=== PATIENT | male | born 1960 | race Caucasian/White ===

== ENCOUNTER 2018-06-27 18:58 | Outpatient (REF) | payer OTHER, SELFPAY ==
[2018-06-27 22:13] LABS: Anion Gap 7.5 mmol/L (3-11); BUN 19 mg/dL (7-18); CO2 30.5 mmol/L (21.0-32.0); CREATININE 1.39 mg/dL (0.70-1.30); Calcium 9.2 mg/dL (8.5-10.1); Chloride 103 mmol/L (98-107); Glucose 84 mg/dL (70-100); Potassium 4.3 mmol/L (3.5-5.1); Sodium 141 mmol/L (136-145)
== END 2018-06-27 19:18 ==
LOC: NCHCN 18:58
PROVIDERS: PCP Internal Medicine; Visit Provider Internal Medicine
DX: I10 Essential (primary) hypertension (principal)
CPT/HCPCS: 80048

== ENCOUNTER 2019-08-01 10:12 | Outpatient (CLI) | payer OTHER, SELFPAY ==
--- NOTE | 2019-08-01 10:45 | DI.RAD_ITS ---
EXAM: XR CHEST 2V PA LATERAL CLINICAL HISTORY: PERSISTENT COUGH, NONSMOKER, R05; FEVER, R50.9 TECHNIQUE: COMPARISON: No exams were available for comparison FINDINGS: There is a right humeral head prosthesis. The heart is not enlarged. There is some prominence of th e central pulmonary markings which may represent bronchial wall thickening without evidence of focal consolidation. No pleural effusion seen. IMPRESSION: Findings raising the possibility of bronchial inflammation. No focal consolidation seen.
== END 2019-08-01 10:32 ==
PROVIDERS: PCP Internal Medicine; Visit Provider Internal Medicine
DX: R05 Cough (principal); R50.9 Fever, unspecified; Z96.611 Presence of right artificial shoulder joint; J40 Bronchitis, not specified as acute or chronic
CPT/HCPCS: 71046

== ENCOUNTER 2019-08-01 15:27 | Outpatient (REF) | payer OTHER, SELFPAY ==
[2019-08-01 20:32] LABS: Abs Immature Grans 0.09 k/cumm (0.0-0.09); Absolute Basophil Count 0.05 k/cumm (0.0-0.2); Absolute Lymphocyte Count 1.27 k/cumm (1.2-3.4); Absolute Neutrophil Count 8.53 k/cumm (1.2-6.7); Basophils % 0.4; Eosinophils % 2.6; HCT 36.9 % (40.0-50.0); HGB 11.9 g/dL (13.5-17.5); Immature Grans % 0.8; Mean Corp. HGB Concentration 32.2 g/dL (32.0-36.0); Mean Corpuscular Hemoglobin 30.1 pg (27.0-33.0); Mean Corpuscular Volume 93.2 fL (80-95); Mean Platelet Volume 9.2 fL (8.0-11.0); Monocytes % 11.6; Neutrophils % 73.6; RBC 3.96 m/cumm (4.50-6.00); RBC Distribution Width 12.4 % (11.8-14.1); White Blood Cell Count 11.59 k/cumm (4.4-10.8)
[2019-08-01 20:56] LABS: ALT 43 U/L (16-63); AST 24 U/L (15-37); Albumin 2.9 g/dL (3.4-5.0); Alkaline Phosphatase 67 U/L (46-116); Anion Gap 8.5 mmol/L (3-11); BUN 13 mg/dL (7-18); Bilirubin, Total 0.3 mg/dL (0.2-1.0); CO2 29.5 mmol/L (21.0-32.0); CREATININE 0.89 mg/dL (0.70-1.30); Calcium 8.8 mg/dL (8.5-10.1); Chloride 104 mmol/L (98-107); Glucose 112 mg/dL (74-106); Potassium 4.6 mmol/L (3.5-5.1); Sodium 142 mmol/L (136-145); Total Protein 6.7 g/dL (6.4-8.2)
[2019-08-01 20:57] LABS: Absolute Monocyte Count 1.34 k/cumm (0.11-0.7)
[2019-08-01 21:41] LABS: Platelet Count 663 x1000/uL (130-400)
[2019-08-01 21:42] LABS: Diff Comment PLT Morph Reviewed; RBC Morphology Normal
== END 2019-08-01 15:47 ==
LOC: NCHCN 15:27
PROVIDERS: PCP Internal Medicine; Visit Provider Internal Medicine
DX: Z00.00 Encounter for general adult medical examination without abnormal findings (principal); I10 Essential (primary) hypertension
CPT/HCPCS: 80053; 85025

== ENCOUNTER 2019-08-02 17:01 | Outpatient (CLI) | payer OTHER, SELFPAY | END 2019-08-02 17:21 | PROVIDERS: PCP Internal Medicine; Visit Provider Internal Medicine | DX: R50.9 Fever, unspecified (principal) | CPT/HCPCS: 87040 ==

== ENCOUNTER 2021-06-28 13:16 | Outpatient (REF) | payer OTHER, SELFPAY ==
[2021-06-28 14:44] LABS: HCT 42.2 % (40.0-50.0); MCH 30.8 pg (27.0-33.0); MCHC 33.2 % (32.0-36.0); MPV 9.9 fL (8.0-11.0); Platelet Count 335 10^3/uL (130-400); RBC 4.54 10^6/uL (4.36-5.78); RDW 12.2 % (11.8-14.1); WBC 6.39 10^3/uL (4.4-10.8)
[2021-06-28 15:01] LABS: Anion Gap 12.5 mmol/L (3-11); BUN 13 mg/dL (7-18); CO2 25.5 mmol/L (21.0-32.0); CREATININE 0.9 mg/dL (0.70-1.30); Calcium 9.2 mg/dL (8.5-10.1); Calculated LDL 144 mg/dL (<100); Chloride 104 mmol/L (98-107); Cholesterol 238 mg/dL (<200); Glucose 108 mg/dL (74-106); HDL Cholesterol 79 mg/dL (40-60); Potassium 4.4 mmol/L (3.5-5.1); Sodium 142 mmol/L (136-145); Triglyceride 75 mg/dL (<150)
== END 2021-06-28 13:17 | disposition home or self-care (01) ==
LOC: NCHCN 13:16
PROVIDERS: PCP Internal Medicine; Visit Provider Internal Medicine
DX: I10 Essential (primary) hypertension (principal); Z13.220 Encounter for screening for lipoid disorders; Z00.00 Encounter for general adult medical examination without abnormal findings
CPT/HCPCS: 80048; 80061; 85027

== ENCOUNTER 2021-08-30 22:10 | Outpatient (REF) | payer OTHER, SELFPAY ==
[2021-08-30 22:26] LABS: BUN 18 mg/dL (7-18); Calcium 9.4 mg/dL (8.5-10.1); Chloride 102 mmol/L (98-107); Glucose 110 mg/dL (74-106); Potassium 4.7 mmol/L (3.5-5.1); Sodium 139 mmol/L (136-145)
[2021-08-31 11:40] LABS: Calculated LDL 90 mg/dL (<100); Cholesterol 190 mg/dL (<200); HDL Cholesterol 81 mg/dL (40-60); Triglyceride 99 mg/dL (<150)
== END 2021-08-30 22:11 | disposition home or self-care (01) ==
LOC: NCHCN 22:10
PROVIDERS: PCP Internal Medicine; Visit Provider Internal Medicine
DX: I10 Essential (primary) hypertension (principal); E78.5 Hyperlipidemia, unspecified
CPT/HCPCS: 80048; 80061

== ENCOUNTER 2022-10-06 00:50 | Outpatient (CLI) | payer BC, SELFPAY ==
--- NOTE | 2022-10-06 07:45 | DI.RAD_ITS ---
Exam(s) XR KNEE LT 3V AP,LAT,GERALDINE EXAM: XR KNEE LT 3V AP,LAT,GERALDINE CLINICAL HISTORY: BILATERAL KNEE OA, RT MORE THAN LT, M17.0. TECHNIQUE: 2D digital imaging was performed. Three views. COMPARISON: No exams were available for comparison FINDINGS: BONES: No acute fracture is present. No bony destructive lesion is seen. JOINTS: Moderate severe narrowing of the medial femoral tibial joint space. Minimal periarticular sp urring noted throughout. Patellofemoral degenerative changes. No joint effusion is seen. SOFT TISSUE: vascular calcifications. IMPRESSION: Advanced degenerative changes of the medial femoral tibial joint. DATA REPOSITORY: RADIATION DOSE DELIVERED:
--- NOTE | 2022-10-06 07:45 | DI.RAD_ITS ---
Exam(s) XR KNEE RT 3V AP,LAT,GERALDINE EXAM: XR KNEE RT 3V AP,LAT,GERALDINE CLINICAL HISTORY: OA BILATERAL KNEES, M17.0, RIGHT MORE THAN LEFT. TECHNIQUE: 2D digital imaging was performed. Three views. COMPARISON: CR XR KNEE LT 3V AP,LAT,GERALDINE from 10/06/2022 FINDINGS: BONES: No acute fracture is present. No bony destructive lesion is seen. JOINTS: Severe narrowing of the medial femoral tibial joint there is periarticular spurring. There i s mild lateral subluxation of the tibia with respect to the distal femur. Mild varus angulation. De generative changes of the patellofemoral joint which is not well profiled. No joint effusion is seen . SOFT TISSUE: Normal. IMPRESSION: Advanced degenerative changes of the medial femoral tibial joint. DATA REPOSITORY: RADIATION DOSE DELIVERED:
== END 2022-10-06 01:10 ==
PROVIDERS: PCP Internal Medicine; Visit Provider Internal Medicine
DX: M17.0 Bilateral primary osteoarthritis of knee (principal)
CPT/HCPCS: 73562

== ENCOUNTER 2023-01-11 04:37 | Outpatient (CLI) | payer BC, SELFPAY ==
[2023-01-11 15:39] LABS: HCT 38.5 % (40.0-50.0); HGB 12.7 g/dL (13.5-17.5); MCH 30.6 pg (27.0-33.0); MCV 93 fL (80-95); MPV 9.2 fL (8.0-11.0); Platelet Count 372 10^3/uL (130-400); RBC 4.15 10^6/uL (4.36-5.78); RDW 12.3 % (11.8-14.1); RDW-SD 42.3 fL; WBC 8.59 10^3/uL (4.4-10.8)
[2023-01-11 16:01] LABS: Anion Gap 3.1 mmol/L (3-11); BUN 22 mg/dL (7-18); CO2 32.9 mmol/L (21.0-32.0); Calcium 9.2 mg/dL (8.5-10.1); Chloride 106 mmol/L (98-107); Estimated GFR 84.57 (mL/min/1.73m2); Glucose 115 mg/dL (74-106); Potassium 4.6 mmol/L (3.5-5.1); Sodium 142 mmol/L (136-145)
== END 2023-01-11 04:38 | disposition home or self-care (01) ==
LOC: LBO 04:38
PROVIDERS: PCP Internal Medicine; Visit Provider Student in an Organized Health Care Education/Training Program
DX: M25.561 Pain in right knee (principal); M25.562 Pain in left knee; M17.0 Bilateral primary osteoarthritis of knee; Z01.818 Encounter for other preprocedural examination; Z01.812 Encounter for preprocedural laboratory examination
CPT/HCPCS: 36415; 80048; 85027

== ENCOUNTER 2023-01-11 14:20 | Outpatient (CLI) | payer BC, SELFPAY ==
--- NOTE | 2023-01-11 13:45 | DI.RAD_ITS ---
Exam(s) XR STANDING ALIGNMENT EXAM: XR STANDING ALIGNMENT CLINICAL HISTORY: PRE OP R TKA. TECHNIQUE: 2D digital imaging was performed. COMPARISON: CR XR KNEE RT 3V AP,LAT,GERALDINE from 10/06/2022 FINDINGS: 3 views There is advanced narrowing of the medial compartment of the right knee. There is moderate narrowing of the medial compartment of the left knee. Normal height of both lateral compartments. There is advanced narrowing of the superior joint space of the left [id number]. Right hip appe ars unremarkable. Ankles unremarkable. IMPRESSION: Bilateral medial compartment narrowing in the knees, more prominent on the right side. Advanced osteoarthritic narrowing of the left hip joint. DATA REPOSITORY: RADIATION DOSE DELIVERED:
--- NOTE | 2023-01-11 14:00 | DI.RAD_ITS ---
Exam(s) XR KNEE RT 1V EXAM: XR KNEE RT 1V CLINICAL HISTORY: PREOP. TECHNIQUE: 2D digital imaging was performed. COMPARISON: CR XR KNEE RT 3V AP,LAT,GERALDINE from 10/06/2022 FINDINGS: Single lateral view There is advanced narrowing of the medial compartment evident. Moderate degenerative changes in the patellofemoral compartment. IMPRESSION: As above. DATA REPOSITORY: RADIATION DOSE DELIVERED:
== END 2023-01-11 14:21 | disposition home or self-care (01) ==
LOC: DIORS 14:20
PROVIDERS: PCP Internal Medicine; Referring Provider Internal Medicine; Visit Provider Physician Assistant
DX: M17.0 Bilateral primary osteoarthritis of knee (principal)
CPT/HCPCS: 73560; 77073

== ENCOUNTER 2023-01-16 05:54 | Day surgery (SDC) | payer BC, SELFPAY ==
--- NOTE | 2023-01-15 16:49 | ANES.PREOP_ITS ---
General Info Date of Service Date Performed: 01/16/23 Height: 5 ft 7 in Weight: 75.296 kg Body Mass Index (BMI): 25.9 Surgical Procedure: Operation Date: 01/16/23 07:40 Proposed Procedure Side Surgeon p Knee Total Arthroplasty, Cementless CR/FB Right Juanjose Erickson MD s Injection Knee Left Juanjose Erickson MD Meds Allergies and Home Medications Allergies Allergy/AdvReac Type Severity Reaction Status Date / Time No Known Allergies Allergy Verified 01/16/23 06:14 Home Medication Medication Instructions Recorded atorvastatin 10 mg tablet 10 mg PO DAILY 10/10/22 hydrochlorothiazide 12.5 mg tablet 12.5 mg PO DAILY 10/10/22 lisinopril 10 mg tablet 10 mg PO DAILY 10/10/22 acetaminophen 500 mg tablet 1,000 mg PO Q8H PRN pain #90 tabs 01/16/23 aspirin 81 mg tablet,delayed 81 mg PO BID 30 days #60 tabs 01/16/23 release celecoxib 200 mg capsule (Celebrex) 200 mg PO BID PRN #60 caps 01/16/23 dexamethasone 4 mg tablet 4 mg PO DAILY #2 tabs 01/16/23 docusate sodium 100 mg capsule 100 mg PO BID #30 caps 01/16/23 (Colace) gabapentin 300 mg capsule 300 mg PO QHS #14 caps 01/16/23 oxycodone 5 mg tablet 5 mg PO Q4H PRN #18 tabs 01/16/23 pantoprazole 40 mg tablet,delayed 40 mg PO DAILY #14 tabs 01/16/23 release Current Visit Medications: Current Medications Generic Name Dose Route Start Last Admin Trade Name Nydia PRN Reason Stop Dose Admin Acetaminophen 1,000 mg 01/16/23 06:00 Acetaminophen 500 Mg Tab PO 02/15/23 05:59 PREOP ZANDRA Celecoxib 400 mg 01/16/23 06:00 Celecoxib 200 Mg Cap PO 02/15/23 05:59 PREOP ZANDRA Gabapentin 300 mg 01/16/23 06:00 Gabapentin 300 Mg Cap PO 02/15/23 05:59 PREOP ZANDRA Tranexamic Acid 1,000 mg/ 60 mls @ 360 mls/hr 01/16/23 06:00 Sodium Chloride IVPB 02/15/23 05:59 PREOP ZANDRA Ringer's Solution 1,000 mls @ 80 mls/hr 01/16/23 06:00 IV 02/14/23 23:59 INFUSION ZANDRA Cefazolin Sodium/Dextrose 2 gm in 50 mls @ 100 mls/hr 01/16/23 06:00 Ancef Duplex IVPB 01/16/23 16:00 PREOP ZANDRA IV Miscellaneous Supplies 1 each 01/16/23 06:00 Iv Access IV 02/14/23 23:59 DIRECTED ZANDRA Sodium Chloride 0 ml 01/16/23 06:00 Normal Saline Flush 10 Ml Syr IV 02/14/23 23:59 PRN PRN Sodium Chloride 0 ml 01/16/23 06:00 Normal Saline 10 Ml Vial IJ 02/14/23 23:59 DIRECTED PRN Sterile Water 0 ml 01/16/23 06:00 Water,Injection,Sterile 10 Ml Vial IJ 02/14/23 23:59 DIRECTED PRN PFSH Active Problems Active Problems: Problem Status Onset Code Arthritis of left knee M17.12 Carotid bruit R09.89 Hyperlipidemia E78.5 Osteoarthritis of right knee M17.11 Hypertension I10 Medical History Medical History (Updated 01/16/23 @ 06:17 by Charmaine Gray) Eczema Hx of essential hypertension Hx of hyperlipidemia Surgical History Surgical History History of arthroscopy of right knee Hx of appendectomy Status post total replacement of right shoulder Tobacco Smoking/Tobacco Use Status: Never Alcohol Alcohol Intake: current Alcohol intake frequency: a few times a week Alcohol type: beer Substance Use Substance use: Never Substance use type: does not use Vital Signs and Lab Results Vital Signs Comment Vital Signs Comment:: Temp Pulse Resp BP Pulse Ox 36.6 C 77 18 155/94 H 99 01/16/23 07:23 01/16/23 07:23 01/16/23 07:23 01/16/23 07:23 01/16/23 07:23 Lab Results Blood Type / Crossmatch: No Data to Display Complete Blood Count: White Blood Count 8.59 10^3/uL (4.4-10.8) 01/11/23 15:23 Red Blood Count 4.15 10^6/uL (4.36-5.78) L 01/11/23 15:23 Hemoglobin 12.7 g/dL (13.5-17.5) L 01/11/23 15:23 Hematocrit 38.5 % (40.0-50.0) L 01/11/23 15:23 Platelet Count 372 10^3/uL (130-400) 01/11/23 15:23 Complete Metabolic Panel: Sodium 142 mmol/L (136-145) 01/11/23 15:23 Potassium 4.6 mmol/L (3.5-5.1) 01/11/23 15:23 Chloride 106 mmol/L (98-107) 01/11/23 15:23 Carbon Dioxide 32.9 mmol/L (21.0-32.0) H 01/11/23 15:23 BUN 22 mg/dL (7-18) H 01/11/23 15:23 Creatinine 1.0 mg/dL (0.70-1.30) 01/11/23 15:23 Est GFR (CKD-EPI 2020) 84.57 (mL/min/1.73m2) 01/11/23 15:23 Calcium 9.2 mg/dL (8.5-10.1) 01/11/23 15:23 Glucose 115 mg/dL (74-106) H 01/11/23 15:23 Liver Function Panel: No Data to Display Coagulation Panel: No Data to Display Cardiac Panel: No Data to Display Arterial Blood Gas: No Data to Display Venous Blood Gas: No Data to Display Pancreas Panel: No Data to Display Thyroid Panel: No Data to Display Infectious Disease: No Data to Display Blood Cultures: No Data to Display Toxicology Panel: No Data to Display Imaging and Studies Imaging and Studies Study information below may be from another EMR and interpreted by another provider. Please see original notes in EMR for more complete details. Carotid Artery Summary:: Patient Name: Venkatesh Lua #: [id number]: SILVER Ordering Provider: Juanjose Erickson M.D. : [facility] Primary Care Provider: Cy Valle M.D.Date of Exam: 01/11/23Sex: M Admission Date: 01/11/23 : 1960 Age: 62 Exam(s) US CAROTID EXAM: US CAROTID CLINICAL HISTORY: preop R09.89 SYMPTOMS CIRCULATORY AND RESPIRATORY SYSTEMS, CAROTID BRUIT. TECHNIQUE: Ultrasound carotids performed using grayscale, color-flow, and spectral Doppler imaging. COMPARISON: No exams were available for comparison FINDINGS: CAROTID ARTERIES: On the left side there is noncalcified plaque in the distal left CCA-carotid bulb. No elevated velocities at level but estimated at 50 percent stenosis. Higher velocities are noted in the proximal left external carotid artery registering at 250cm/sec, of questionable clinical significance. Velocities in the mid and upper left internal carotid artery in the neck are within normal limits. On the right side there is some noncalcified plaque at the carotid bulb and proximal right ICA both out significantly elevated velocities.. Amount of stenosis approximately 30 percent. No significantly elevated velocities in the proximal external carotid artery on this side. POSTERIOR CIRCULATION: Antegrade flow demonstrated in both vertebral arteries. VERTEBRAL ARTERIES: Antegrade flow. Measurements: R Bulb: 88.4cm/s PS / 27.8cm/s ED R CCA: 104.3cm/s PS / 28.1cm/s ED R ECA: 92cm/s PS / 18.1cm/s ED R ICA Prox: 83.8cm/s PS / 27.2cm/s ED R ICA Mid: 56.2cm/s PS / 19.5cm/s ED R ICA Distal: 90.5cm/s PS /34.2cm/s ED R Vert: 72.1cm/s PS / 25.6cm/s ED R SVR: 0.9 R DVR: 1.2 L Bulb: 86.9cm/s PS / 34cm/s ED L CCA: 81.9cm/s PS / 28.6cm/s ED L ECA: 250.5cm/s PS / 38.8cm/s ED L ICA Prox: 100.5cm/s PS / 29cm/s ED L ICA Mid: 88.4cm/s PS / 33.8cm/s ED L ICA Distal: 71.4cm/s PS / 29cm/s ED L Vert: 114.7cm/s PS / 34.8cm/s ED L SVR: 1.2 L DVR: 1 IMPRESSION: There is plaque bilaterally at the carotid bulbs and proximal internal carotid a rteries. Lack of elevated velocities in these vessels indicate that the amount of stenosis is less than 50 percent bilaterally. Elevated velocity noted in the proximal left external carotid artery which is not clinically significant. Antegrade flow is demonstrated in both vertebral arteries. Criteria for Carotid Stenosis: Normal: ICA PSV <125 cm/s no plaque or intimal thickening is visible. <50% stenosis: ICA PSV <125 cm/s and plaque or intimal thickening is visible. 50-69% stenosis: ICA PSV is 125-250 cm/s and plaque is visible. >70% stenosis to near occlusion: ICA PSV >250 cm/s with visible plaque and luminal narrowing. Anesthesia Assessment and Plan Anesthesia History Personal History: No History of Anesthesia Complications, No History of General Anesthesia and Unknown Anesthesia History Family History: No Family History of Anesthesia Complications Exercise Tolerance Exercise Tolerance: Metabolic Equivalents>4 Pertinent Negatives Pertinent Negatives: No Symptoms of GERD, No Major Cardiovascular Symptoms or Complaints, No Major Pulmonary Symptoms or Complaints and No History of CVA/TIA Cardiac & Pulmonary Exam Cardiac Exam: Normal S1/S2 Heart Sounds Pulmonary Exam: Clear Bilateral Breath Sounds Implantable Cardiac Device Does patient have a Pacemaker or an ICD?: No Airway Exam Known Difficult Airway: No Mallampati Class: 3 Mouth Opening: Normal (> 3cm) Thyromental Distance: Greater than 3 cm Neck Range of Motion: Full ROM Neck Circumference: Normal Teeth Condition: Normal Dentition ASA Classification ASA Score: ASA 2 Emergency Case?: No NPO Status NPO Status: NPO Clears >2 hours, Solids >8 hours Anesthesia Plan Resuscitation Status: Full Code Anesthesia Technique: General Anesthesia Airway Planned: Natural Airway Pain Management: Surgeon and patient request nerve block Monitors Used: Standard Monitors
[2023-01-16] VITALS (10 sets, daily range): BP systolic 131–157; BP diastolic 67–94; PULSE 61–83; RESP 14–20; TEMP 36.3–36.7; O2SAT 96–99; BMI 25.9
[2023-01-16] MEDS: Acetaminophen 500 MG TAB 1000 MG PO (06:34)
[2023-01-16] MEDS: Celecoxib 200 MG CAP 400 MG PO (06:35)
[2023-01-16] MEDS: Gabapentin 300 MG CAP PO (06:35)
[2023-01-16] MEDS: Lactated Ringers 1,000 ML 80 ML IV (06:50)
--- NOTE | 2023-01-16 07:58 | W.ANESNERVE ---
Nerve Block Single Injection Procedure Date and Time Date Performed: 01/16/23 Procedure Start: : Location Where Procedure Performed Procedure Location: Day Surgery Unit Reason Performed: Postoperative Analgesia Requesting Provider: Juanjose Erickson Timeout Performed Timeout Performed: Yes Monitoring Used ECG Sterility Sterility: Hand Hygiene, Surgical Cap, Surgical Mask, Sterile Gloves and Chlorhexidine Sedation Given During Procedure Sedation Given (Indicate Dose Given): No Sedation given Patient Mental Status Patient Mental Status: Awake Nerve Block 1st Nerve Block: Laterality: Right Block Type: Adductor Canal Ultrasound Image Saved?: Yes Needle / Catheter Used: 100mm SonoPlex II Local Anesthetic Bolus (Indicate Dose Given): Lidocaine used for local infiltration of skin, Injected in 3-5ml increments after negative blood aspiration and Bupivacaine 0.25% Dose:: 15 ml Additives (Indicate Dose Given): None Ultrasound: Sterile probe cover and gel used Nerve Stimulator: Not Used Paresthesia: None Procedure Tolerated: No Complications Procedure Outcome: Successful Performed By: Jared Guzman Supervised By: Kimberly Phillips
[2023-01-16] MEDS: ceFAZolin 2 GM/50 ML BAG IVPB (08:00)
[2023-01-16] MEDS: methylPREDNISolone ACETATE 80 MG/ML VIAL (08:54)
[2023-01-16] MEDS: Bupivacaine 0.25% Pres-Free 10 ML VIAL (08:55)
--- NOTE | 2023-01-16 11:13 | W.ANESPOSTOP ---
Postoperative Evaluation Date, Time and Location Date Performed: 01/16/23 Time Performed: 11:13 Patient Location: Day Surgery Unit Vital Signs Most Recent Imported Vital Signs: Most Recent Vital Signs Temp Pulse Resp BP Pulse Ox 36.3 C L 72 16 146/84 H 98 01/16/23 10:34 01/16/23 10:34 01/16/23 10:34 01/16/23 10:34 01/16/23 10:34 Pain Score Most Recent Pain Score: Most Recent Pain Score Pain Level 3 01/16/23 10:34 Assessment Mental Status: Awake (Alert & Oriented to Patient Baseline) Airway and Respiratory Function: Patent airway with normal (patient baseline) respiratory exam Cardiovascular Function: Hemodynamically Stable Hydration Status: Adequately Hydrated Nausea & Vomiting: No Nausea or Vomiting Pain: Pain is tolerable per patient Peripheral Nerve Block: Regional nerve block not resolved at time of post operative discharge
--- NOTE | 2023-01-16 11:45 | PT.INIE ---
PT Notes Visit Reasons: Bilateral knee DJD Physical Therapy Day Surgery Initial Evaluation Date: 01/16/2023 Referring Doctor: SERGIO Agarwal PT Orders: PT CONSULT: Eval/treat Precautions: WBAT on left LE with AD. Patient Profile/Admitting Diagnosis: Avril Meléndez 62-year-old male with degenerative joint disease of bilateral knees and is status post right total knee arthroplasty on postoperative day 0. PMHX: Medical History?(Updated 12/15/22 @ 07:09 by Juanjose Erickson MD) Eczema Surgical History?(Updated 01/11/23 @ 13:21 by Peri Beal) History of arthroscopy of right knee Hx of appendectomy Status post total replacement of right shoulder Social History/Home Situation: Daughter will be at home to provide support for patient as he recovers. Has 2 steps to enter without rails. Bedroom is on the second floor of the house with a flight of stairs with a rail on the right side going up. Walks up to 5 miles a day prior to surgery. Equipment Owned/DME: Walking stick Subjective: Reports R foot being numb and funny feeling. Reports 1/10 pain in the R knee. Objective: General Observation: Supine in bed. Mehran wraps to left LE. Cryo/Cuff to left knee. TEDS on the right leg. Mental Status: Alert and oriented x4. Pain: 1/10 on the R knee ROM: Right Lower Extremity: Hip flexion WFL. Hip abduction WFL. Knee flexion 15 degrees to about 95 degrees. Knee extension -15 degrees. Ankle dorsiflexion -20 to -10 degrees. Ankle plantarflexion 10 degrees. Left Lower Extremity: Hip flexion WFL. Hip abduction WFL. Knee flexion WFL. Ankle dorsiflexion WFL. Ankle plantarflexion WFL. Strength: Right Lower Extremity: Hip flexors 4/5. Hip abductors 4/5. Knee flexors 3-/5. Knee extensors 3-/5. Ankle dorsiflexors 2-/5. Ankle plantarflexors 2-/5. Left Lower Extremity: Hip flexors 5/5. Hip abductors 5/5. Knee flexors 5/5. Knee extensors 5/5. Ankle dorsiflexors 5/5. Ankle plantarflexors 5/5. Sensation: Reports numbness on the right foot Bed Mobility/Transfers: Supine to sit stand by assist Sit to stand stand by assist Stand to sit stand by assist Bed to chair stand by assist Gait: Navigated at 250 feet on level surface ambulation with step to gait pattern using front-wheeled walker and contact-guard assist. Minimal foot slap noted on the right foot due to decreased dorsiflexion. Cues provided to ensure full knee extension on the right at R mid stance before advancing the left LE. Patient reported numbness on the right foot. No LOB. Balance: Static Sitting: Normal Dynamic Sitting: Normal Static Standing: Fair Dynamic Standing: Fair Special Tests: Mobility Limitations Standardized Measure [facility] AM-PAC 6 clicks Basic Mobility Inpatient Short Form: Raw Score: 22 CMS Score: 21% deficit Informed Consent/Education: Patient instructed in purpose of PT consult. Packet containing TKA exercise protocol has been given to patient. Education and training on initial set of exercises that can be done at home have been completed with patient. THERA EX: Facilitated safe performance of exercises listed below for the first 2 weeks while recovering at home to promote knee range of motion and functional mobility progression: Access Code: [email or web address] URL: [email or web address] Date: 01/16/2023 Prepared by: Bell Gonzalez Exercises - Supine Quad Set - 1 x daily - 7 x weekly - 1 sets - 10 reps - 5 hold - Supine Quadricep Sets - 1 x daily - 7 x weekly - 1 sets - 10 reps - 5 hold - Supine Heel Slide - 1 x daily - 7 x weekly - 1 sets - 10 reps - 5 hold - Supine Ankle Pumps - 1 x daily - 7 x weekly - 1 sets - 10 reps - 5 hold - Small Range Straight Leg Raise - 1 x daily - 7 x weekly - 1 sets - 10 reps - 5 hold - Seated March - 1 x daily - 7 x weekly - 1 sets - 10 reps - 5 hold Assessment: Patient requires the use of a front wheel walker to maximize independence and reduce fall risk. Noted minimal foot slap due to weak dorsiflexor on the right. Patient presents with clinical signs and symptoms consistent with current/admitting diagnoses that have resulted to mobility limitations, gait instability, generalized weakness, and impairment of motor control as demonstrated by the following impairment level findings: 1. Decreased strength to right knee major muscle groups 2. Impaired standing balance 3. Limitation of joint range of motion in right knee Impairments are contributing to the following functional limitations: 1. Inability to safely ambulate without assistive device 2. Increase completion time for mobility ADL performance 3. Increased fall risk Patient is assessed as a 82143 moderate complexity based on the following: History: 62-year-old male with impairment level findings, functional limitations, and past medical history as indicated above Examination: Demonstrable impairment in strength, balance, and mobility level with underlying impairments and functional limitations as documented above Presentation: Evolving Decision Makin moderate complexity Goals: N/A. PT evaluation and 1-2 treatment sessions only for functional mobility training using recommended AD and for HEP instruction. Thank you Plan of Care/Treatment Plan: N/A. PT evaluation and 1-2 treatment session only for functional mobility training using recommended AD and for HEP instruction. DISCHARGE RECOMMENDATIONS: Home when medically cleared by orthopedic surgeon. Recommend outpatient PT services in order to optimize functional mobility outcomes and facilitate return to independent community ambulation without an assistive device. TREATMENT CODE/TIME: 33412 x 20 minutes, 69278 x 26 minutes beginning at 11:47 AM. Thank you for the opportunity to participate in the care of this patient. Bell Gonzalez PT, DPT, CLT [facility] [place], [place]
--- NOTE | 2023-01-16 13:33 | DSE_ITS ---
Date of service: 01/16/23 Time of Service: 07:25 DS: Diagnosis Discharge Diagnosis (1) Osteoarthritis of right knee: Status: Acute (2) Arthritis of left knee: Status: Acute Discharge Plan Disposition Patient Disposition: Home Condition: Good Discharge Details Reason For Visit: Bilateral knee DJD Attending Provider: Juanjose Erickson Primary Care Provider: Cy Valle Home Meds and New Rx's Prescriptions: New acetaminophen 500 mg tablet 1,000 mg PO Q8H PRN Qty: 90 0RF Rx Instructions: Take two tablets up to every 8 hours as needed for pain celecoxib [Celebrex] 200 mg capsule 200 mg PO BID PRNQty: 60 0RF Rx Instructions: Take one tablet twice daily for pain and inflammation aspirin 81 mg tablet,delayed release (DR/EC) 81 mg PO BID 30 Days Qty: 60 0RF docusate sodium [Colace] 100 mg capsule 100 mg PO BID Qty: 30 0RF pantoprazole 40 mg tablet,delayed release (DR/EC) 40 mg PO DAILY Qty: 14 0RF dexamethasone 4 mg tablet 4 mg PO DAILY Qty: 2 0RF Rx Instructions: Take one tablet once daily for two days gabapentin 300 mg capsule 300 mg PO QHS Qty: 14 0RF Rx Instructions: Take one tablet at bedtime oxycodone 5 mg tablet 5 mg PO Q4H PRNQty: 18 0RF Rx Instructions: Take one tablet up to every 4 hours as needed for severe postoperative pain Continued lisinopril 10 mg tablet 10 mg PO DAILY hydrochlorothiazide 12.5 mg tablet 12.5 mg PO DAILY atorvastatin 10 mg tablet 10 mg PO DAILY Discontinued aspirin [Adult Aspirin Regimen] 81 mg tablet,delayed release (DR/EC) 81 mg PO DAILY ibuprofen 400 mg Tablet 400 mg PO Q6H Discharge Instructions Additional Instructions: Total Knee Discharge Instructions Activity: The most important activity is to walk and to work on gentle motion (both flexion and extension). You should try to take short walks a few times a day. It is important that when resting you work on keeping the knee straight. Avoid putting a pillow behind the knee as this will encourage flexion. Work on range of motion exercises as provided by Physical Therapy. - Start outpatient physical therapy within 2 weeks. - You should wear the LEIDA hose on both legs for 2 weeks. You may remove these at night. You may also use any compression sock in place of the LEIDA hose. - Utilize [employer] to review exercises, see videos on exercises and obtain basic information pertaining to your surgery and your recovery. After knee injection can have several days of increased discomfort/pressure. May apply ice as needed. Can take up to 2 weeks for steroid to have full effect. Dressing: Remove the Mehran wrap by 2 days after your surgery and put on the LEIDA stocking given to you from the hospital. Keep the surgical dressing (underneath the MEHRAN wrap) in place for at least one week. After the first week it may be removed and replaced with light gauze and tape or nothing. The wound and dressing may get wet after 3 days but avoid soaking the dressing or otherwise it will need to be changed. Many people prefer covering the dressing with cling wrap (saran wrap) to minimize it from getting soaked. If it gets wet, just pat dry. If it starts to peel off then it will need to be changed. Medications: - You should take Tylenol and anti-inflammatory Celebrex as your primary pain control medications. If the Celebrex is too expensive or not covered, please call the office for another alternative (Advil/Ibuprofen or Naproxen/Aleve) - You have been prescribed a stronger pain medication Oxycodone for breakthrough pain, take as needed as prescribed. - You have also been prescribed a stomach acid reduction agent Pantoprozole to help reduce stomach acid and reflux. - You have been prescribed Gabapentin to take at night for restlessness and nerve pain. - You will be taking Aspirin 81mg twice a day for DVT prevention unless instructed otherwise. - You have also been prescribed Decadron to take to control post-operative nausea and pain. You will start this tomorrow. - If you have constipation you should take Colace (which has been prescribed) or Miralax (which is available [id number]). It takes most people 3-4 days to have a bowel movement. Follow-up: 2 weeks If you have any acute concerns or questions, please do not hesitate to contact the office at [phone]. You may contact Dr. Erickson with any questions after hours through the hospital at [phone] or on his cell phone at [phone]. Stand Alone Forms: Anesthesia Discharge Inst., Veronica.Nerve Block Instructions, Kain Cruz (DSU) Referrals: Juanjose Erickson MD [ [facility] STAFF PHYSICIAN] - Equipment/Supplies: Walker Activity:: Elevate Remove Dressings/Wound Care:: Do Not Remove Shower/Bathe:: Cover Diet:: As Tolerated Discharge Orders Discharge Orders: Discharge Order (Routine); Ordered 01/16/23 Ordered By: Juanjose Erickson DS: Summary Time Spent with Patient providing and/or coordinating discharge services: Less than 30 minutes Status at Discharge Functional status at discharge: uses cane/walker Overall status at discharge: patient is progressing back to baseline Mental Status: mental status grossly normal Speech and Movement: speech and movement normal Mood: congruent mood Affect: normal affect Exam Extrem Other: Nawaf has been able to get up and walk with physical therapy. However, he did notice the weakness to his right foot. On examination he does have some dysesthesias over the anterior lateral leg as well as the dorsum of the right foot. He has weakness to ankle dorsiflexion and eversion. There is some flicker of EHL and tib ant function, less peroneal function. Psych Mental Status: mental status grossly normal Speech and Movement: speech and movement normal Mood: congruent mood Affect: normal affect DS: Data Vitals/I&O Vitals and I&O: Vital Signs Temperature 98.1 F 01/16/23 06:23 Pulse 75 01/16/23 06:23 Pulse Rhythm Regular 01/16/23 06:23 Respiratory Rate 14 01/16/23 06:23 Respiratory Depth Normal 01/16/23 06:23 Blood Pressure 147/93 H 01/16/23 06:23 Pulse Oximetry 99 01/16/23 06:23 Oxygen Delivery Method Room Air 01/16/23 06:23 Oxygen Flow Rate 0 01/16/23 06:23 Pain Level 7 01/16/23 06:23 Intake & Output 01/15/23 01/15/23 01/16/23 11:59 23:59 11:59 Weight 166 lb 166 lb 166 lb 7.184 oz Additional Comments Additional comments: We will check in tomorrow on nerve function as this decreased function of the right leg is likely attributed to para-articular injection which should subside over the next few hours PFSH All Active Problems Hypertension (Chronic) Osteoarthritis of right knee (Acute) Hyperlipidemia (Acute) Carotid bruit (Acute) Arthritis of left knee (Acute) Medical History Eczema Hx of essential hypertension Hx of hyperlipidemia Surgical History History of arthroscopy of right knee Hx of appendectomy Status post total replacement of right shoulder Social History Smoking/Tobacco Use Status: Never Smoking risk assessment performed?: Yes Alcohol Intake: current Alcohol Intake frequency: a few times a week Alcohol type: beer Drug use: Never Substance use type: does not use Details: alcohol: t-2, 2 beers Do you feel safe at home: Yes Do you feel safe in your relationship?: Yes Time Spent with Patient Time Spent with Patient: <45 minutes Time was spent: ordering medications,tests, procedures, indepentently interpreting results and counseling the patient
--- NOTE | 2023-01-16 21:52 | ROE_ITS ---
Date of service: 01/16/23 Time of Service: 09:45 Operative Note Operative Note DATE OF PROCEDURE: 01/17/23 PRE-OP DIAGNOSIS: Right Knee Osteoarthritis Left Knee Osteoarthritis POST-OP DIAGNOSIS: same PROCEDURE: Right Total Knee Replacement with Intraoperative Navigation Left Knee Injection SURGEON: Juanjose Erickson SUPERVISOR [employer]ING: Peri Beal ANESTHESIA TYPE: Spinal Refer to Anesthesia Record ESTIMATED BLOOD LOSS: 100 PATHOLOGY: none sent TOURNIQUET TIME: 0 COMPLICATIONS: None Patient was transported to: PACU Patient's condition: stable Implants: 1. Depuy Attune Cementless Cruciate Retaining Femoral Component, Size 8 2. Depuy Attune Cementless Fixed Bearing Tibial Component, Size 7 3. Depuy Attune 8x8 CR/FB Poly 4. Depuy Attune Patellar Component, Size 38 Indications: I have seen Nawaf in clinic for symptoms of RIGHT knee arthritis, confirmed with radiographic findings. Nawaf has exhausted nonoperative methods and was having significant limitations in daily function and desired better function and less pain. I discussed the technical details of a knee replacement. I explained the risks of the procedure to include, but not limited to, bleeding, infection, pain, stiffness, fracture, damage to nerves and vessels, damage to muscles and tendons, loosening, need for repeat procedure, blood clot and cardiopulmonary demise. Despite these risks, he elected to proceed. Findings: There was significant signs of arthritis throughout the knee with swaths of exposed bone throughout the trochlea and medial compartment. The left knee was successfully injected. Procedure Description: Nawaf was greeted in the preoperative holding area where the correct side was identified and marked. The consent was reviewed with the patient and signed. The history and physical was updated. All questions were answered. Preoperative mediacations were administered: Acetaminophen 1000mg, Celebrex 400mg, and Gabapentin 300mg. An adductor canal block was then administered by the anesthesia team in the PACU. He was taken back to the operating room. A spinal anesthestic was then administered. The patient was placed into the supine position on the operating room table. Posts were placed for positioning during the procedure. All bony prominences were well padded. Prophylactic antibiotics in the form of Cefazolin were administered. 1g of Tranxemic Acid was given intravenously within 30 minutes of incision. The left knee was prepped with ChloraPrep and, using a superolateral approach, injected with 6 cc of 0.5% bupivacaine and 80 mg Depo-Medrol. A Band-Aid was applied. The right leg was then prepped with Chloraprep and draped in a standard fashion with impervious stockinette. A second prep with Chloraprep was performed prior to application of Iodine impregnated skin protection. A timeout to confirm correct identity, side and site, procedure, allergies, anesthesia, and medical concerns was performed. With the knee in some flexion, a midline incision was made overlying the knee. Full thickness skin flaps were raised once the extensor mechanism was encountered. These were raised medially and laterally. Any bleeding was con trolled with electrocautery. Once the extensor mechanism was fully exposed, a medial parapatellar arthrotomy was performed in a flexed position. All bleeding from the arthrotomy and the geniculate arteries was coagulated. A medial subperiosteal peel was performed with electrocautery to the midcoronal plane. Due to the significant varus deformity the entire medial tibial plateau was exposed. The fat pad was removed while keeping the patellar tendon protected. The anterior distal femur synovium was removed for later visualization. The ACL and PCL were resected and the anterior horn of the lateral meniscus was transected. The knee was then flexed with the patella everted. Large osteophytes from the tibia were removed. Large osteophytes from the femur were removed. There were large swath of exposed bone within the trochlea and the medial compartment along with a large osteochondral defect within the central portion of the patella. A single starting pin was then placed 1cm anterior to the PCL insertion and the notch in the direction of the femoral head. The OrthoAlign device was applied over the pin. It was oriented to be in line with the epicondylar axis and the trochlear groove. It was then pinned into place. The navigation computer was then turned on and calibrated. The distal femur cut was set at 0.5 degrees varus and 3 degrees flexion. The distal femur cutting guide then was positioned for a 9mm cut. The distal femur was cut with an oscillating saw while protecting the soft tissues. The tibia was then addressed. The OrthoAlign device was placed over the tibial tubercle and medial tibia and secured into position. Once again, OrthoAlign was calibrated and then set for a 2 degrees varus cut and 5 degrees of posterior slope. With this locked into position, the cut thickness stylus was used to assess cut thickness. The medial side, most involved side, was set for a 4mm cut. This was then held in position and pinned into place with 2 additional pins and a cross pin for stability. The medial and lateral collateral ligaments were protected and the cut was performed. With this completed, it was assessed and noted to be of appropriate dimensions. The guide and OrthoAlign was removed. A spacer block was inserted and the knee was brought into extension to ensure enough space was present. The femur was then sized as a size 8. The Orthoalign gap balancing device was then placed in extension. This was used to ensure that the ligaments were properly balanced with up to 2 to 3 mm laxity laterally compared medially. The extension gap was measured as 19mm. Further releases medially were performed removing osteophytes from the medial?posterior medial tibia as well as releasing and recessing some of the MCL to improve balance in extension. The knee was then brought into 90 degrees of flexion and the ligament gaming cashier was once again placed. Under the same amount of force the flexion gap was measured. The attune specific jig was placed and the flexion gap was made to match the extension gap. The 4-in-1 cutting guide was the placed. An varinder wing was used to confirm appropriate position of the anterior cut to avoid notching. This cutting guide was ensured to be flush on the cut surface and then pinned into place with headed pins. While protecting the soft tissues, quad tendon, and collateral ligaments, the anterior and posterior cuts were performed with a saw. The central two pins were removed and the posterior and anterior chamfers were cut next. The notch-cutting guide was placed. This was pinned to lateralize the femoral component as much as possible while keeping it flush on the cut surface. This was then pinned into position. A saw was used to make the notch cut. A rasp smoothed the cut surfaces. The medial and lateral menisci were removed. A trial femoral component was then inserted, impacted down to the cut surfaces, and the lug holes were drilled. A provisional trial tibial component was placed and the knee was brought through range of motion. There was noted to be excellent extension and flexion. There was no significant instability. The patella was tracking without thumbs. A size 8mm polyethylene component provided the best range of motion and stability with less than 2mm gapping with medial and lateral stress and full extension without significant hyperextension. The tibial cut surface was fully exposed. The tibia was then sized as a 7. The tibia had been previously marked during trialing to correspond to the center of the tibial component to help with rotation. The trial was aligned to this elizabeth, approximately rotated to the medial 1/3rd of the tibial tubercle. The trial was pinned into place. The tibia was prepared with a reamer and a keel punch and lug holes. The knee was then brought into extension and the patella was measured as 26mm. Using the patellar clamp and cut guide, this was resected to a flat surface with at least 13mm of thickness remaining. The size 38 patella fit the best. This was oriented and then clamped into position. The lugs were drilled. The trial components were removed. The final components were opened on the back table. The periosteal and capsular tissues, especially posteriorly, around the knee were then systematically injected with a periarticular cocktail consisting of 246mg of Ropivacaine, 0.5mg of Epinephrine, 0.08mg of Clonidine, and 30mg of Ketorolac, diluted to 100cc. On the back table, with the implants opened, the cement was mixed. One batch of high viscosity cement was prepared with vacuum assistance. After the cement was ready a small amount was placed on the cut surface of the patella and the patellar button was clamped into position and held. While the cement was hardening, the cementless knee components were placed. Starting with the tibial component, the tibia was subluxed anteriorly and the lug holes of the component were lined up. The tibia was then impacted with an impactor and mallet until the tibial component was in contact with the tibia. The final polyethylene component was inserted. Then, the femoral component was inserted. The lug holes were aligned and the component was impacted into position. The knee was irrigated with Surgiphor Betadine solution. This was allowed to sit in the knee for 3 minutes and then it was thoroughly irrigated out with saline. After the cement had finally cured, approximately 15min, the clamp was removed from the patella and the knee was taken through range of motion. The patella was tracking with a no-thumbs technique. The capsule was then reapproximated with a No. 1 Vicryl at multiple locations. The capsule was finally closed with a No. 2 Stratafix, barbed suture. Deep tissues were then reapproximated with 0 Vicryl and 2-0 Monocryl. The skin was closed with a running 3-0 Monocryl in a subcuticular fashion. This was reinforced with skin glue. A Mepilex silver dressing was applied along with a [id number] ANGELES wrap. A CryoCuff was applied. Nawaf was transferred to the hospital bed without difficulty an suffering no apparent complication. Nawaf has a good prognosis. Physical therapy will start today and without restrictions, weight-bearing as tolerated. Aspirin 81mg BID will be used for DVT prophylaxis.
== END 2023-01-16 13:31 | disposition home or self-care (01) ==
PROVIDERS: PCP Internal Medicine; Visit Provider Student in an Organized Health Care Education/Training Program
PROC: (CPT 27447; principal; 2023-01-16 07:30)
DX: M17.0 Bilateral primary osteoarthritis of knee; E78.5 Hyperlipidemia, unspecified; I10 Essential (primary) hypertension
CPT/HCPCS: 27447; 20985; 76942; 97162; 97530; J0690; J1040; J1100; J2405; J2704

== ENCOUNTER 2023-01-29 09:20 | Outpatient (CLI) | payer BC, SELFPAY ==
--- NOTE | 2023-01-29 08:00 | DI.RAD_ITS ---
Exam(s) XR KNEE RT 1V XR STANDING ALIGNMENT EXAM: XR STANDING ALIGNMENT CLINICAL HISTORY: 1ST POST OP R TKA. TECHNIQUE: 2D digital imaging was performed. Standing AP views were performed from the pelvis throu gh the ankles. COMPARISON: CR XR STANDING ALIGNMENT from 01/11/2023 CR XR KNEE RT 1V from 01/11/2023 CR XR KNEE RT 1V from 01/29/2023 FINDINGS: BONES: No acute fracture is present. No bony destructive lesion is seen. Leg length discrepancy: No significant overall leg length discrepancy. JOINTS: Knees: Right total knee prosthesis is unremarkable. moderate narrowing of the left medial fe moral tibial joint causing varus angulation.. The ankle joints are unremarkable. The hip joints are maintained, mild degenerative changes. Hips not well seen this air at the edge o f the film. SOFT TISSUE: Mild right lower extremity edema. IMPRESSION: Moderate degenerative changes medial femoral tibial joint space left knee. Unremarkable right total knee prosthesis.. No significant leg length discrepancy. DATA REPOSITORY: RADIATION DOSE DELIVERED:
== END 2023-01-29 09:21 | disposition home or self-care (01) ==
LOC: DIORS 09:20
PROVIDERS: PCP Internal Medicine; Referring Provider Internal Medicine; Visit Provider Physician Assistant
DX: Z96.651 Presence of right artificial knee joint (principal); Z47.1 Aftercare following joint replacement surgery; M25.862 Other specified joint disorders, left knee
CPT/HCPCS: 73560; 77073

== ENCOUNTER 2023-07-25 10:53 | Day surgery (SDC) | payer BC, SELFPAY ==
--- NOTE | 2023-07-25 09:49 | W.PM.DSUDISC ---
Date of service: 07/25/23 Time of Service: 09:49 Discharge Plan Disposition Patient Disposition: Home Condition: Good Discharge Details Reason For Visit: R knee arthroscopy Attending Provider: Juanjose Erickson Primary Care Provider: Deepika Reynaga Home Meds and New Rx's Prescriptions: New acetaminophen 500 mg tablet 1,000 mg PO TID Qty: 90 0RF hydrocodone-acetaminophen 5-325 mg tablet 1 tab PO Q6H PRN (Reason: pain) Qty: 6 0RF ibuprofen 600 mg tablet 600 mg PO TID PRN (Reason: pain) Qty: 90 0RF Continued lisinopril 10 mg tablet 10 mg PO DAILY atorvastatin 10 mg tablet 10 mg PO DAILY aspirin 81 mg tablet,delayed release (DR/EC) 81 mg PO DAILY Patient Comments: TAKE ONE TABLET BY MOUTH TWICE A DAY No Action ibuprofen [IBU] 600 mg tablet 600 mg PO ONCE Discharge Instructions Stand Alone Forms: Dre Knee Arthroscopy Equipment/Supplies: Partial Weight Bearing Crutches Activity:: Activity as Tolerated Remove Dressings/Wound Care:: 72 hours Shower/Bathe:: 72 hours Diet:: As Tolerated Discharge Orders Discharge Orders: Discharge Order (Routine); Ordered 07/25/23 Ordered By: Severiano Knight DS: Diagnosis Discharge Diagnosis (1) Painful total knee replacement, right: Status: Acute
[2023-07-25 11:23] VITALS: BP 176/96; PULSE 69; RESP 16; TEMP 36.1; O2SAT 98
--- NOTE | 2023-07-25 11:33 | ANES.PREOP_ITS ---
General Info Date of Service Date Performed: 07/25/23 Height: 5 ft 7 in Weight: 75.1 kg Body Mass Index (BMI): 25.9 Surgical Procedure: Operation Date: 07/25/23 12:25 Proposed Procedure Side Surgeon p Knee Arthroscopy Synovectomy Right Juanjose Erickson MD Meds Allergies and Home Medications Allergies Allergy/AdvReac Type Severity Reaction Status Date / Time No Known Allergies Allergy Verified 07/25/23 11:17 Home Medication Medication Instructions Recorded atorvastatin 10 mg tablet 10 mg PO DAILY 10/10/22 lisinopril 10 mg tablet 10 mg PO DAILY 10/10/22 aspirin 81 mg tablet,delayed 81 mg PO DAILY 07/24/23 release acetaminophen 500 mg tablet 1,000 mg (2 x 500 mg) PO TID #90 07/25/23 tabs hydrocodone 5 mg-acetaminophen 325 1 tab PO Q6H PRN pain #6 tabs 07/25/23 mg tablet ibuprofen 600 mg tablet 600 mg PO TID PRN pain #90 tabs 07/25/23 ibuprofen 600 mg tablet (IBU) 600 mg PO ONCE 07/25/23 Current Visit Medications: Current Medications Generic Name Dose Route Start Last Admin Trade Name Freq PRN Reason Stop Dose Admin Acetaminophen 1,000 mg 07/25/23 06:00 Acetaminophen 500 Mg Tab PO 08/24/23 05:59 PREOP ZANDRA Acetaminophen 650 mg 07/25/23 09:48 Acetaminophen 325 Mg Tab PO 08/24/23 09:47 Q4H PRN PRN Hydrocodone Bitart/Acetaminophen 0 tab 07/25/23 09:48 Hydrocodone 5/Acetaminophen 325 Tab PO 08/24/23 09:47 Q3H PRN PRN Pain Celecoxib 400 mg 07/25/23 06:00 Celecoxib 200 Mg Cap PO 08/24/23 05:59 PREOP ZANDRA Gabapentin 300 mg 07/25/23 06:00 Gabapentin 300 Mg Cap PO 08/24/23 05:59 PREOP ZANDRA Ringer's Solution 1,000 mls @ 80 mls/hr 07/25/23 06:00 IV 08/23/23 23:59 INFUSION [facility] Cefazolin Sodium/Dextrose 2 gm in 50 mls @ 100 mls/hr 07/25/23 06:00 Ancef Duplex IVPB 08/23/23 23:59 PREOP [facility] IV Miscellaneous Supplies 1 each 07/25/23 06:00 Iv Access IV 08/23/23 23:59 DIRECTED ZANDRA Sodium Chloride 0 ml 07/25/23 06:00 Normal Saline Flush 10 Ml Syr IV 08/23/23 23:59 PRN PRN Sodium Chloride 0 ml 07/25/23 06:00 Normal Saline 10 Ml Vial IJ 08/23/23 23:59 DIRECTED PRN Sterile Water 0 ml 07/25/23 06:00 Water,Injection,Sterile 10 Ml Vial IJ 08/23/23 23:59 DIRECTED PRN PFSH Active Problems Active Problems: Problem Status Onset Code Painful total knee replacement, right T84.84XA, Z96.651 Crepitus of joint of right knee M23.8X1 Iliotibial band syndrome, right leg M76.31 History of total right knee replacement 01/16/23 Z96.651 Arthritis of left knee M17.12 Carotid bruit R09.89 Hyperlipidemia E78.5 Hypertension I10 Medical History Medical History Hx of hyperlipidemia Hx of essential hypertension Eczema Medical History Comments:: Pt. reports he didnt feel great after his shoulder surgery Surgical History Surgical History History of total right knee replacement (TKR) Status post total replacement of right shoulder History of arthroscopy of right knee Hx of appendectomy Tobacco Smoking/Tobacco Use Status: Never Alcohol Alcohol Intake: current Alcohol intake frequency: a few times a week Alcohol type: beer Substance Use Substance use: Never Substance use type: does not use Details: alcohol: t-3, 3 beers Vital Signs and Lab Results Vital Signs Most Recent Vital Signs in EMR: Most Recent Vital Signs Temp Pulse Resp BP Pulse Ox 36.1 C L 69 16 176/96 H 98 07/25/23 11:23 07/25/23 11:23 07/25/23 11:23 07/25/23 11:23 07/25/23 11:23 Lab Results Blood Type / Crossmatch: No Data to Display Complete Blood Count: No Data to Display Complete Metabolic Panel: No Data to Display Liver Function Panel: No Data to Display Coagulation Panel: No Data to Display Cardiac Panel: No Data to Display Arterial Blood Gas: No Data to Display Venous Blood Gas: No Data to Display Pancreas Panel: No Data to Display Thyroid Panel: No Data to Display Infectious Disease: No Data to Display Blood Cultures: No Data to Display Toxicology Panel: No Data to Display Imaging and Studies Imaging and Studies Study information below may be from another EMR and interpreted by another provider. Please see original notes in EMR for more complete details. Carotid Artery Summary:: Patient Name: Venkatesh Lua AUnit #: [id number]: DI Ordering Provider: Juanjose Erickson M.D. : REG CLI Primary Care Provider: Cy Valle M.D.Date of Exam: 01/11/23Sex: M Admission Date: 01/11/23 : 1960 Age: 62 Exam(s) US CAROTID EXAM: US CAROTID CLINICAL HISTORY: preop R09.89 SYMPTOMS CIRCULATORY AND RESPIRATORY SYSTEMS, CAROTID BRUIT. TECHNIQUE: Ultrasound carotids performed using grayscale, color-flow, and spectral Doppler imaging. COMPARISON: No exams were available for comparison FINDINGS: CAROTID ARTERIES: On the left side there is noncalcified plaque in the distal left CCA-carotid b ulb. No elevated velocities at level but estimated at 50 percent stenosis. Higher velocities are noted in the proximal left external carotid artery registering at 250cm/sec, of questionable clinical significance. Velocities in the mid and upper left internal carotid artery in the neck are within normal limits. On the right side there is some noncalcified plaque at the carotid bulb and proximal right ICA both out significantly elevated velocities.. Amount of stenosis approximately 30 percent. No significantly elevated velocities in the proximal external carotid artery on this side. POSTERIOR CIRCULATION: Antegrade flow demonstrated in both vertebral arteries. VERTEBRAL ARTERIES: Antegrade flow. Measurements: R Bulb: 88.4cm/s PS / 27.8cm/s ED R CCA: 104.3cm/s PS / 28.1cm/s ED R ECA: 92cm/s PS / 18.1cm/s ED R ICA Prox: 83.8cm/s PS / 27.2cm/s ED R ICA Mid: 56.2cm/s PS / 19.5cm/s ED R ICA Distal: 90.5cm/s PS /34.2cm/s ED R Vert: 72.1cm/s PS / 25.6cm/s ED R SVR: 0.9 R DVR: 1.2 L Bulb: 86.9cm/s PS / 34cm/s ED L CCA: 81.9cm/s PS / 28.6cm/s ED L ECA: 250.5cm/s PS / 38.8cm/s ED L ICA Prox: 100.5cm/s PS / 29cm/s ED L ICA Mid: 88.4cm/s PS / 33.8cm/s ED L ICA Distal: 71.4cm/s PS / 29cm/s ED L Vert: 114.7cm/s PS / 34.8cm/s ED L SVR: 1.2 L DVR: 1 IMPRESSION: There is plaque bilaterally at the carotid bulbs and proximal internal carotid arteries. Lack of elevated velocities in these vessels indicate that the amount of stenosis is less than 50 percent bilaterally. Elevated velocity noted in the proximal left external carotid artery which is not clinically significant. Antegrade flow is demonstrated in both vertebral arteries. Criteria for Carotid Stenosis: Normal: ICA PSV <125 cm/s no plaque or intimal thickening is visible. <50% stenosis: ICA PSV <125 cm/s and plaque or intimal thickening is visible. 50-69% stenosis: ICA PSV is 125-250 cm/s and plaque is visible. >70% stenosis to near occlusion: ICA PSV >250 cm/s with visible plaque and luminal narrowing. Anesthesia Assessment and Plan Anesthesia History Personal History: No History of Anesthesia Complications Family History: No Family History of Anesthesia Complications Exercise Tolerance Exercise Tolerance: Metabolic Equivalents>4 Pertinent Negatives Pertinent Negatives: No Symptoms of GERD, No Major Cardiovascular Symptoms or Complaints and No Major Pulmonary Symptoms or Complaints Cardiac & Pulmonary Exam Cardiac Exam: Normal S1/S2 Heart Sounds Pulmonary Exam: Clear Bilateral Breath Sounds Implantable Cardiac Device Does patient have a Pacemaker or an ICD?: No Airway Exam Known Difficult Airway: No Mallampati Class: 3 Mouth Opening: Normal (> 3cm) Thyromental Distance: Greater than 3 cm Neck Range of Motion: Full ROM Neck Circumference: Normal Teeth Condition: Normal Dentition ASA Classification ASA Score: ASA 2 Emergency Case?: No NPO Status NPO Status: NPO Clears >2 hours, Solids >8 hours Anesthesia Plan Resuscitation Status: Full Code Anesthesia Technique: Spinal Anesthesia Airway Planned: Natural Airway Monitors Used: Standard Monitors
[2023-07-25] MEDS: Gabapentin 300 MG CAP PO (11:45)
[2023-07-25] MEDS: Celecoxib 200 MG CAP 400 MG PO (11:45)
[2023-07-25] MEDS: Acetaminophen 500 MG TAB 1000 MG PO (11:45)
--- NOTE | 2023-07-25 11:56 | W.PREOPHP ---
Assessment and Plan Assessment and plan (1) Painful total knee replacement, right: Status: Acute (2) Crepitus of joint of right knee: Status: Acute Assessment and plan: Nawaf is a 63-year-old who is status post right knee replacement with some ongoing pain, crepitus, and stiffness. To hopefully treat the symptoms I offered arthroscopic synovectomy. I reviewed this with him in the office once again today. I discussed the risks include bleeding, infection, pain, stiffness, continued symptoms, blood clot. Despite these risk, he elects to proceed. Anesthesia was made aware about the frequent PVCs. He is asymptomatic and has no concerning features. History of Present Illness History of Present Illness Chief Complaint: Pain after knee replacement with crepitus and stiffness, RIGHT knee Narrative: Nawaf is a 63-year-old active female who is status post right knee arthroplasty. He has done decently well. However continues to have a lateral based pain with some crepitus with prolonged activity. He has tried to manage this nonoperatively but continues to have this pain. Given his examination and his clinical history I am concerned about some impinging soft tissue, as well as an arthrofibrotic process. Therefore, I offered knee arthroscopic synovectomy. He is here today for that. He denies any new changes. Denies any chest pain or shortness of breath. He was noted to have frequent PVCs in the day surgery area but is asymptomatic. He is very active and walks many miles a day without any symptoms. Review of Systems All systems reviewed & are unremarkable except as noted in HPI and below PFSH All Active Problems Painful total knee replacement, right (Acute) Crepitus of joint of right knee (Acute) Iliotibial band syndrome, right leg (Acute) History of total right knee replacement (Acute 01/16/23) Arthritis of left knee (Acute) Steroid injection: 01/16/2023; 07/02/23 Carotid bruit (Acute) Hyperlipidemia (Acute) Hypertension (Chronic) Medical History Hx of hyperlipidemia Hx of essential hypertension Eczema Surgical History History of total right knee replacement (TKR) Status post total replacement of right shoulder History of arthroscopy of right knee Hx of appendectomy Social History Smoking/Tobacco Use Status: Never Smoking risk assessment performed?: Yes Alcohol Intake: current Alcohol Intake frequency: a few times a week Alcohol type: beer Drug use: Never Substance use type: does not use Details: alcohol: t-3, 3 beers Housing: house Do you feel safe at home: Yes Do you feel safe in your relationship?: Yes Meds Allergies and Home Medications Allergies Allergy/AdvReac Type Severity Reaction Status Date / Time No Known Allergies Allergy Verified 07/25/23 11:17 Home Medications Medication Instructions Recorded Confirmed Type atorvastatin 10 mg tablet 10 mg PO DAILY 10/10/22 07/25/23 History lisinopril 10 mg tablet 10 mg PO DAILY 10/10/22 07/25/23 History aspirin 81 mg tablet,delayed 81 mg PO DAILY 07/24/23 07/25/23 History release acetaminophen 500 mg tablet 1,000 mg (2 x 500 mg) PO TID #90 07/25/23 Rx tabs hydrocodone 5 mg-acetaminophen 325 1 tab PO Q6H PRN pain #6 tabs 07/25/23 Rx mg tablet ibuprofen 600 mg tablet 600 mg PO TID PRN pain #90 tabs 07/25/23 Rx ibuprofen 600 mg tablet (IBU) 600 mg PO ONCE 07/25/23 07/25/23 History Exam Resp Effort & Inspection: normal respiratory effort Cardio Rate: regular rate Rhythm: abnormal rhythm with ectopic beats (PVCs seen on monitor) Results Last Vital Signs Temp 36.1 C L 07/25/23 11:23 Pulse 69 07/25/23 11:23 Resp 16 07/25/23 11:23 BP 176/96 H 07/25/23 11:23 Pulse Ox 98 07/25/23 11:23
[2023-07-25] MEDS: Lactated Ringers 1,000 ML 80 ML IV (12:00)
--- NOTE | 2023-07-25 12:18 | NUR.NOTE ---
1130: in to see pt. 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 put on 3 lead. Pati Arnold CRNA to see pt, states pt. has PVCs and okay to proceed with getting pt. ready for procedure. in room for conversation. Nursing Note:
[2023-07-25 12:26] VITALS: BMI 25.9
[2023-07-25] MEDS: ceFAZolin 2 GM/50 ML BAG IVPB (12:56)
[2023-07-25] MEDS: Bupivacaine 0.5% Pres-Free 30 ML VIAL (13:47)
[2023-07-25] MEDS: EPINEPHrine 10 MG/10 ML ML (13:47)
[2023-07-25 13:56] VITALS: BP 135/80; PULSE 65; RESP 16; TEMP 36.4; O2SAT 100
--- NOTE | 2023-07-25 14:22 | W.ANESPOSTOP ---
Postoperative Evaluation Date, Time and Location Date Performed: 07/25/23 Time Performed: : Patient Location: Day Surgery Unit Vital Signs Most Recent Imported Vital Signs: Most Recent Vital Signs Temp Pulse Resp BP Pulse Ox 36.4 C L 65 16 135/80 100 07/25/23 13:56 07/25/23 13:56 07/25/23 13:56 07/25/23 13:56 07/25/23 13:56 Pain Score Most Recent Pain Score: Most Recent Pain Score Pain Level 0 07/25/23 13:56 Assessment Mental Status: Awake (Alert & Oriented to Patient Baseline) Airway and Respiratory Function: Patent airway with normal (patient baseline) respiratory exam Cardiovascular Function: Hemodynamically Stable Hydration Status: Adequately Hydrated Nausea & Vomiting: No Nausea or Vomiting Pain: Pt. Denies Any Pain Peripheral Nerve Block: Patient did not receive a nerve block
[2023-07-25 14:28] VITALS: BP 168/79; PULSE 64; RESP 18; TEMP 36.2; O2SAT 98
[2023-07-25 15:01] VITALS: BP 149/90; PULSE 78; RESP 18; TEMP 36; O2SAT 98
--- NOTE | 2023-07-25 15:15 | W.PM.OP ---
Date of service: 07/25/23 Time of Service: 13:00 Operative Note Operative Note DATE OF PROCEDURE: 07/25/23 PRE-OP DIAGNOSIS: Painful Right Knee Replacement with Crepitus POST-OP DIAGNOSIS: same (Extensive SYnovitis) PROCEDURE: Arthroscopic Synovectomy of 3 compartments - RIGHT KNEE SURGEON: Juanjose Erickson ANESTHESIA TYPE: Spinal Refer to Anesthesia Record ESTIMATED BLOOD LOSS: 5 PATHOLOGY: none sent TOURNIQUET TIME: 0 COMPLICATIONS: None Patient was transported to: PACU Patient's condition: stable Indications: I have seen Nawaf in clinic for symptoms of arthrofibrosis of the knee following knee replacement surgery. Nonoperative measures were exhausted but disability due to lack of motion persisted. I discussed knee arthroscopy with synovectomy with maniuplation with the patient. I reviewed the risks of the procedure to include, but not limited to, bleeding, infection, pain, continued stiffness, recurrence, blood clot. Despite these risks, the patient elected to proceed. Findings: There were some dense synovium and irregular fibrous tissue around the patella. Laterally, there was notable inflammatory changes in the soft tissues and associated with the popliteus tendon, some potentially impinging inbetween the femoral component and the poly. There was also a prominence of bone a the posterior edge of the lateral femoral component. Procedure Description: Nawaf was greeted in the preoperative holding area where the correct side was identified and marked. The consent was reviewed with the patient and signed. The history and physical was updated. All questions were answered. He was taken back to the operating room. A spinal anesthetic was administered. The patient was placed into the supine position on the operating room table. All bony prominences were well padded. Prophylactic antibiotics in the form of Cefazolin were administered. The right leg was then prepped with Chloraprep and draped in a standard fashion with stockinette and extremity drape. A timeout to confirm correct identity, side and site, procedure, allergies, anesthesia, and medical concerns was performed. The leg was placed into a pneumatic leg neri, SPIDER2. A standard lateral portal was made at the lateral border of the patella tendon in line with the inferior pole of the patella, soft spot. The skin and deep tissue was incised sharply and the blunt trochar was inserted atraumatically. At this point had visualization of the femoral component. A superolateral portal was then established with spinal needle localization just superior and lateral to the patella. A knife was taken down through the skin and soft tissue to enter the knee joint. Starting in the superior compartment above the femoral component and anterior to the femur I released all scarring between the anterior femoral synovium and the overlying extensor mechanism. This was taken through all of any noticeable scar tissue until the superior patellar pouch was fully released and mobile. This resection was carried out mostly with electrocautery as well as shaver. Once this was released fully from lateral to medial superiorly I then continue working down the lateral gutter. There was some thickened synovium around the lateral and distal aspecdt of the patella. This was resected. Additional scar tissue in the lateral gutter was released so there is normal space and movement between the capsular tissues and the edge of the femoral component and femur. This was taken down through the lateral gutter such that I was able to identify the polyethylene to its posterior corner. In this region there was notable fraying and some inflammatory changes. I utilized a shaver and electrocautery to resect and smooth this tissue. There was some frayed tissue which was interposed between the femur and polyethylene in flexion, this was also resected. Further visualization posterior also demonstrated piece of bony prominence at the posterior edge of the lateral femoral component with some projection into the articular space. This was resected and smoothed with a shaver. Once again, all scar tissue in this area was resected so the polyethylene was easily visible and there is no interposed tissue in the back or the polyethylene was identified. I then continued to work anteriorly, continuing the synovectomy through the anterior compartment to the medial compartment. Any remnant scar tissue from around the patella was then removed with a shaver and electrocautery. The arthroscope was brought back into the suprapatellar pouch and the leg was in full extension. The knee was thoroughly irrigated with the arthroscopic fluid on high flow and pressure. Inflow was stopped and excess fluid was removed. The wounds were closed with 4-0 Nylon. 0.25% bupivacaine was injected around the portal sites and into the knee. The wounds were dressed with Xeroform, 4x4 gauze, ABD pad, Kerlix and an ANGELES wrap. A cryo-cuff was applied. The patient tolerated the procedure well and was returned to the Same Day Surgery area in a stable condition suffering no known complication..
== END 2023-07-25 15:40 | disposition home or self-care (01) ==
PROVIDERS: PCP Family Medicine; Visit Provider Student in an Organized Health Care Education/Training Program
PROC: (CPT 29870; principal; 2023-07-25 12:15)
DX: T84.84XA Pain due to internal orthopedic prosthetic devices, implants and grafts, initial encounter (principal); Z96.651 Presence of right artificial knee joint; M23.8X1 Other internal derangements of right knee; I10 Essential (primary) hypertension
CPT/HCPCS: 29876; J0360; J0690; J1100; J1885; J2405

== ENCOUNTER 2023-07-27 22:20 | Outpatient (REF) | payer BC, SELFPAY ==
[2023-07-27 21:42] LABS: ALT 20 U/L (16-63); AST 19 U/L (15-37); Albumin 4.1 g/dL (3.4-5.0); Alkaline Phosphatase 62 U/L (46-116); Anion Gap 6.6 mmol/L (3-11); BUN 19 mg/dL (7-18); Bilirubin, Total 0.4 mg/dL (0.2-1.0); CO2 29.4 mmol/L (21.0-32.0); CREATININE 1.2 mg/dL (0.70-1.30); Calcium 9.1 mg/dL (8.5-10.1); Chloride 105 mmol/L (98-107); Estimated GFR 67.53 (mL/min/1.73m2); Glucose 106 mg/dL (74-106); Potassium 4.3 mmol/L (3.5-5.1); Sodium 141 mmol/L (136-145); Total Protein 7.4 g/dL (6.4-8.2)
== END 2023-07-27 22:21 | disposition home or self-care (01) ==
LOC: NCHCN 22:20
PROVIDERS: PCP Family Medicine; Visit Provider Family Medicine
DX: I10 Essential (primary) hypertension (principal)
CPT/HCPCS: 80053

== ENCOUNTER 2023-10-25 17:28 | Outpatient (REF) | payer BC, SELFPAY ==
[2023-10-25 22:58] LABS: HIV-1/2 Ag & Ab Screen Negative (Negative)
[2023-10-25 23:16] LABS: PSA, Screening 0.8 ng/mL (<=4.5)
[2023-10-25 23:58] LABS: Hepatitis C Ab w Rflx HCV PCR Negative (Negative)
== END 2023-10-25 17:29 | disposition home or self-care (01) ==
LOC: NCHCN 17:28
PROVIDERS: PCP Family Medicine; Referring Provider Family Medicine; Visit Provider Family Medicine
DX: Z00.00 Encounter for general adult medical examination without abnormal findings (principal); Z11.4 Encounter for screening for human immunodeficiency virus [HIV]; Z11.59 Encounter for screening for other viral diseases; Z12.5 Encounter for screening for malignant neoplasm of prostate
CPT/HCPCS: 84153; 86803; 87389

== ENCOUNTER → 2023-10-26 01:49 | Outpatient (CLI) | payer BC, SELFPAY ==
--- NOTE | 2023-10-26 | DI.RAD_ITS ---
Exam(s) XR HIP LT COMPLETE AP PELVIS EXAM: XR HIP LT COMPLETE AP PELVIS CLINICAL HISTORY: LT HIP PAIN, M25.552. TECHNIQUE: 2D digital imaging was performed. Two views. COMPARISON: No exams were available for comparison FINDINGS: BONES: No acute fracture is present. No bony destructive lesion is seen. JOINTS: No dislocation present. The right hip joint space is maintained. There is severe narrowing of the superior left hip joint space. There is some flattening of the superior femoral head. There is spurring at the acetabulum. Subchondral cysts of sclerosis are present. SOFT TISSUE: Normal. IMPRESSION: Severe degenerative changes of the left hip. DATA REPOSITORY: RADIATION DOSE DELIVERED:
== END ==
PROVIDERS: PCP Family Medicine; Visit Provider Family Medicine
DX: M16.12 Unilateral primary osteoarthritis, left hip (principal)
CPT/HCPCS: 73502

== ENCOUNTER 2023-11-05 15:37 | Outpatient (CLI) | payer BC, SELFPAY ==
--- NOTE | 2023-11-05 09:30 | DI.RAD_ITS ---
Exam(s) XR PELVIS AP EXAM: XR PELVIS AP CLINICAL HISTORY: preop eval of L hip and pelvis. TECHNIQUE: 2D digital imaging was performed.One images were obtained. COMPARISON: CR XR HIP LT COMPLETE AP PELVIS from 10/26/2023 FINDINGS: BONES: No acute fracture is present. No bony destructive lesion is seen. JOINTS: There is marked narrowing of the superior joint space of the left hip. Subchondral sclerosis and cysts are seen in the left hip. Osteophytes are seen at the lateral acetabulum. The right hip is well maintained. No joint space narrowing is present. SOFT TISSUE: Normal. IMPRESSION: Marked arthrosis of the left hip. DATA REPOSITORY: RADIATION DOSE DELIVERED:
== END 2023-11-05 15:38 | disposition home or self-care (01) ==
LOC: DIORS 15:37
PROVIDERS: PCP Family Medicine; Visit Provider Student in an Organized Health Care Education/Training Program
DX: M16.12 Unilateral primary osteoarthritis, left hip (principal)
CPT/HCPCS: 72170

== ENCOUNTER 2023-11-13 04:57 | Outpatient (CLI) | payer BC, SELFPAY ==
[2023-11-13 10:00] LABS: HCT 41.4 % (40.0-50.0); HGB 13.5 g/dL (13.5-17.5); MCH 30.5 pg (27.0-33.0); MCHC 32.6 % (32.0-36.0); MCV 94 fL (80-95); MPV 8.9 fL (8.0-11.0); Platelet Count 373 10^3/uL (130-400); RBC 4.43 10^6/uL (4.36-5.78); RDW 11.8 % (11.8-14.1); RDW-SD 40.5 fL; WBC 7.52 10^3/uL (4.4-10.8)
[2023-11-13 10:25] LABS: Anion Gap 8.5 mmol/L (3-11); BUN 22 mg/dL (7-18); CO2 29.5 mmol/L (21.0-32.0); Calcium 8.9 mg/dL (8.5-10.1); Chloride 107 mmol/L (98-107); Estimated GFR 84.05 (mL/min/1.73m2); Glucose 99 mg/dL (74-106); Potassium 4.2 mmol/L (3.5-5.1); Sodium 145 mmol/L (136-145)
== END 2023-11-13 04:58 | disposition home or self-care (01) ==
LOC: LBO 04:57
PROVIDERS: PCP Family Medicine; Visit Provider Student in an Organized Health Care Education/Training Program
DX: M16.12 Unilateral primary osteoarthritis, left hip (principal); Z01.818 Encounter for other preprocedural examination
CPT/HCPCS: 36415; 80048; 85027

== ENCOUNTER 2023-11-20 06:09 | Day surgery (SDC) | payer BC, SELFPAY ==
[2023-11-20] VITALS (8 sets, daily range): BP systolic 116–155; BP diastolic 75–93; PULSE 46–74; RESP 14–17; TEMP 36.2–36.6; O2SAT 95–99; BMI 26.4
[2023-11-20] MEDS: Lactated Ringers 1,000 ML 80 ML IV (06:37)
[2023-11-20] MEDS: Celecoxib 200 MG CAP 400 MG PO (06:39)
[2023-11-20] MEDS: Acetaminophen 500 MG TAB 1000 MG PO (06:39)
--- NOTE | 2023-11-20 07:14 | PDOC.DSDIS_ITS ---
Date of service: 11/20/23 Time of Service: 07:14 Discharge Plan Disposition Patient Disposition: Home Condition: Good Discharge Details Reason For Visit: L THR Attending Provider: Juanjose Erickson Primary Care Provider: Deepika Reynaga Home Meds and New Rx's Prescriptions: New aspirin 81 mg tablet,delayed release (DR/EC) 81 mg PO BID Qty: 60 0RF celecoxib 200 mg capsule 200 mg PO BID PRN (Reason: pain) Qty: 60 1RF pantoprazole 40 mg tablet,delayed release (DR/EC) 40 mg PO DAILY Qty: 30 0RF dexamethasone 4 mg tablet 4 mg PO DAILY Qty: 2 0RF Rx Instructions: Starting Post-Operative Day #1 (Day after surgery) oxycodone 5 mg tablet 5 mg PO Q6H PRN (Reason: pain) Qty: 12 0RF Continued atorvastatin 10 mg tablet 10 mg PO DAILY lisinopril 40 mg tablet 40 mg PO DAILY acetaminophen 500 mg tablet 1,000 mg PO TID Qty: 90 0RF Discontinued aspirin 81 mg tablet,delayed release (DR/EC) 81 mg PO DAILY Patient Comments: TAKE ONE TABLET BY MOUTH TWICE A DAY ibuprofen 600 mg tablet 600 mg PO TID PRN (Reason: pain) Qty: 90 0RF Discharge Instructions Additional Instructions: Total Hip Discharge Instructions Activity: The most important activity is to walk. You should try to take short walks a few times a day. You have no restrictions on movement or positioning, but do not try to force what you do. You will find some stiffness and weakness with hip flexion (lifting your knee). Do not try to strengthen this too early, continue to practice walking and stairs and this will come. - Outpatient physical therapy can be helpful to help return you to a normal gait and improve your flexibility and strength. This can start around 2 weeks. For some patients, it?s not necessary. Usually this is determined at the time of discharge or at the first post-operative visit. - You should wear the LEIDA hose on both legs for 2 weeks. Dressing: Keep the surgical dressing in place for at least one week. After the first week it may be removed and replace with light gauze and tape or nothing. It may get wet after 3 days but avoid soaking the dressing. If it gets wet, just lightly pat dry. It is important to always keep some gauze between skin folds, especially when you are sitting. Spend some time with the wound exposed when you are lying flat as the incision does wrinkle onto itself. Medications: - You should take Tylenol and an anti-inflammatory Celebrex as your primary pain control medications. If the Celebrex is too expensive or not covered, please call the office for another alternative (Advil/Ibuprofen or Naproxen/Aleve). - You have been prescribed a stronger pain medication Oxycodone for breakthrough pain, take as needed as prescribed. - You have also been prescribed a stomach acid reduction agent Pantoprozole to help reduce stomach acid and reflux. - You have also been prescribed Decadron to help with post-operative nausea and pain. You will take this for two days starting tomorrow. - You will be taking Aspirin 81mg twice a day for DVT prevention unless i nstructed otherwise. - If you have constipation you should take Colace or Miralax (both [id number]). It takes most people 3-4 days to have a bowel movement. Follow-up: 2 weeks If you have any acute concerns or questions, please do not hesitate to contact the office at [phone]. You may contact Dr. Erickson with any questions after hours through the hospital at [phone] or on his cell phone at [phone]. Referrals: Juanjose Erickson MD [ [facility] STAFF PHYSICIAN] - Equipment/Supplies: Walker Activity:: Activity as Tolerated Shower/Bathe:: 72 hours Diet:: As Tolerated Discharge Orders Discharge Orders: Discharge Order (Routine); Ordered 11/20/23 Ordered By: Juanjose Erickson DS: Diagnosis Discharge Diagnosis (1) Arthritis of left hip: Status: Acute
--- NOTE | 2023-11-20 07:33 | W.ANESPRE ---
General Info Date of Service Date Performed: 11/20/23 Height: 5 ft 7 in Weight: 76.7 kg Body Mass Index (BMI): 26.4 Surgical Procedure: Operation Date: 11/20/23 07:50 Proposed Procedure Side Surgeon p Hip Total Hip Anterior, ACTIS Left Juanjose Erickson MD Meds Allergies and Home Medications Allergies Allergy/AdvReac Type Severity Reaction Status Date / Time No Known Allergies Allergy Verified 11/20/23 06:13 Home Medication Medication Instructions Recorded atorvastatin 10 mg tablet 10 mg PO DAILY 10/10/22 lisinopril 40 mg tablet 40 mg PO DAILY 11/07/23 acetaminophen 500 mg tablet 1,000 mg (2 x 500 mg) PO TID #90 11/14/23 tabs aspirin 81 mg tablet,delayed 81 mg PO BID #60 tabs 11/14/23 release celecoxib 200 mg capsule 200 mg PO BID PRN pain #60 caps 11/14/23 dexamethasone 4 mg tablet 4 mg PO DAILY #2 tabs 11/14/23 oxycodone 5 mg tablet 5 mg PO Q6H PRN pain #12 tabs 11/14/23 pantoprazole 40 mg tablet,delayed 40 mg PO DAILY #30 tabs 11/14/23 release Current Visit Medications: Current Medications Generic Name Dose Route Start Last Admin Trade Name Freq PRN Reason Stop Dose Admin Acetaminophen 1,000 mg 11/20/23 06:00 11/20/23 06:39 Acetaminophen 500 Mg Tab PO 12/19/23 23:59 1,000 mg PREOP ZANDRA Administration Acetaminophen 1,000 mg 11/20/23 07:12 Acetaminophen 500 Mg Tab PO 12/20/23 08:29 TID PRN Analgesia Celecoxib 400 mg 11/20/23 06:00 11/20/23 06:39 Celecoxib 200 Mg Cap PO 12/19/23 23:59 400 mg PREOP ZANDRA Administration Docusate Sodium 100 mg 11/20/23 07:12 Docusate Sodium 100 Mg Cap PO 12/20/23 07:11 BID PRN PRN Constipation Ringer's Solution 1,000 mls @ 80 mls/hr 11/20/23 06:00 11/20/23 06:37 IV 12/19/23 23:59 80 mls/hr INFUSION ZANDRA Administration Cefazolin Sodium/Dextrose 2 gm in 50 mls @ 100 mls/hr 11/20/23 06:00 Ancef Duplex IVPB 12/19/23 23:59 PREOP ZANDRA Tranexamic Acid/Sodium Chloride 1,000 mg in 100 mls @ 600 mls/hr 11/20/23 06:00 IVPB 12/20/23 05:59 PREOP ZANDRA IV Miscellaneous Supplies 1 each 11/20/23 06:00 Iv Access IV 12/19/23 23:59 DIRECTED ZANDRA Ondansetron HCl 4 mg 11/20/23 07:12 Ondansetron 4 Mg/2 Ml Vial IVP 12/20/23 07:11 Q6H PRN PRN Nausea Oxycodone HCl 0 mg 11/20/23 07:12 Oxycodone 5 Mg Tab PO 12/20/23 07:11 Q3H PRN PRN Pain Polyethylene Glycol 17 gm 11/20/23 07:12 Polyethylene Glycol 3350 17 Gm Packet PO 12/20/23 07:11 BID PRN PRN Constipation Sodium Chloride 0 ml 11/20/23 06:00 Normal Saline Flush 10 Ml Syr IV 12/19/23 23:59 PRN PRN Sodium Chloride 0 ml 11/20/23 06:00 Normal Saline 10 Ml Vial IJ 12/19/23 23:59 DIRECTED PRN Sterile Water 0 ml 11/20/23 06:00 Water,Injection,Sterile 10 Ml Vial IJ 12/19/23 23:59 DIRECTED PRN PFSH Active Problems Active Problems: Problem Status Onset Code Arthritis of left hip M16.12 Painful total knee replacement, right T84.84XA, Z96.651 History of total right knee replacement 01/16/23 Z96.651 Arthritis of left knee M17.12 Carotid bruit R09.89 Hyperlipidemia E78.5 Hypertension I10 Medical History Medical History Hx of hyperlipidemia Hx of essential hypertension Eczema Surgical History Surgical History History of total right knee replacement (TKR) Status post total replacement of right shoulder History of arthroscopy of right knee Hx of appendectomy Tobacco Smoking/Tobacco Use Status: Never Alcohol Alcohol Intake: current Alcohol intake frequency: a few times a week Alcohol type: beer Substance Use Substance use: Never Substance use type: does not use Vital Signs and Lab Results Vital Signs Most Recent Vital Signs in EMR: Most Recent Vital Signs Temp Pulse Resp BP Pulse Ox 36.5 C 74 16 155/87 H 98 11/20/23 06:17 11/20/23 06:17 11/20/23 06:17 11/20/23 06:17 11/20/23 06:17 Lab Results Blood Type / Crossmatch: No Data to Display Complete Blood Count: White Blood Count 7.52 10^3/uL (4.4-10.8) 11/13/23 09:52 Red Blood Count 4.43 10^6/uL (4.36-5.78) 11/13/23 09:52 Hemoglobin 13.5 g/dL (13.5-17.5) 11/13/23 09:52 Hematocrit 41.4 % (40.0-50.0) 11/13/23 09:52 Platelet Count 373 10^3/uL (130-400) 11/13/23 09:52 Complete Metabolic Panel: Sodium 145 mmol/L (136-145) 11/13/23 09:52 Potassium 4.2 mmol/L (3.5-5.1) 11/13/23 09:52 Chloride 107 mmol/L (98-107) 11/13/23 09:52 Carbon Dioxide 29.5 mmol/L (21.0-32.0) 11/13/23 09:52 BUN 22 mg/dL (7-18) H 11/13/23 09:52 Creatinine 1.0 mg/dL (0.70-1.30) 11/13/23 09:52 Est GFR (CKD-EPI 2020) 84.05 (mL/min/1.73m2) 11/13/23 09:52 Calcium 8.9 mg/dL (8.5-10.1) 11/13/23 09:52 Glucose 99 mg/dL (74-106) 11/13/23 09:52 Liver Function Panel: No Data to Display Coagulation Panel: No Data to Display Cardiac Panel: No Data to Display Arterial Blood Gas: No Data to Display Venous Blood Gas: No Data to Display Pancreas Panel: No Data to Display Thyroid Panel: No Data to Display Infectious Disease: HIV (1&2) Ag and Ab, 4th Generation Negative (Negative) 10/25/23 09:20 Hepatitis C Antibody Negative (Negative) 10/25/23 09:20 Blood Cultures: No Data to Display Toxicology Panel: No Data to Display Imaging and Studies Imaging and Studies Study information below may be from another EMR and interpreted by another provider. Please see original notes in EMR for more complete details. Carotid Artery Summary:: Patient Name: Venkatesh Lua #: [id number]: DI Ordering Provider: Juanjose Erickson M.D. : REG CLI Primary Care Provider: Cy Valle M.D.Date of Exam: 01/11/23Sex: M Admission Date: 01/11/23 : 1960 Age: 62 Exam(s) US CAROTID EXAM: US CAROTID CLINICAL HISTORY: preop R09.89 SYMPTOMS CIRCULATORY AND RESPIRATORY SYSTEMS, CAROTID BRUIT. TECHNIQUE: Ultrasound carotids performed using grayscale, color-flow, and spectral Doppler imaging. COMPARISON: No exams were available for comparison FINDINGS: CAROTID ARTERIES: On the left side there is noncalcified plaque in the distal left CCA-carotid bulb. No elevated velocities at level but estimated at 50 percent stenosis. Higher velocities are noted in the proximal left external carotid artery registering at 250cm/sec, of questionable clinical significance. Velocities in the mid and upper left internal carotid artery in the neck are within normal limits. On the right side there is some noncalcified plaque at the carotid bulb and proximal right ICA both out significantly elevated velocities.. Amount of stenosis approximately 30 percent. No significantly elevated velocities in the proximal external carotid artery on this side. POSTERIOR CIRCULATION: Antegrade flow demonstrated in both vertebral arteries. VERTEBRAL ARTERIES: Antegrade flow. Measurements: R Bulb: 88.4cm/s PS / 27.8cm/s ED R CCA: 104.3cm/s PS / 28.1cm/s ED R ECA: 92cm/s PS / 18.1cm/s ED R ICA Prox: 83.8cm/s PS / 27.2cm/s ED R ICA Mid: 56.2cm/s PS / 19.5cm/s ED R ICA Distal: 90.5cm/s PS /34.2cm/s ED R Vert: 72.1cm/s PS / 25.6cm/s ED R SVR: 0.9 R DVR: 1.2 L Bulb: 86.9cm/s PS / 34cm/s ED L CCA: 81.9cm/s PS / 28.6cm/s ED L ECA: 250.5cm/s PS / 38.8cm/s ED L ICA Prox: 100.5cm/s PS / 29cm/s ED L ICA Mid: 88.4cm/s PS / 33.8cm/s ED L ICA Distal: 71.4cm/s PS / 29cm/s ED L Vert: 114.7cm/s PS / 34.8cm/s ED L SVR: 1.2 L DVR: 1 IMPRESSION: There is plaque bilaterally at the carotid bulbs and proximal internal carotid arteries. Lack of elevated velocities in these vessels indicate that the amount of stenosis is less than 50 percent bilaterally. Elevated velocity noted in the proximal left external carotid artery which is not clinically significant. Antegrade flow is demonstrated in both vertebral arteries. Criteria for Carotid Stenosis: Normal: ICA PSV <125 cm/s no plaque or intimal thickening is visible. <50% stenosis: ICA PSV <125 cm/s and plaque or intimal thickening is visible. 50-69% stenosis: ICA PSV is 125-250 cm/s and plaque is visible. >70% stenosis to near occlusion: ICA PSV >250 cm/s with visible plaque and luminal narrowing. Anesthesia Assessment and Plan Anesthesia History Personal History: No History of Anesthesia Complications Family History: No Family History of Anesthesia Complications Exercise Tolerance Exercise Tolerance: Metabolic Equivalents>4 Pertinent Negatives Pertinent Negatives: No Symptoms of GERD, No Major Cardiovascular Symptoms or Complaints, No Major Pulmonary Symptoms or Complaints and No History of CVA/TIA Cardiac & Pulmonary Exam Cardiac Exam: Normal S1/S2 Heart Sounds Pulmonary Exam: Clear Bilateral Breath Sounds Implantable Cardiac Device Does patient have a Pacemaker or an ICD?: No Airway Exam Known Difficult Airway: No Mallampati Class: 3 Mouth Opening: Normal (> 3cm) Thyromental Distance: Greater than 3 cm Neck Range of Motion: Full ROM Neck Circumference: Normal Teeth Condition: Normal Dentition ASA Classification ASA Score: ASA 2 Emergency Case?: No NPO Status NPO Status: NPO Clears >2 hours, Solids >8 hours Anesthesia Plan Resuscitation Status: Full Code Anesthesia Technique: Spinal Anesthesia Airway Planned: Natural Airway Monitors Used: Standard Monitors
[2023-11-20] MEDS: ceFAZolin 2 GM/50 ML BAG IVPB (07:39)
[2023-11-20] MEDS: TRANEXAMIC ACID/SOD. CHL. 1,000 MG/100 ML BAG 600 MG IVPB (07:48)
--- NOTE | 2023-11-20 08:55 | DI.RAD_ITS ---
Exam(s) XR HIP LT IN OR EXAM: XR HIP LT IN OR CLINICAL HISTORY: left hip arthritis. TECHNIQUE: 2D and realtime digital imaging was performed. COMPARISON: CR XR PELVIS AP from 11/05/2023 FINDINGS: Hard copy image shows placement of a left hip prosthesis. The alignment appears satisfactory. Please see procedure note for details. Fluoro time: 28.7seconds RADIATION DOSE DELIVERED: Ka,r=2.74 mGy
--- NOTE | 2023-11-20 10:12 | ROE_ITS ---
Date of service: 11/20/23 Time of Service: 07:40 Operative Note Operative Note DATE OF PROCEDURE: 11/20/23 PRE-OP DIAGNOSIS: Left Hip Osteoarthritis POST-OP DIAGNOSIS: same PROCEDURE: Left Anterior Total Hip Arthroplasty with Intraoperative Navigation SURGEON: Juanjose Erickson TYPE DISK QUALITY CONTROL SUPERVISOR: Severiano Knight ANESTHESIA TYPE: Spinal Refer to Anesthesia Record ESTIMATED BLOOD LOSS: 250 PATHOLOGY: none sent TOURNIQUET TIME: 0 COMPLICATIONS: None Patient was transported to: PACU Patient's condition: stable Implants: 1. Depuy [place] Acetabular Component, 56mm 2. Depuy Acetabular Liner, [id number] 3. Depuy Actis Standard Collared Femoral Stem, Size 4 4. Depuy Altrx Ceramic Femoral Head, Size 36+8.5mm Indications: I have seen Venkatesh in clinic for symptoms of hip arthritis, confirmed with radiographic findings. He has exhausted nonoperative methods and was having significant limitations in daily function and desired better function and less pain. I discussed the technical details of a hip replacement. I explained the risks of the procedure to include, but not limited to, bleeding, infection, pain, stiffness, fracture, damage to nerves and vessels, damage to muscles and tendons, loosening, instability, leg length inequality, need for repeat pro cedure, blood clot and cardiopulmonary demise. Despite these risks, Nawaf elected to proceed. Findings: There was significant signs of arthritis throughout the hip with a large effusion and global cartilage wear. Procedure Description: Nawaf was greeted in the preoperative holding area where the correct side was identified and marked. The consent was reviewed with the patient and signed. The history and physical was updated. All questions were answered. He was taken back to the operating room. A spinal anesthestic was then administered. The feet were wrapped with cast padding and Coban and then placed into the boot liners and then into the boots. Care was taken to protect the skin and make sure the heels were fully down and the boots were stable. The patient was then positioned onto the HANA table. Both legs were held in a neutral position. SCDs were applied. The patient was then slid down onto a peroneal post. Prophylactic antibiotics in the form of Cefazolin were administered. 1g of Tranxemic Acid was given intravenously within 30 minutes of incision. The left leg was then prepped with Chloraprep and draped in a standard fashion. A second prep with Chloraprep was performed prior to placement of a shower-curtain type drape with Iodine impregnated skin protection. A timeout to confirm correct identity, side and site, procedure, allergies, anesthesia, and medical concerns was performed. An obliquely oriented incision was made starting lateral to the ASIS and running distal over the Tensor Fascia Leida (TFL) muscle belly toward the fibular head, approximately 10cm. The skin and soft tissue was dissected sharply, through Dary?s fascia, and to the fascia of the TFL. With the fascia and superior border of the IT band identified, the fascia was incised with a new knife just above any perforators from the IT band. The TFL muscle belly was bluntly dissected away from the fascia and moved laterally. The fat between TFL and rectus was identified to ensure the dissection was not within the TFL. Blunt dissection created space between abductors and the capsule and retractor was placed over the lateral femoral neck. The fibers of the rectus femoris tendon were identified and these were freed from the anterior capsule. A second cobra retractor was placed around the medial femoral neck. The TFL was further retracted laterally to show the deep fascia. Careful dissection through this layer identified three main crossing vessels of the lateral femoral circumflex. These were cauterized in multiple locations and then cut without any noticeable bleeding. The TFL was further released bluntly from the deep fascia to expose anterior hip capsule and fat The Kali orthopaedic retractor was then placed beneath the TFL and against sartorius and medial soft tissues to protect and retract the soft tissues. A T-capsulotomy was then performed starting at the superior lateral acetabulum and moving distally to the intertrochanteric ridge. There was a large effusion which was evacuated. Then, the capsular flaps were tagged with a No. 1 Ethibond and elevated from within. The capsular flaps were released to the shoulder of the lateral neck and to the lesser trochanter to give excellent visualization of the proximal femur. A neck osteotomy was performed using an oscillating saw based on preoperative templates. This cut started in the shoulder and of the lateral neck and exited medially. The saw was at all times directed medially to avoid injury to the greater trochanter. Gross traction was applied to the leg and the osteotomy opened. The femoral head was removed with a corkscrew, making sure to protect the TFL on its exit. Traction was released after head removal. This was measured on the back table to determine the starting reamer size. Portions of the rectus obscuring visualization were minimally elevated off the superior a cetabulum. An anterior retractor was placed over the anterior wall between capsule and labrum and attached to the Gripper retraction system. The femur was rotated to 90 degrees and medial capsule was fully released until the lesser trochanter was palpable and visible; the femur was returned to 30 degrees. A posterior retractor was placed similarly between capsule and labrum. This provided excellent visualization. The contents of the cotyloid fossa were removed with electrocautery and the labrum was removed with a knife. There was a notable floor osteophyte. There was significant chondromalacia of the superior acetabulum. Acetabular reaming began with a 52mm reamer. This first reaming was directed anterior to posterior and medial to get down to the true floor. This was inspected and reamed until the true floor was reached. The anterior retractor was then released and entry and exit was provided by traction on the capsular flaps. I then reamed sequentially up to a 56mm reamer where good fit was obtained. The larger reamers were oriented based on anatomical reference of the anterior and lateral epstein to ensure proper abduction and anteversion. Positioning and size was confirmed with the fluoroscopy. A 56mm Depuy [place] acetabular component was selected. The acetabulum was reamed around the periphery with the selected acetabular size to prevent a rim fit. The deep tissues were irrigated. The acetabular component was then impacted in a position of about 40-45 degrees of abduction and 15-20 degrees of anteversion, using the patient?s anatomy as the ultimate landmark. Fluoroscopy was used to confirm this. There was excellent disposal worker of the acetabular component and the inserting handle was removed. The acetabular liner, Depuy [id number] polyethylene liner, was inserted and lined up with the tines of the acetabular component. There was no soft tissue interposition. The liner was then impacted into position and confirmed to be well-seated. A portion of the ta-articular cocktail was then injected around the acetabulum into the capsule and periosteum. This cocktail consisted of 123mg of Ropivacaine, 0.25mg of Epinephrine, 0.04mg of Clonidine, and 15mg of Ketorolac, diluted to 50cc. The leg was rotated to 120 degrees. Any remaining medial capsule was released until the lesser trochanter was easily palpable. A retractor was placed medially. The lateral capsule was further released into the shoulder to allow access to the greater trochanter. A Walters retractor was placed over the greater trochanter which allowed the trochanter to flip in front of the capsule for excellent exposure. The leg was brought down into maximal extension and 20 degrees of adduction while ensuring there was no impingement on the acetabulum. Any remnant capsule within the trochanter was released. Piriformis and obturator externis were identified and protected. There was excellent access to the proximal femur. The lateral neck remnant was removed with a rongeur. A blunt canal probe was used to identify the canal and trajectory for later broaching. A box osteotome initiated the broach course. A small curved rasp and a curved curette were used to work laterally. Broaching then began with a starter Actis broach. This was inserted manually around the trochanter and into the canal before mallet blows. The broach was seated to a few millimeters below the cut level based on the neck cut and the preoperative template. Sequential broaching was continued with the [employer] pneumatic broaching device until a tight fit was obtained with good rotational control of the femur. A trial high offset neck was inserted along with a +5 trial head. The leg was brought out of extension and adduction and then reduced with traction and internal rotation. The leg was stable anteriorly in a position of 30 degrees of extension and 90 degrees of external rotation. Fluoroscopy was used to ensure there was no fracture and the stem was seated well. Leg lengths were checked with an AP pelvis and pelvic reference points. [employer] navigation system was used to confirm appropriate positioning and leg length and offset. This over-corrected offset and undercorrected leg length, improved with a standard neck with +8.5 head. Once content with the desired offset and leg lengths, the leg was brought back into extension, external rotation and adducti on. The periosteum and surrounding tissue was injected with remaining portion of the ta-articular cocktail. The proximal femur was irrigated as well as the deep tissues. The GBSuy Actis standard collared stem, size 4, was then manually inserted into the proximal femur making sure to control rotation. It was then malleted into position with light blows, giving breaks to allow bone expansion and decrease risk of fracture. The selected Depuy Altrx Ceramic Head, size 36+8.5mm, was then placed onto the clean and dry trunnion and secured with impaction onto the tapered fit. The leg was brought back out of extension and adduction and reduced with traction and internal rotation. Stability was confirmed with no shuck at 90 degrees of external rotation and 30 degrees of extension. No impingement through range of motion arc. Final x-ray images were obtained with fluoroscopy to confirm adequate positioning and no intraoperative fracture. The deep tissues were thoroughly irrigated with Irrisept chlorhexadine solution. This was allowed to sit in the wound for 3 minutes before being thoroughly irrigated out with normal saline. The capsule was then reapproximated with the previously placed Ethibond sutures. The TFL fascia was finally closed with a No. 2 Stratafix, barbed suture. Deep tissues were then reapproximated with 0 Vicryl and a running 2-0 Vicryl. The skin was closed with a running 4-0 Monocryl in a subcuticular fashion. This was reinforced with skin glue. A Mepilex silver dressing was applied. At the end of the case, all counts were correct. Nawaf was transferred to the hospital bed without difficulty and suffering no apparent complication. Nawaf has a good prognosis. Physical therapy will start today and without restrictions, weight-bearing as tolerated. Aspirin 81mg BID will be used for DVT prophylaxis.
--- NOTE | 2023-11-20 10:40 | IN_ITS ---
PT Notes Visit Reasons: L THR Physical Therapy Day Surgery Initial Evaluation Date: 11/20/2023 Referring Doctor: SERGIO Rao PT Orders: PT CONSULT: S/P Ortho Surgery Precautions: WBAT on the L LE with AD. Patient Profile/Admitting Diagnosis: Venkatesh is a 63-year-old male with degenerative joint disease of the left hip and status post left anterior total hip arthroplasty on postoperative day 0. PMHX: All Active Problems (Updated 11/06/23 @ 05:23 by Juanjose Erickson MD) Arthritis of left hip (Acute) History of total right knee replacement (Acute 01/16/23) Arthritis of left knee (Acute) Steroid injection: 01/16/2023; 07/02/23Carotid bruit (Acute) Hyperlipidemia (Acute) Hypertension (Chronic) Medical History Hx of hyperlipidemia Hx of essential hypertension Eczema Surgical History History of total right knee replacement (TKR) Status post total replacement of right shoulder History of arthroscopy of right knee Hx of appendectomy Social History/Home Situation: Lives alone in a private home with 3 steps to enter with a rail on one side. Has a flight of steps to the basement and to the second floor of the house but will be gentle using the main floor as he recovers. Will have the help of his twin daughters for a few days. Equipment Owned/DME: [facility] Subjective: Minimal pain in the L hip throughout. Denied lightheadedness, chest pain, and headache throughout session. Objective: General Observation: Mepilex Ag over surgical incision. TDES to be legs. Mental Status: A and O x 4 Pain: As above ROM: Right Lower Extremity: Hip flexion WFL. Hip abduction WFL. Knee flexion WFL. Ankle dorsiflexion WFL. Ankle plantarflexion WFL. Left Lower Extremity: Hip flexion WFL. Hip abduction WFL. Knee flexion WFL. Ankle dorsiflexion WFL. Ankle plantarflexion WFL. Strength: Right Lower Extremity: Hip flexors 5/5. Hip abductors 5/5. Knee flexors 5/5. Knee extensors 5/5. Ankle dorsiflexors 5/5. Ankle plantarflexors 5/5. Left Lower Extremity:Hip flexors 4/5. Hip abductors 4/5. Knee flexors 5/5. Knee extensors 4/5. Ankle dorsiflexors 5/5. Ankle plantarflexors 5/5. Sensation: Intact as to pain and light pressure in BLE Bed Mobility/Transfers: Minimal cueing provided for use of B hands as needed for support, movement sequence, AD management, and posture to reduce fall risk and minimize pain report Supine to sit stand by assist Sit to stand stand by assist with FWW Stand to sit stand by assist Bed to chair stand by assist with FWW Gait: Facilitated safe and correct performance of level surface ambulation covering a distance of 150 feet using front wheeled walker with standby assist and minimal cues provided for posture, movement sequence, and walker management to reduce fall risk and minimize pain report. Stairs: Guided patient with safe and correct negotiation of 6 x 4 inch steps and and 4 x 6 inch steps while holding onto a rail and using a single-point cane with step to gait pattern and minimal verbal cueing for correct movement sequence, posture, and AD management to minimize fall and reduce pain report. Balance: Static Sitting: Normal Dynamic Sitting: Normal Static Standing: Fair Dynamic Standing: Fair Special Tests: Mobility Limitations Standardized Measure [facility] AM-PAC 6 clicks Basic Mobility Inpatient Short Form: Raw Score: 23 CMS Score: 11% deficit Informed Consent/Education: Patient instructed in purpose of PT consult. Packet containing SHEREEN exercise protocol has been given to patient. Education and training on initial set of exercises that can be done at home have been completed with patient. Trained patient with correct performance of exercises below to maximize motor control, joint flexibility, soft tissue extensibility of the L hip musculature to facilitate return to independent functional mobility performance. Access Code: [email or web address] URL: [email or web address] Date: 11/20/2023 Prepared by: Bell Gonzalez Exercises - Gluteal Sets - 1 x daily - 7 x weekly - 1 sets - 10 reps - 5 hold - Supine Heel Slide - 1 x daily - 7 x weekly - 1 sets - 10 reps - 5 hold - Supine Ankle Pumps - 1 x daily - 7 x weekly - 1 sets - 10 reps - 5 hold - Seated March - 1 x daily - 7 x weekly - 1 sets - 10 reps - 5 hold - Seated Long Arc Quad - 1 x daily - 7 x weekly - 1 sets - 10 reps - 5 hold Assessment: Patient requires use of front wheeled walker for all mobility ADL performance to maximize independence and reduce fall risk. Patient presents with clinical signs and symptoms consistent with current/admitting diagnoses that have resulted to mobility limitations, gait instability, generalized weakness, and impairment of motor control as demonstrated by the following impairment level findings: 1. Decreased strength to left hip major muscle groups 2. Impaired standing balance Impairments are contributing to the following functional limitations: 1. Inability to safely ambulate without assistive device 2. Increase completion time for mobility ADL performance 3. Increased fall risk Patient is assessed as a 89868 moderate complexity based on the following: History: 63-year-old male with impairment level findings, functional limitations, and past medical history as indicated above Examination: Demonstrable impairment in strength, balance, and mobility level with underlying impairments and functional limitations as documented above Presentation: Evolving Decision Makin moderate Goals: N/A. PT evaluation and 1-2 treatment sessions only for functional mobility training using recommended AD and for HEP instruction. Plan of Care/Treatment Plan: N/A. PT evaluation and 1-2 treatment session only for functional mobility training using recommended AD and for HEP instruction. DISCHARGE RECOMMENDATIONS: Home when medically cleared by orthopedic surgeon. Recommend outpatient PT services in order to optimize functional mobility outcomes and facilitate return to independent community ambulation without an assistive device. TREATMENT CODE/TIME: 9716 2 x 20 minutes for 1 unit, 9753 0 x 15 minutes for 1 unit (10:40?11:15). Thank you for the opportunity to participate in the care of this patient. Please sign an return this page within 30 days if you agree with the above POC. Thank you! Physician Signature Date [facility] Thank you for the opportunity to participate in the care of this patient. Bell Gonzalez PT, DPT, CLT [facility] [place], [place]
--- NOTE | 2023-11-20 11:18 | W.ANESPOSTOP ---
Postoperative Evaluation Date, Time and Location Date Performed: 11/20/23 Time Performed: 11:18 Patient Location: Day Surgery Unit Vital Signs Most Recent Imported Vital Signs: Most Recent Vital Signs Temp Pulse Resp BP Pulse Ox 36.2 C L 53 L 16 148/75 H 97 11/20/23 10:20 11/20/23 10:20 11/20/23 10:20 11/20/23 10:20 11/20/23 10:20 Pain Score Most Recent Pain Score: Most Recent Pain Score Pain Level 4 11/20/23 10:20 Assessment Mental Status: Awake (Alert & Oriented to Patient Baseline) Airway and Respiratory Function: Patent airway with normal (patient baseline) respiratory exam Cardiovascular Function: Hemodynamically Stable Hydration Status: Adequately Hydrated Nausea & Vomiting: No Nausea or Vomiting Pain: Pain is tolerable per patient Peripheral Nerve Block: Patient did not receive a nerve block Postoperative Comments:: Worked with PT, doing well.
== END 2023-11-20 11:40 | disposition home or self-care (01) ==
PROVIDERS: PCP Family Medicine; Visit Provider Student in an Organized Health Care Education/Training Program
PROC: (CPT 27130; principal; 2023-11-20 07:30)
DX: M16.12 Unilateral primary osteoarthritis, left hip (principal); I10 Essential (primary) hypertension; E78.5 Hyperlipidemia, unspecified; Z96.611 Presence of right artificial shoulder joint; Z96.651 Presence of right artificial knee joint
CPT/HCPCS: 27130; 20985; 97162; 97530; 73501; C1776; J0690; J2250; J2401; J2704; J3010

== ENCOUNTER 2023-12-03 10:46 | Outpatient (CLI) | payer BC, SELFPAY ==
--- NOTE | 2023-12-03 09:30 | DI.RAD_ITS ---
Exam(s) XR HIP LT COMPLETE AP PELVIS EXAM: XR HIP LT COMPLETE AP PELVIS CLINICAL HISTORY: 1ST POST OP L SHEREEN. TECHNIQUE: 2D digital imaging was performed. Two images were obtained. The pelvis and lateral hip v iews were obtained. COMPARISON: CR XR HIP LT COMPLETE AP PELVIS from 10/26/2023 CR XR PELVIS AP from 11/05/2023 XA XR HIP LT IN OR from 11/20/2023 FINDINGS: BONES: There are stable post operative changes of a left total hip replacement present. No fracture or dislocation. JOINTS: The orthopedic hardware is in good position. No evidence of hardware loosening. SOFT TISSUE: Vascular calcifications are present. IMPRESSION: Stable left total hip replacement. DATA REPOSITORY: RADIATION DOSE DELIVERED:
== END 2023-12-03 10:47 | disposition home or self-care (01) ==
LOC: DIORS 10:47
PROVIDERS: PCP Family Medicine; Referring Provider Family Medicine; Visit Provider Student in an Organized Health Care Education/Training Program
DX: Z96.642 Presence of left artificial hip joint (principal); Z47.1 Aftercare following joint replacement surgery
CPT/HCPCS: 73502

== ENCOUNTER 2024-01-14 11:17 | Outpatient (CLI) | payer BC, SELFPAY ==
--- NOTE | 2024-01-14 09:30 | DI.RAD_ITS ---
Exam(s) XR KNEE RT 2V AP,LAT EXAM: XR KNEE RT 2V AP,LAT CLINICAL HISTORY: ANNUAL F/U R TKA. TECHNIQUE: 2D digital imaging was performed. Two images were obtained. AP and lateral views were ob tained. COMPARISON: CR XR KNEE RT 3V AP,LAT,GERALDINE from 10/06/2022 CR XR KNEE RT 1V from 01/29/2023 FINDINGS: BONES: There are stable post operative changes of a right total knee replacement present. No fractur e or dislocation. JOINTS: The orthopedic hardware is in good position. No evidence of hardware loosening. SOFT TISSUE: Vascular calcifications are present. IMPRESSION: Stable right total knee replacement. DATA REPOSITORY: RADIATION DOSE DELIVERED:
== END 2024-01-14 11:18 | disposition home or self-care (01) ==
LOC: DIORS 11:17
PROVIDERS: PCP Family Medicine; Referring Provider Family Medicine; Visit Provider Student in an Organized Health Care Education/Training Program
DX: Z96.651 Presence of right artificial knee joint (principal); Z47.1 Aftercare following joint replacement surgery
CPT/HCPCS: 73560

== ENCOUNTER 2024-01-14 12:51 | Outpatient (REF) | payer BC, SELFPAY ==
[2024-01-14 14:04] LABS: Clarity Clear; Mononuclear Cells 85 %; Nucleated Cells 737 uL (0); Polynuclear Cells 15 %
== END 2024-01-14 12:52 | disposition home or self-care (01) ==
LOC: LBN 12:51
PROVIDERS: PCP Family Medicine; Visit Provider Student in an Organized Health Care Education/Training Program
DX: T84.84XA Pain due to internal orthopedic prosthetic devices, implants and grafts, initial encounter (principal); Z96.651 Presence of right artificial knee joint; X58.XXXA Exposure to other specified factors, initial encounter
CPT/HCPCS: 87070; 87205; 89051

== ENCOUNTER 2024-05-23 08:26 | Day surgery (SDC) | payer BC, SELFPAY ==
--- NOTE | 2024-05-22 11:35 | W.PM.DSUDISC ---
Date of service: 05/23/24 Time of Service: 11:05 Discharge Plan Disposition Patient Disposition: Home Condition: Good Discharge Details Reason For Visit: screening colonoscopy Attending Provider: Jonas Luciano Primary Care Provider: Deepika Reynaga Home Meds and New Rx's Prescriptions: Continued aspirin 81 mg tablet,delayed release (DR/EC) 81 mg PO DAILY atorvastatin 10 mg tablet 10 mg PO DAILY lisinopril 40 mg tablet 40 mg PO DAILY acetaminophen 500 mg tablet 1,000 mg PO TID Qty: 90 0RF Patient Comments: Per patient no longer taking. Discontinued bisacodyl [Dulcolax (bisacodyl)] 5 mg tablet,delayed release (DR/EC) 5 mg PO ONCE Qty: 4 0RF Rx Instructions: Take per colonoscopy instructions provided by ordering providers office polyethylene glycol 3350 17 gram/dose powder 17 g PO ONCE Qty: 238 0RF Rx Instructions: Take per colonoscopy instructions provided by ordering providers office Discharge Instructions Additional Instructions: Venkatesh, we were able to complete your colonoscopy today without any issues. Everything went very smoothly, and I hope you are comfortable. The colonoscopy was negative. Did not see any signs of tumors, polyps, or any other worrisome pathology. I recommend repeating colonoscopy in 10 years to reduce the likelihood of dying from colon cancer over the course of your lifetime. 1. If tolerated, consume a soft, low fiber diet for 1-2 days. 2. Do not drive, drink alcohol, operate machinery, make critical decisions, or do activities that require coordination or balance for 24 hours. 3. Because air was put into your colon during the procedure, expelling air from your rectum (passing gas or farting) is normal. 4. You may not have a bowel movement for 1-3 days because of the colonoscopy prep. This is normal. 5. Go directly to the emergency room if you notice any of the following: Develop chills (warm to touch), or if you have a thermometer and your temperature is above 101 Difficulty breathing or difficultly swallowing Persistent vomiting Severe abdominal pain, other than gas cramps Severe chest pain Black, tarry stools Any bleeding ? exceeding one tablespoon 6. Call your physician if the site where your intravenous was started becomes red, swollen, painful, and warm to touch. 7. Your physician has reviewed your pre-procedure medications. Please continue to take those medications as previously ordered. You will be given specific information/education regarding any changes to your medications before leaving. Activity:: Activity as Tolerated Diet:: As Tolerated Discharge Orders Discharge Orders: Discharge Order (Routine); Ordered 05/22/24 Ordered By: Jonas Luciano DS: Diagnosis Discharge Diagnosis (1) Encounter for screening colonoscopy: Status: Acute Asessment and Plan: Negative screening colonoscopy
--- NOTE | 2024-05-22 11:36 | W.COLOREPORT ---
Date of service: 05/23/24 Time of Service: 11:06 Colonoscopy Report Date of procedure: 05/23/24 Pre-op diagnosis general: screening colonoscopy Post-op diagnosis procedure note: other (Negative screening colonoscopy) Procedure: colonoscopy Surgeon: Jonas Luciano Anesthesia Type: General:No Airway Estimated blood loss (mL): 0 Pathology: none sent Complications: None Disposition: same day Indications: Venkatesh is a 64 year old man who needs his first screening colonoscopy Prep: Miralax/Dulcolax Procedure Start Time: 10:25 Procedure End Time: 10:51 Retraction Time: 10 Findings: Normal colonoscopy Procedure Description: After the induction of anesthesia, and with the patient in left lateral decubitus position, I began by performing an external anorectal exam.? Perineum and skin were normal, as was the anal verge.? There was no evidence of external hemorrhoids.? Next, I performed a digital rectal exam.? I did not appreciate any abnormal findings.? Next, I advanced a colonoscope into the rectal vault.? I performed retroflexion.? This appeared normal.? Using insufflation, I then advanced the colonoscope beyond the rectal folds and into the sigmoid colon before advancing towards the cecum.?The scope was noted to be in the cecum by identification of the ileocecal valve and appendiceal orifice.? I then began withdrawing the colonoscope using repeated irrigation as necessary for full evaluation of the colonic mucosa. ?Once the scope was withdrawn to the level of the rectum, great care was taken to examine portions of the rectal folds.? Finally, the scope was withdrawn and the patient was brought to the same-day surgery recovery unit as the anesthetic wore off. I did not see any signs of tumors, polyps, or any other abnormalities. ?The findings and instructions were shared with the patient prior to discharge. [place] Bowel Prep [place] Bowel Prep Right Colon: 3 Left Colon: 3 Transverse Colon: 3 Total Score: 9
[2024-05-23 08:45] VITALS: BP 164/105; PULSE 64; RESP 16; TEMP 36.7; O2SAT 97
[2024-05-23] MEDS: Lactated Ringers 1,000 ML 80 ML IV (09:03)
--- NOTE | 2024-05-23 10:12 | W.ANESPRE ---
General Info Date of Service Date Performed: 05/23/24 Height: 5 ft 7 in Weight: 71.4 kg Body Mass Index (BMI): 24.6 Surgical Procedure: Operation Date: 05/23/24 09:50 Proposed Procedure Side Surgeon jelani Luciano MD Meds Allergies and Home Medications Allergies Allergy/AdvReac Type Severity Reaction Status Date / Time No Known Allergies Allergy Verified 05/23/24 08:38 Home Medication ?Medication ?Instructions ?Recorded atorvastatin 10 mg tablet 10 mg PO DAILY 10/10/22 lisinopril 40 mg tablet 40 mg PO DAILY 11/07/23 acetaminophen 500 mg tablet 1,000 mg (2 x 500 mg) PO TID #90 11/14/23 tabs aspirin 81 mg tablet,delayed 81 mg PO DAILY 05/09/24 release Current Visit Medications: Current Medications Generic Name Dose Route Start Last Admin Trade Name Freq PRN Reason Stop Dose Admin Hyoscyamine Sulfate 0.125 mg 05/22/24 11:37 Hyoscyamine 0.125 Mg Sl/Oral/Chew SL 06/21/24 11:36 DIRECTED PRN Ringer's Solution 1,000 mls @ 80 mls/hr 05/23/24 06:00 05/23/24 09:03 IV 05/23/24 23:59 80 mls/hr INFUSION ZANDRA Administration IV Miscellaneous Supplies 1 each 05/23/24 06:00 Iv Access IV 05/23/24 23:59 DIRECTED ZANDRA Ondansetron HCl 4 mg 05/22/24 11:37 Ondansetron 4 Mg/2 Ml Vial IVP 06/21/24 11:36 Q4H PRN PRN Nausea / Vomiting Sodium Chloride 0 ml 05/23/24 06:00 Normal Saline Flush 10 Ml Syr IV 05/23/24 23:59 PRN PRN Sodium Chloride 0 ml 05/23/24 06:00 Normal Saline 10 Ml Vial IJ 05/23/24 23:59 DIRECTED PRN Sterile Water 0 ml 05/23/24 06:00 Water,Injection,Sterile 10 Ml Vial IJ 05/23/24 23:59 DIRECTED PRN PFSH Active Problems Active Problems: Problem Status Onset Code Encounter for screening colonoscopy Acute Z12.11 Surgical wound breakdown Acute T81.31XA History of total left hip arthroplasty Acute ~11/20/23 Z96.642 Painful total knee replacement, right Resolved T84.84XA, Z96.651 History of total right knee replacement Acute 01/16/23 Z96.651 Arthritis of left knee Acute M17.12 Carotid bruit Acute R09.89 Hyperlipidemia Acute E78.5 Hypertension Chronic I10 Medical History Medical History Hx of hyperlipidemia Hx of essential hypertension Eczema Surgical History Surgical History History of left hip replacement History of total right knee replacement (TKR) Status post total replacement of right shoulder History of arthroscopy of right knee Hx of appendectomy Tobacco Smoking/Tobacco Use Status: Never Alcohol Alcohol Intake: current Alcohol intake frequency: a few times a week Alcohol type: beer Substance Use Substance use: Never Substance use type: does not use Vital Signs and Lab Results Vital Signs Most Recent Vital Signs in EMR: Most Recent Vital Signs Temp Pulse Resp BP Pulse Ox 36.7 C 64 16 164/105 H 97 05/23/24 08:45 05/23/24 08:45 05/23/24 08:45 05/23/24 08:45 05/23/24 08:45 Lab Results Blood Type / Crossmatch: No Data to Display Complete Blood Count: No Data to Display Complete Metabolic Panel: No Data to Display Liver Function Panel: No Data to Display Coagulation Panel: No Data to Display Cardiac Panel: No Data to Display Arterial Blood Gas: No Data to Display Venous Blood Gas: No Data to Display Pancreas Panel: No Data to Display Thyroid Panel: No Data to Display Infectious Disease: No Data to Display Blood Cultures: No Data to Display Toxicology Panel: No Data to Display Imaging and Studies Imaging and Studies Study information below may be from another EMR and interpreted by another provider. Please see original notes in EMR for more complete details. Carotid Artery Summary:: Patient Name: Venkatesh Lua #: [id number]: SILVER Ordering Provider: Juanjose Erickson M.D. : REG I Primary Care Provider: Cy Valle M.D.Date of Exam: 01/11/23Sex: M Admission Date: 01/11/23 : 1960 Age: 62 Exam(s) US CAROTID EXAM: US CAROTID CLINICAL HISTORY: preop R09.89 SYMPTOMS CIRCULATORY AND RESPIRATORY SYSTEMS, CAROTID BRUIT. TECHNIQUE: Ultrasound carotids performed using grayscale, color-flow, and spectral Doppler imaging. COMPARISON: No exams were available for comparison FINDINGS: CAROTID ARTERIES: On the left side there is noncalcified plaque in the distal left CCA-carotid bulb. No elevated velocities at level but estimated at 50 percent stenosis. Higher velocities are noted in the proximal left external carotid artery registering at 250cm/sec, of questionable clinical significance. Velocities in the mid and upper left internal carotid artery in the neck are within normal limits. On the right side there is some noncalcified plaque at the carotid bulb and proximal right ICA both out significantly elevated velocities.. Amount of stenosis approximately 30 percent. No significantly elevated velocities in the proximal external carotid artery on this side. POSTERIOR CIRCULATION: Antegrade flow demonstrated in both vertebral arteries. VERTEBRAL ARTERIES: Antegrade flow. Measurements: R Bulb: 88.4cm/s PS / 27.8cm/s ED R CCA: 104.3cm/s PS / 28.1cm/s ED R ECA: 92cm/s PS / 18.1cm/s ED R ICA Prox: 83.8cm/s PS / 27.2cm/s ED R ICA Mid: 56.2cm/s PS / 19.5cm/s ED R ICA Distal: 90.5cm/s PS /34.2cm/s ED R Vert: 72.1cm/s PS / 25.6cm/s ED R SVR: 0.9 R DVR: 1.2 L Bulb: 86.9cm/s PS / 34cm/s ED L CCA: 81.9cm/s PS / 28.6cm/s ED L ECA: 250.5cm/s PS / 38.8cm/s ED L ICA Prox: 100.5cm/s PS / 29cm/s ED L ICA Mid: 88.4cm/s PS / 33.8cm/s ED L ICA Distal: 71.4cm/s PS / 29cm/s ED L Vert: 114.7cm/s PS / 34.8cm/s ED L SVR: 1.2 L DVR: 1 IMPRESSION: There is plaque bilaterally at the carotid bulbs and proximal internal carotid arteries. Lack of elevated velocities in these vessels indicate that the amount of stenosis is less than 50 percent bilaterally. Elevated velocity noted in the proximal left external carotid artery which is not clinically significant. Antegrade flow is demonstrated in both vertebral arteries. Criteria for Carotid Stenosis: Normal: ICA PSV <125 cm/s no plaque or intimal thickening is visible. <50% stenosis: ICA PSV <125 cm/s and plaque or intimal thickening is visible. 50-69% stenosis: ICA PSV is 125-250 cm/s and plaque is visible. >70% stenosis to near occlusion: ICA PSV >250 cm/s with visible plaque and luminal narrowing. Anesthesia Assessment and Plan Anesthesia History Personal History: No History of Anesthesia Complications Family History: No Family History of Anesthesia Complications Exercise Tolerance Exercise Tolerance: Metabolic Equivalents>4 Pertinent Negatives Pertinent Negatives: No Symptoms of GERD Cardiac & Pulmonary Exam Cardiac Exam: Normal S1/S2 Heart Sounds Pulmonary Exam: Clear Bilateral Breath Sounds Implantable Cardiac Device Does patient have a Pacemaker or an ICD?: No Airway Exam Known Difficult Airway: No Mallampati Class: 2 Mouth Opening: Normal (> 3cm) Thyromental Distance: Greater than 3 cm Neck Range of Motion: Full ROM Neck Circumference: Normal Teeth Condition: Normal Dentition ASA Classification ASA Score: ASA 2 Emergency Case?: No NPO Status NPO Status: NPO Clears >2 hours, Solids >8 hours Anesthesia Plan Resuscitation Status: Full Code Anesthesia Technique: General Anesthesia Airway Planned: Natural Airway Monitors Used: Standard Monitors
[2024-05-23 10:13] VITALS: BMI 24.6
[2024-05-23 10:56] VITALS: BP 132/80; PULSE 70; RESP 16; TEMP 36.3; O2SAT 99
--- NOTE | 2024-05-23 11:05 | W.ANESPOSTOP ---
Postoperative Evaluation Date, Time and Location Date Performed: 05/23/24 Time Performed: 11:06 Patient Location: Day Surgery Unit Vital Signs Most Recent Imported Vital Signs: Most Recent Vital Signs Temp Pulse Resp BP Pulse Ox 36.3 C L 70 16 132/80 99 05/23/24 10:56 05/23/24 10:56 05/23/24 10:56 05/23/24 10:56 05/23/24 10:56 Pain Score Most Recent Pain Score: Most Recent Pain Score Pain Level 0 05/23/24 10:56 Assessment Mental Status: Awake (Alert & Oriented to Patient Baseline) Airway and Respiratory Function: Patent airway with normal (patient baseline) respiratory exam Cardiovascular Function: Hemodynamically Stable Hydration Status: Adequately Hydrated Nausea & Vomiting: No Nausea or Vomiting Pain: Pt. Denies Any Pain Peripheral Nerve Block: Patient did not receive a nerve block
[2024-05-23 11:22] VITALS: BP 156/100; PULSE 60; RESP 16; TEMP 36.4; O2SAT 100
== END 2024-05-23 11:29 | disposition home or self-care (01) ==
LOC: SUR 08:29
PROVIDERS: PCP Family Medicine; Visit Provider Surgery
PROC: 0DJD8ZZ Inspection of Lower Intestinal Tract, Via Natural or Artificial Opening Endoscopic (ICD-10-PCS; CPT 45378; principal; 2024-05-23 09:45)
DX: Z12.11 Encounter for screening for malignant neoplasm of colon (principal); I10 Essential (primary) hypertension
CPT/HCPCS: 45378; J2003; J2704

== ENCOUNTER 2024-07-31 15:24 | Outpatient (CLI) | payer BC, SELFPAY ==
--- NOTE | 2024-07-31 09:00 | DI.RAD_ITS ---
Exam(s) XR HIP RT AP LAT ONLY EXAM: XR HIP RT AP LAT ONLY CLINICAL HISTORY: eval R hip pain. TECHNIQUE: 2D digital imaging was performed of the right hip. Two images were obtained. AP and late ral views were obtained. COMPARISON: CR XR HIP LT COMPLETE AP PELVIS from 12/03/2023 FINDINGS: BONES: No acute fracture is present. No bony destructive lesion is seen. There is a small protrusion at the junction of the head and neck of the right femur on the lateral view which can be seen with fe moral acetabular impingement. JOINTS: No dislocation present. The right hip is well maintained. SOFT TISSUE: Atherosclerotic calcification is present. IMPRESSION: Small protuberance at the junction of the right femoral head and neck which can be seen with femoral acetabular impingement. DATA REPOSITORY: RADIATION DOSE DELIVERED:
--- NOTE | 2024-07-31 09:00 | DI.RAD_ITS ---
Exam(s) XR KNEE RT 3V AP,LAT,GERALDINE EXAM: XR KNEE RT 3V AP,LAT,GERALDINE CLINICAL HISTORY: r TKA pain. TECHNIQUE: 2D digital imaging was performed. Three images were obtained. Merchant's, AP and lateral views were obtained. COMPARISON: CR XR STANDING ALIGNMENT from 01/29/2023 CR XR KNEE RT 1V from 01/29/2023 CR XR KNEE RT 2V AP,LAT from 01/14/2024 FINDINGS: BONES: There are stable post operative changes of a right total knee arthroplasty present. There is lucency seen at the lateral aspect of the tibial component in the anterior aspect of the tibial compo nent which appears unchanged compared to the prior examinations. No fracture or dislocation. JOINTS: The orthopedic hardware is in good position. No evidence of hardware loosening. SOFT TISSUE: Atherosclerotic calcification is present. IMPRESSION: Stable appearance of the right total knee arthroplasty.. DATA REPOSITORY: RADIATION DOSE DELIVERED:
== END 2024-07-31 15:25 | disposition home or self-care (01) ==
LOC: DIORS 15:25
PROVIDERS: PCP Family Medicine; Visit Provider Student in an Organized Health Care Education/Training Program
DX: M25.551 Pain in right hip (principal); M25.561 Pain in right knee
CPT/HCPCS: 73562; 73502

== ENCOUNTER 2024-07-31 17:01 | Outpatient (REF) | payer BC, SELFPAY ==
[2024-07-31 14:56] LABS: Clarity Clear; Mononuclear Cells 76 %; Nucleated Cells 408 uL (0); Polynuclear Cells 24 %
== END 2024-07-31 17:02 | disposition home or self-care (01) ==
LOC: LBN 17:01
PROVIDERS: PCP Family Medicine; Visit Provider Student in an Organized Health Care Education/Training Program
DX: T84.84XA Pain due to internal orthopedic prosthetic devices, implants and grafts, initial encounter (principal); Z96.651 Presence of right artificial knee joint
CPT/HCPCS: 87077; 87070; 87186; 87205; 89051

== ENCOUNTER 2024-11-11 10:23 | Day surgery (SDC) | payer OTHER, SELFPAY ==
[2024-11-11] VITALS (17 sets, daily range): BP systolic 152–187; BP diastolic 89–106; PULSE 56–77; RESP 11–25; TEMP 36.2–36.9; O2SAT 96–100; BMI 23.0
--- NOTE | 2024-11-11 10:39 | HPE_ITS ---
Assessment and Plan Assessment and plan (1) Painful total knee replacement, right: Status: Resolved Assessment and plan: Nawaf is an active 64-year-old who continues to have some instability, stiffness, swelling about his right knee after knee replacement. Please see the previous office note as well as a second opinion at [facility]. At this point he still feels that he should be out of function better. Given the mismatch in stability testing of the knee I do think the femur needs to be revised. The tibia and the femur look to be well-fixed and I do not think need to be revised for loosening nor does he have any start of pain. However, I will test both. The technical plan would be to remove the femur, perform a complete synovectomy, likely perform a lateral facetectomy of the patella based on its appearance intraoperatively. I would then revise the femur with the intention of moving it slightly distal and increasing femoral size if necessary of the likely keeping the same and using a more stabilized polyethylene. I reviewed the technical details. I reviewed the risk to include bleeding, infection, pain, stiffness, damage nerves and vessels, damage to muscle and tendons, fracture, loosening, continued symptoms, continued swelling, need for repeat procedures. Despite these risk, he elects to proceed. History of Present Illness Narrative: Nawaf is a 64-year-old male who underwent right knee replacement. Unfortunately has had some continued swelling and subjective instability and restricted motion. He has had manipulation and synovectomy which has helped out with his range of motion and the swelling but unfortunate all returned. Please see the previous office note for complete detailed history. He continues to be limited by the knee. He is here today for synovectomy with likely revision of the femoral component as well as lateral facetectomy of the patella. If necessary, a complete revision will be performed at the tibia looks be well-fixed. The femur will be revised to allow manipulation of the flexion and extension gap. He denies any recent medical changes. No recent illness. No chest pain or shortness of breath. Review of Systems All systems reviewed & are unremarkable except as noted in HPI and below PFSH All Active Problems Femoroacetabular impingement of right hip (Acute) Encounter for screening colonoscopy (Acute) Surgical wound breakdown (Acute) History of total left hip arthroplasty (Acute ~11/20/23) History of total right knee replacement (Acute 01/16/23) Arthritis of left knee (Acute) Steroid injection: 01/16/2023; 07/02/23 Carotid bruit (Acute) Hyperlipidemia (Acute) Hypertension (Chronic) Medical History Hx of hyperlipidemia Hx of essential hypertension Eczema Surgical History History of colonoscopy (~05/2024) History of left hip replacement 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 Meds Allergies and Home Medications Allergies Allergy/AdvReac Type Severity Reaction Status Date / Time No Known Allergies Allergy Verified 11/10/24 13:49 Home Medications ?Medication ?Instructions ?Recorded ?Confirmed ?Type atorvastatin 10 mg tablet 10 mg PO DAILY 10/10/22 11/10/24 History lisinopril 40 mg tablet 40 mg PO DAILY 11/07/23 11/10/24 History aspirin 81 mg tablet,delayed 81 mg PO DAILY 05/09/24 11/10/24 History release Exam Const General: cooperative, healthy appearing, comfortable and no acute distress Resp Auscultation: clear to auscultation bilaterally Cardio Rate: regular rate Rhythm: regular rhythm
--- NOTE | 2024-11-11 10:57 | DSE_ITS ---
Date of service: 11/11/24 Time of Service: 16:04 DS: Diagnosis Discharge Diagnosis (1) Painful total knee replacement, right: Status: Resolved Discharge Plan Disposition Patient Disposition: Home Condition: Good Discharge Details Reason For Visit: Painful right TKA Attending Provider: Juanjose Erickson Primary Care Provider: Deepika Reynaga Home Meds and New Rx's Prescriptions: New celecoxib [Celebrex] 200 mg capsule 200 mg PO BID PRNQty: 60 0RF Rx Instructions: Take one tablet twice daily for pain and inflammation aspirin 81 mg tablet,delayed release (DR/EC) 81 mg PO BID 30 Days Qty: 60 0RF acetaminophen 500 mg tablet 1,000 mg PO Q8H PRN Qty: 90 0RF Rx Instructions: Take two tablets up to every 8 hours as needed for pain pantoprazole 40 mg tablet,delayed release (DR/EC) 40 mg PO DAILY Qty: 14 0RF dexamethasone 4 mg tablet 4 mg PO DAILY Qty: 2 0RF Rx Instructions: Take one tablet once daily for two days docusate sodium [Colace] 100 mg capsule 100 mg PO BID Qty: 30 0RF gabapentin 300 mg capsule 300 mg PO QHS Qty: 14 0RF Rx Instructions: Take one tablet at bedtime oxycodone 5 mg tablet 5 mg PO Q4H PRNQty: 18 0RF Rx Instructions: Take one tablet up to every 4 hours as needed for severe postoperative pain Continued atorvastatin 10 mg tablet 10 mg PO DAILY lisinopril 40 mg tablet 40 mg PO DAILY Discontinued aspirin 81 mg tablet,delayed release (DR/EC) 81 mg PO DAILY Discharge Instructions Additional Instructions: Total Knee Revision Discharge Instructions Activity: The most important activity is to walk and to work on gentle motion (both flexion and extension). You should try to take short walks a few times a day. It is important that when resting you work on keeping the knee straight. Avoid putting a pillow behind the knee as this will encourage flexion. Work on range of motion exercises as provided by Physical Therapy. - Start outpatient physical therapy within 2 weeks. - You should wear the LEIDA hose on both legs for 2 weeks. You may remove these at night. You may also use any compression sock in place of the LEIDA hose. - Utilize [employer] to review exercises, see videos on exercises and obtain basic information pertaining to your surgery and your recovery. Dressing: Remove the Mehran wrap by 2 days after your surgery and put on the LEIDA stocking given to you from the hospital. Keep the surgical dressing (underneath the MEHRAN wrap) in place for at least one week. After the first week it may be removed and replaced with light gauze and tape or nothing. The wound and dressing may get wet after 3 days but avoid soaking the dressing or otherwise it will need to be changed. Many people prefer covering the dressing with cling wrap (saran wrap) to minimize it from getting soaked. If it gets wet, just pat dry. If it starts to peel off then it will need to be changed. Medications: - You should take Tylenol and anti-inflammatory Celebrex as your primary pain control medications. If the Celebrex is too expensive or not covered, please call the office for another alternative (Advil/Ibuprofen or Naproxen/Aleve) - You have been prescribed a stronger pain medication Oxycodone for breakthrough pain, take as needed as prescribed. - You have also been prescribed a stomach acid reduction agent Pantoprozole to help reduce stomach acid and reflux. - You have been prescribed Gabapentin to take at night for restlessness and nerve pain. - You will be taking Aspirin 81mg twice a day for DVT prevention unless instructed otherwise. - You have also been prescribed Decadron to take to control post-operative nausea and pain. You will start this tomorrow. - If you have constipation you should take Colace (which has been prescribed) or Miralax (which is available [id number]). It takes most people 3-4 days to have a bowel movement. Follow-up: 2 weeks If you have any acute concerns or questions, please do not hesitate to contact the office at [phone]. You may contact Dr. Erickson with any questions after hours through the hospital at [phone] or on his cell phone at [phone]. Stand Alone Forms: Anesthesia Discharge Inst., Veronica.Nerve Block Instructions, Kain Cruz ([facility]U) Referrals: Juanjose Erickson MD [ [facility] STAFF PHYSICIAN] - 11/24/24 8:00 am Equipment/Supplies: Walker Activity:: Elevate Remove Dressings/Wound Care:: Do Not Remove Shower/Bathe:: Cover Diet:: As Tolerated Discharge Orders Discharge Orders: Discharge Order (Routine); Ordered 11/11/24 Ordered By: Peri Paniagua Discharge Data Discharge Date/Time-TO BE ENTERED AT DEPARTURE: 11/11/24 17:16 DS: Summary Time Spent with Patient providing and/or coordinating discharge services: Less than 30 minutes Status at Discharge Functional status at discharge: uses cane/walker Overall status at discharge: patient is progressing back to baseline Mental Status: mental status grossly normal Speech and Movement: speech and movement normal Mood: congruent mood Affect: normal affect Quality:SDOH Health Related Social Needs: No Data to Display Exam Psych Mental Status: mental status grossly normal Speech and Movement: speech and movement normal Mood: congruent mood Affect: normal affect DS: Data Vitals/I&O Vitals and I&O: Vital Signs Temperature 97.7 F 11/11/24 10:53 Pulse 77 11/11/24 10:53 Pulse Rhythm Regular 11/11/24 10:53 Respiratory Rate 16 11/11/24 10:53 Respiratory Depth Normal 11/11/24 10:53 Blood Pressure 152/89 H 11/11/24 10:53 Pulse Oximetry 98 11/11/24 10:53 Oxygen Delivery Method Room Air 11/11/24 10:53 Oxygen Flow Rate 0 11/11/24 10:53 Pain Level 0 11/11/24 10:53 Intake & Output 11/10/24 11/10/24 11/11/24 11:59 23:59 11:59 Weight 157 lb 6.561 oz 147 lb 0.773 oz PFSH All Active Problems Femoroacetabular impingement of right hip (Acute) Encounter for screening colonoscopy (Acute) Surgical wound breakdown (Acute) History of total left hip arthroplasty (Acute ~11/20/23) History of total right knee replacement (Acute 01/16/23) Arthritis of left knee (Acute) Steroid injection: 01/16/2023; 07/02/23 Carotid bruit (Acute) Hyperlipidemia (Acute) Hypertension (Chronic) Medical History Hx of hyperlipidemia Hx of essential hypertension Eczema Surgical History History of colonoscopy (~05/2024) History of left hip replacement 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 Time Spent with Patient Time Spent with Patient: <45 minutes Time was spent: preparing to see the patient(eg.review tests) and counseling the patient
[2024-11-11] MEDS: Celecoxib 200 MG CAP 400 MG PO (11:04)
[2024-11-11] MEDS: Acetaminophen 500 MG TAB 1000 MG PO (11:04)
[2024-11-11] MEDS: Lactated Ringers 1,000 ML 80 ML IV (11:12)
--- NOTE | 2024-11-11 11:14 | W.ANESPRE ---
General Info Date of Service Date Performed: 11/11/24 Height: 5 ft 7 in Weight: 66.7 kg Body Mass Index (BMI): 23.0 Surgical Procedure: Operation Date: 11/11/24 11:40 Proposed Procedure Side Surgeon p Knee Open Synovectomy, Possible Total Revision Right Juanjose Erickson MD Meds Allergies and Home Medications Allergies Allergy/AdvReac Type Severity Reaction Status Date / Time No Known Allergies Allergy Verified 11/11/24 10:59 Home Medication ?Medication ?Instructions ?Recorded atorvastatin 10 mg tablet 10 mg PO DAILY 10/10/22 lisinopril 40 mg tablet 40 mg PO DAILY 11/07/23 acetaminophen 500 mg tablet 1,000 mg (2 x 500 mg) PO Q8H PRN 11/11/24 pain #90 tabs aspirin 81 mg tablet,delayed 81 mg PO BID 30 days #60 tabs 11/11/24 release celecoxib 200 mg capsule (Celebrex) 200 mg PO BID PRN #60 caps 11/11/24 dexamethasone 4 mg tablet 4 mg PO DAILY #2 tabs 11/11/24 docusate sodium 100 mg capsule 100 mg PO BID #30 caps 11/11/24 (Colace) gabapentin 300 mg capsule 300 mg PO QHS #14 caps 11/11/24 oxycodone 5 mg tablet 5 mg PO Q4H PRN #18 tabs 11/11/24 pantoprazole 40 mg tablet,delayed 40 mg PO DAILY #14 tabs 11/11/24 release Current Visit Medications: Current Medications Generic Name Dose Route Start Last Admin Trade Name Freq PRN Reason Stop Dose Admin Acetaminophen 1,000 mg 11/11/24 06:00 11/11/24 11:04 Acetaminophen 500 Mg Tab PO 11/11/24 23:59 1,000 mg PREOP ZANDRA Administration Acetaminophen 1,000 mg 11/11/24 14:00 Acetaminophen 500 Mg Tab PO 12/11/24 13:59 TID ZANDRA Aspirin 81 mg 11/11/24 20:00 Aspirin E.C. 81 Mg Tabec PO 12/11/24 19:59 BID ZANDRA Atorvastatin Calcium 10 mg 11/12/24 08:30 Atorvastatin 10 Mg Tab PO 12/12/24 08:29 DAILY ZANDRA Celecoxib 400 mg 11/11/24 06:00 11/11/24 11:04 Celecoxib 200 Mg Cap PO 11/11/24 23:59 400 mg PREOP ZANDRA Administration Celecoxib 200 mg 11/11/24 20:00 Celecoxib 200 Mg Cap PO 12/11/24 19:59 BID ZANDRA Dexamethasone 4 mg 11/12/24 08:30 Dexamethasone 4 Mg Tab PO 11/13/24 08:31 DAILY ZANDRA Docusate Sodium 100 mg 11/11/24 10:55 Docusate Sodium 100 Mg Cap PO 12/11/24 10:54 BID PRN PRN Constipation Gabapentin 300 mg 11/11/24 20:00 Gabapentin 300 Mg Cap PO 12/11/24 19:59 HS ZANDRA Hydromorphone HCl 0.5 mg 11/11/24 10:55 Hydromorphone 2 Mg/Ml Syr IVP 12/11/24 10:54 Q2H PRN PRN Ringer's Solution 1,000 mls @ 80 mls/hr 11/11/24 06:00 11/11/24 11:12 IV 11/11/24 23:59 80 mls/hr INFUSION ZANDRA Administration Cefazolin Sodium/Dextrose 2 gm in 50 mls @ 100 mls/hr 11/11/24 06:00 Ancef Duplex IVPB 11/11/24 23:59 PREOP ZANDRA Tranexamic Acid/Sodium Chloride 1,000 mg in 100 mls @ 600 mls/hr 11/11/24 06:00 IVPB 11/11/24 23:59 DIRECTED ZANDRA Cefazolin Sodium/Dextrose 1 gm in 50 mls @ 100 mls/hr 11/11/24 12:00 Ancef Duplex IVPB 11/12/24 04:29 Q8H ZANDRA IV Miscellaneous Supplies 1 each 11/11/24 06:00 Iv Access IV 11/11/24 23:59 DIRECTED ZANDRA Lisinopril 40 mg 11/12/24 08:30 Lisinopril 20 Mg Tab PO 12/12/24 08:29 DAILY [facility] Ondansetron HCl 4 mg 11/11/24 10:55 Ondansetron 4 Mg/2 Ml Vial IVP 12/11/24 10:54 Q6H PRN PRN Nausea Oxycodone HCl 0 mg 11/11/24 10:55 Oxycodone 5 Mg Tab PO 12/11/24 10:54 Q3H PRN PRN Pain Pantoprazole Sodium 40 mg 11/12/24 07:30 Pantoprazole 40 Mg Tabcr PO 12/12/24 07:29 DAILY@0730 ZANDRA Polyethylene Glycol 17 gm 11/11/24 10:55 Polyethylene Glycol 3350 17 Gm Packet PO 12/11/24 10:54 BID PRN PRN Constipation Sodium Chloride 0 ml 11/11/24 06:00 Normal Saline Flush 10 Ml Syr IV 11/11/24 23:59 PRN PRN Sodium Chloride 0 ml 11/11/24 06:00 Normal Saline 10 Ml Vial IJ 11/11/24 23:59 DIRECTED PRN Sterile Water 0 ml 11/11/24 06:00 Water,Injection,Sterile 10 Ml Vial IJ 11/11/24 23:59 DIRECTED PRN Tranexamic Acid 1,300 mg 11/11/24 10:50 Tranexamic Acid 650 Mg Tab PO 12/11/24 10:49 ONCE PRN postoperative PFSH Active Problems Active Problems: Problem Status Onset Code Femoroacetabular impingement of right hip Acute M25.851 Encounter for screening colonoscopy Acute Z12.11 Surgical wound breakdown Acute T81.31XA History of total left hip arthroplasty Acute ~11/20/23 Z96.642 Painful total knee replacement, right Resolved T84.84XA, Z96.651 History of total right knee replacement Acute 01/16/23 Z96.651 Arthritis of left knee Acute M17.12 Carotid bruit Acute R09.89 Hyperlipidemia Acute E78.5 Hypertension Chronic I10 Medical History Medical History Hx of hyperlipidemia Hx of essential hypertension Eczema Surgical History Surgical History History of colonoscopy (~05/2024) History of left hip replacement History of total right knee replacement (TKR) Status post total replacement of right shoulder History of arthroscopy of right knee Hx of appendectomy Tobacco Smoking/Tobacco Use Status: Never Alcohol Alcohol Intake: current Alcohol intake frequency: a few times a week Alcohol type: beer Substance Use Substance use: Never Substance use type: does not use Vital Signs and Lab Results Vital Signs Most Recent Vital Signs in EMR: Most Recent Vital Signs Temp Pulse Resp BP Pulse Ox 36.5 C 77 16 152/89 H 98 11/11/24 10:53 11/11/24 10:53 11/11/24 10:53 11/11/24 10:53 11/11/24 10:53 Lab Results Blood Type / Crossmatch: No Data to Display Complete Blood Count: No Data to Display Complete Metabolic Panel: No Data to Display Liver Function Panel: No Data to Display Coagulation Panel: No Data to Display Cardiac Panel: No Data to Display Arterial Blood Gas: No Data to Display Venous Blood Gas: No Data to Display Pancreas Panel: No Data to Display Thyroid Panel: No Data to Display Infectious Disease: No Data to Display Blood Cultures: No Data to Display Toxicology Panel: No Data to Display Imaging and Studies Imaging and Studies Study information below may be from another EMR and interpreted by another provider. Please see original notes in EMR for more complete details. Carotid Artery Summary:: Patient Name: Venkatesh Lua #: [id number]: DI Ordering Provider: Juanjose Erickson M.D. : [facility] Primary Care Provider: Cy Valle M.D.Date of Exam: 01/11/23Sex: M Admission Date: 01/11/23 : 1960 Age: 62 Exam(s) US CAROTID CLINICAL HISTORY: preop R09.89 SYMPTOMS CIRCULATORY AND RESPIRATORY SYSTEMS, CAROTID BRUIT. On the left side there is noncalcified plaque in the distal left CCA-carotid bulb. No elevated velocities at level but estimated at 50 percent stenosis. Higher velocities are noted in the proximal left external carotid artery registering at 250cm/sec, of questionable clinical significance. Velocities in the mid and upper left internal carotid artery in the neck are within normal limits. On the right side there is some noncalcified plaque at the carotid bulb and proximal right ICA both out significantly elevated velocities.. Amount of stenosis approximately 30 percent. No significantly elevated velocities in the proximal external carotid artery on this side. \ Anesthesia Assessment and Plan Anesthesia History Personal History: No History of Anesthesia Complications Family History: No Family History of Anesthesia Complications Exercise Tolerance Exercise Tolerance: Metabolic Equivalents>4 Pertinent Negatives Pertinent Negatives: No Symptoms of GERD Cardiac & Pulmonary Exam Cardiac Exam: Normal S1/S2 Heart Sounds Pulmonary Exam: Clear Bilateral Breath Sounds Implantable Cardiac Device Does patient have a Pacemaker or an ICD?: No Airway Exam Known Difficult Airway: No Mallampati Class: 2 Mouth Opening: Normal (> 3cm) Thyromental Distance: Greater than 3 cm Neck Range of Motion: Full ROM Neck Circumference: Normal Teeth Condition: Normal Dentition ASA Classification ASA Score: ASA 2 Emergency Case?: No NPO Status NPO Status: NPO Clears >2 hours, Solids >8 hours Anesthesia Plan Resuscitation Status: Full Code Anesthesia Technique: Spinal Anesthesia Airway Planned: Natural Airway Pain Management: Surgeon and patient request nerve block Monitors Used: Standard Monitors
[2024-11-11] MEDS: ceFAZolin 2 GM/50 ML BAG IVPB (12:05)
--- NOTE | 2024-11-11 12:12 | ROE_ITS ---
Operative Note Operative Note PRE-OP DIAGNOSIS: Right Knee Arthrofibrosis and Instability POST-OP DIAGNOSIS: same PROCEDURE: Revision Total Knee Replacement - Femoral Component - RIGHT Synovectomy - RIGHT Knee SURGEON: Juanjose Erickson CONTACT REPRESENTATIVE: Peri Paniagua ANESTHESIA TYPE: Spinal Refer to Anesthesia Record ESTIMATED BLOOD LOSS: 300 PATHOLOGY: none sent COMPLICATIONS: None Patient was transported to: PACU Patient's condition: stable Implants: FEMUR: Depuy Attune Revision CRS Femoral Component, Size 8 - 30mm Cemented Femoral Stem - 4mm Posterior Medial Augment POLY: Depuy Attune CRS Fixed Platform, 8x10mm Indications: I have seen Nawaf in clinic for symptoms of ongoing knee pain. He continues to struggle with swelling and resulting stiffness witha feeling of distrust and instability with hiking/climbing/walking. Given the failure of other options and agreement with a second opinion, I recommended a synovectomy with revision of the femoral component to address his balancing of the knee. I discussed the technical details of a revision knee replacement. I explained the risks of the procedure to include, but not limited to, bleeding, infection, pain, stiffness, fracture, damage to nerves and vessels, damage to muscles and tendons, loosening, need for repeat procedure, blood clot and cardiopulmonary demise. Despite these risks, Nawaf elected to proceed. Findings: There is dense synovitis seen throughout the knee. The tibia and femur were well-fixed. The femur was removed and a new femur with increased posterior augment was placed. Procedure Description: Nawaf was greeted in the preoperative holding area where the correct side was identified and marked. The consent was reviewed with the patient and signed. The history and physical was updated. All questions were answered. Preoperative medications were administered: Acetaminophen 1000mg, Celebrex 400mg, and Gabapentin 300mg. An adductor canal block was then administered by the anesthesia team in the [facility]. Nawaf was taken back to the operating room. A spinal anesthestic was then administered. The patient was placed into the supine position on the operating room table. A nonsterile tourniquet was placed high onto the leg. Posts were placed for positioning during the procedure. All bony prominences were well padded. Prophylactic antibiotics in the form of Cefazolin were administered. 1g of Tranxemic Acid was given intravenously within 30 minutes of incision. The right leg was then prepped with Chloraprep and draped in a standard fashion with impervious stockinette. A second prep with Chloraprep was performed prior to application of Iodine impregnated skin protection. A timeout to confirm correct identity, side and site, procedure, allergies, anesthesia, and medical concerns was performed. With the knee in some flexion, the previous midline incision was made overlying the knee. Full thickness skin flaps were raised once the extensor mechanism was encountered. These were raised medially and laterally in a full thickness fashion. Any bleeding was controlled with electrocautery. Once the extensor mechanism was fully exposed, a medial parapatellar arthrotomy was performed in a flexed position. All bleeding from the arthrotomy and the geniculate arteries was coagulated. An aggressive complete synovectomy was then performed superiorly, medially, and laterally. Scarring from the fat pad and a portion of the fat pad was removed as well. The knee was then flexed up and the previous polyethylene was removed. I then created a space underneath the anterior aspect of the tibial tray for testing. I placed a bone tamp under the anterior edge of the tibia and had the interface of the tibia and bone identified. My under water assistant was watching the interface along with myself while I had strong mallet blows against the tibial tray. There is no fluid extravasation. There was no motion of the tray. Attention was then turned to removal of the previous femoral implant. The interface between the bone and the implant was identified. Utilizing a small oscillating saw I went around the entirety of the femoral component to remove the attachments of the component to the underlying bone. This was done sequentially in a stepwise fashion throughout. Then utilizing a bone tamp on the end of the implant as well as anteriorly, was able to remove the femoral component with minimal bone loss. The bone and release this was inspected. There was some bone loss centrally and anteriorly and a slight amount over the distal aspect around the pegs. There was significant fusion of the bone and no areas of undermining of the implant nor of loss of bone. A posterior synovectomy was also performed there was better visualization. Any remnant inflamed synovium and necrotic tissue was debrided fully. I then used a cut through trial to placed onto the femur. Given that there was instability on the medial side of the knee mostly in flexion I placed a 4 mm augment posterior medially. I did place his back onto the femur with a size 8 femoral trial. It was impacted into position and had excellent fixation of the medial side the femur distally and posteriorly. This was held in position and then trialed. A size 10 mm polyethylene provided full extension as well as excellent stability in mid flexion and in flexion. This still was quite tight in flexion and appeared there was some patella Baha. However, given that the tibial tray was well-fixed I elected to continue to move forward with posterior synovectomy and releasing the posterior spur the implant and not adjusting the tibia nor the patella. Furthermore, distal lysing the femur to lower the joint line would excessively tight in extension gap and necessitate increasing the femoral size with further augmentation. Based on previous x-rays the posterior offset was created quite accurately with the size 8 and going up larger would likely overstuff it in addition the joint line measured appropriately preoperatively on x-rays and intraoperatively. With the cut through pinned in position I then performed the cuts of the notch. Opening reamer and reamer for the short cemented stem was then placed through the cut through guide. A trial implant was placed which showed good fixation on the femur and stability with a size 10 mm polyethylene. The final components, except for the polyethylene were opened on the back table. The periosteal and capsular tissues, especially posteriorly, around the knee were then systematically injected with a periarticular cocktail consisting of 246mg of Ropivacaine, 0.5mg of Epinephrine, 0.08mg of Clonidine, and 30mg of Ketorolac, diluted to 100cc.. The tourniquet was then inflated to 275mmHg. The knee was thoroughly irrigated with a pulse lavage and dried. On the back table, the implants were opened. They were assembled per die equipment operator recommendations. Now with the implants opened, the cement was mixed. 2 batches of medium viscosity cement were prepared with vacuum assistance. Using a cement gun the femoral component was coated with cement. I then placement onto the cut surface of the clean and dried femur. I placed this into the canal as well. This was manually pressurized. I then inserted the femoral component into position. It was malleted down into position based on the trialing process making sure to remove any excess flexion of the component. Excess cement was removed. It was ensured to be down against the cut surface. The trial polyethylene was then inserted and the leg was brought out into full extension for the duration of the cement curing process, approximately 18min. During this process attention was turned to the gutters of the knee and for all interfaces for any excess cement. While the cement was hardening, the knee was irrigated with Surgiphor chlorhexadine solution. This was allowed to sit in the knee for 3 minutes and then it was thoroughly irrigated with saline. After the cement had finally cured, approximately 18min, the knee was taken through range of motion. A size 10mm polyethylene component provided the best range of motion and stability with less than 2mm gapping with medial and lateral stress and full extension without significant hyperextension in all points of range of motion. This was much improved in the preoperative state where there was some instability in mid flexion as well as in flexion. There is much more stability now. The patella did like to tilt. Therefore I performed a lateral facetectomy. I also performed soft tissue release. With the arthrotomy clamped patella tracked without difficulty. However, there was some resistance to flexion past about 115 to 120 degrees. However, given the stability of the knee throughout this arc of motion from 0-115?120 degrees, I elected to proceed with a 10 mm polyethylene. The capsule was then reapproximated with a #2 FiberWire around the patella and No. 1 Vicryl at multiple locations. The capsule was finally closed with a No. 2 Stratafix, barbed suture. The tourniquet was then released and the arthrotomy appeared watertight without significant bleeding. Deep tissues were then reapproximated with 0 Vicryl and 2-0 Monocryl. The skin was closed with a running 3-0 Monocryl in a subcuticular fashion. This was reinforced with skin glue. A Mepilex silver dressing was applied along with a [id number] ANGELES wrap. A CryoCuff was applied. Nawaf was transferred to the hospital bed without difficulty an suffering no apparent complication. Nawaf has a good prognosis. Physical therapy will start today and without restri ctions, weight-bearing as tolerated. Aspirin 81mg BID will be used for DVT prophylaxis. Date of Procedure: 11/11/24
[2024-11-11] MEDS: TRANEXAMIC ACID/SOD. CHL. 1,000 MG/100 ML BAG 600 MG IVPB (12:17)
--- NOTE | 2024-11-11 12:37 | W.ANESNERVE ---
Nerve Block Single Injection Procedure Date and Time Date Performed: 11/11/24 Procedure Start: 11:35 Location Where Procedure Performed Procedure Location: Day Surgery Unit Reason Performed: Postoperative Analgesia Requesting Provider: Juanjose Erickson Timeout Performed Timeout Performed: Yes Monitoring Used ECG, Blood Pressure, SpO2 and See EMR for corresponding vital signs Sterility Sterility: Hand Hygiene, Surgical Cap, Surgical Mask, Sterile Gloves and Chlorhexidine Sedation Given During Procedure Sedation Given (Indicate Dose Given): No Sedation given Patient Mental Status Patient Mental Status: Awake Nerve Block 1st Nerve Block: Laterality: Right Block Type: Adductor Canal Ultrasound Image Saved?: Yes Needle / Catheter Used: 100mm SonoPlex II Local Anesthetic Bolus (Indicate Dose Given): Lidocaine used for local infiltration of skin, Injected in 3-5ml increments after negative blood aspiration, Bupivacaine 0.25% Dose:: 10ml and Exparel Dose:: 10ml Additives (Indicate Dose Given): None Ultrasound: Sterile probe cover and gel used Nerve Stimulator: Not Used Paresthesia: None Procedure Tolerated: No Complications and Patient tolerated well Procedure Outcome: Successful Performed By: Oscar Cotter
--- NOTE | 2024-11-11 16:01 | W.ANESPOSTOP ---
Postoperative Evaluation Date, Time and Location Date Performed: 11/11/24 Time Performed: 13:44 Patient Location: Day Surgery Unit Vital Signs Most Recent Imported Vital Signs: Most Recent Vital Signs Temp Pulse Resp BP Pulse Ox 36.6 C 58 L 18 174/99 H 99 11/11/24 15:30 11/11/24 15:38 11/11/24 15:38 11/11/24 15:38 11/11/24 15:38 Pain Score Most Recent Pain Score: Most Recent Pain Score Pain Level 5 11/11/24 15:30 Assessment Mental Status: Awake (Alert & Oriented to Patient Baseline) Airway and Respiratory Function: Patent airway with normal (patient baseline) respiratory exam Cardiovascular Function: Hemodynamically Stable Hydration Status: Adequately Hydrated Nausea & Vomiting: No Nausea or Vomiting Pain: Pain is tolerable per patient Peripheral Nerve Block: Regional nerve block not resolved at time of post operative discharge
--- NOTE | 2024-11-11 17:18 | IN_ITS ---
PT Notes Visit Reasons: Painful right TKA Physical Therapy Day Surgery Initial Evaluation Date: Referring Doctor: Peri Paniagua PT Orders: PT CONSULT: Status post Ortho surgery Precautions: Weightbearing as tolerated right lower extremity Patient Profile/Admitting Diagnosis: Venkatesh is a 64-year-old male presenting status post revision of right femoral component TKA synovectomy by Dr. Erickson on 11/11/2024.. Postop uncomplicated. PMHX: emoroacetabular impingement of right hip (Acute) Encounter for screening colonoscopy (Acute) Surgical wound breakdown (Acute) History of total left hip arthroplasty (Acute ~11/20/23) History of total right knee replacement (Acute 01/16/23) Arthritis of left knee (Acute) Steroid injection: 01/16/2023; 07/02/23Carotid bruit (Acute) Hyperlipidemia (Acute) Hypertension (Chronic) Medical History Hx of hyperlipidemia Hx of essential hypertension Eczema Surgical History History of colonoscopy (~05/2024) History of left hip replacement History of total right knee replacement (TKR) Status post total replacement of right shoulder History of arthroscopy of right knee Hx of appendectomy Social History/Home Situation: Resides with in two-story home with 2 steps to enter without rail. Patient has bedroom on first floor if needed however primary bed and bath are on second floor. 12 steps with rail to second floor and down to basement. Patient is employed full-time. He enjoys biking hiking weight training and walking. Patient independent cooking ADLs ambulation and driving Equipment Owned/DME: [facility] Subjective: Patient reports he feels well and has been through this before. He states he is eager to get back to biking and hiking which he has been able to do because of the right knee instability. Objective: [] General Observation: Male semireclined on stretcher with Cryo/Cuff to right knee, IV in place, at bedside Mental Status: Alert and oriented x 4, cooperative, able to follow instructions, agreeable to participate Pain: 3/10 right knee ROM: [] Right Upper Extremity: WNL Left Upper Extremity: WNL Right Lower Extremity: WNL except knee 0-100 degrees Left Lower Extremity: WNL Strength: [] BUE: 5/5 Right Lower Extremity: Hip 3/5 knee 3/5 ankle 3/5 Left Lower Extremity: 5/5 Sensation: Intact Bed Mobility/Transfers: Supine to sit independent Sit to stand independent Stand to sit independent Bed to chair modified independent Gait: Patient ambulated 300 feet with FWW modified independent with reciprocal pattern demonstrating knee stability throughout. Patient ambulated 25 feet x 1 without assistive device supervision with reciprocal pattern slightly wider base of support 10 with assistive device. Stairs: 2 steps without rail step to pattern supervision; 13 stairs with rail step to pattern supervision Balance: Static Sitting: Normal Dynamic Sitting: Good plus Static Standing: Normal Dynamic Standing: Good Special Tests: [] Mobility Limitations Standardized Measure [] [facility] 6 clicks Basic Mobility Inpatient Short Form: [] Raw Score: 23 CMS Score: 11.20% Informed Consent/Education: Patient instructed in purpose of PT consult. Treatment: 42629 packet containing TKA exercise protocol has been given to patient. Education and training on initial set of exercises that can be done at home have been completed with patient. Assessment: Patient is 64-year-old male presenting with minimal pain right knee status post surgery. Patient very motivated to return to prior level of function and resume his recreational activities. Patient presents with clinical signs and symptoms consistent with current/admitting diagnoses that have resulted to mobility limitations, gait instability, generalized weakness, and impairment of motor control as demonstrated by the following impairment level findings: 1. Decreased strength to right knee major muscle groups 2. Impaired standing balance 3. Limitation of joint range of motion in right knee 4. Impaired functional activity tolerance Impairments are contributing to the following functional limitations: 1. Inability to safely ambulate without assistive device 2. Increase completion time for mobility ADL performance 3. Increased fall risk 4. Inability to perform stairs with reciprocal pattern. Patient is assessed as a level complexity based on the following: History: 64-year-old male with impairment level findings, functional limitations, and past medical history as indicated above Examination: Demonstrable impairment in strength, balance, and mobility level with underlying impairments and functional limitations as documented above Presentation: Stable Decision Making: Low Goals: N/A. Plan of Care/Treatment Plan: N/A. DISCHARGE RECOMMENDATIONS: Home with home exercise program TREATMENT CODE/TIME: 63817 x 16 minutes for 1 unit, 87353 x 13 minutes for 1 unit/4:45 PM?5:14 PM Thank you for the opportunity to participate in the care of this patient. Louise Collado, PT [facility]
== END 2024-11-11 17:16 | disposition home or self-care (01) ==
PROVIDERS: PCP Family Medicine; Visit Provider Student in an Organized Health Care Education/Training Program
PROC: (CPT 27487; principal; 2024-11-11 11:30)
DX: T84.82XA Fibrosis due to internal orthopedic prosthetic devices, implants and grafts, initial encounter; T84.092A Other mechanical complication of internal right knee prosthesis, initial encounter; T84.84XA Pain due to internal orthopedic prosthetic devices, implants and grafts, initial encounter; Z96.651 Presence of right artificial knee joint; G89.18 Other acute postprocedural pain; M25.561 Pain in right knee; E78.5 Hyperlipidemia, unspecified; I10 Essential (primary) hypertension
CPT/HCPCS: 27486; 64447; 97110; 97161; C1776; J0665; J0666; J0690; J1100; J2250; J2401; J2405; J2704

== ENCOUNTER 2024-11-24 09:20 | Inpatient (IN) | payer OTHER, SELFPAY ==
[2024-11-24 09:45] VITALS: BP 130/94; PULSE 95; RESP 20; TEMP 37.7; O2SAT 97
[2024-11-24 10:21] LABS: HCT 34.2 % (40.0-50.0); HGB 11.4 g/dL (13.5-17.5); MCH 32.5 pg (27.0-33.0); MCHC 33.3 % (32.0-36.0); MCV 97 fL (80-95); MPV 9.3 fL (8.0-11.0); Platelet Count 321 10^3/uL (130-400); RBC 3.51 10^6/uL (4.36-5.78); RDW 14.8 % (11.8-14.1); RDW-SD 53.6 fL
[2024-11-24 10:38] LABS: ALT 31 U/L (16-63); AST 14 U/L (15-37); Albumin 3.5 g/dL (3.4-5.0); Alkaline Phosphatase 72 U/L (46-116); Anion Gap 9.4 mmol/L (3-11); BUN 26 mg/dL (7-18); Bilirubin, Total 0.8 mg/dL (0.2-1.0); CO2 26.6 mmol/L (21.0-32.0); CREATININE 1.1 mg/dL (0.70-1.30); Calcium 9.6 mg/dL (8.5-10.1); Chloride 101 mmol/L (98-107); Glucose 120 mg/dL (74-106); Potassium 3.8 mmol/L (3.5-5.1); Sodium 137 mmol/L (136-145); Total Protein 7.6 g/dL (6.4-8.2)
[2024-11-24] MEDS: ceFAZolin 1 GM/50 ML BAG IVPB ×2 (10:40→18:35)
[2024-11-24 10:50] LABS: C-Reactive Protein > 25.00 mg/dL (<or=0.5)
--- NOTE | 2024-11-24 11:01 | W.PC.ACHO ---
Registration Status: Primary Language: Preferred Language: Medical / Surgical History (Last Reviewed 11/11/24 @ 10:55 by Adriane Bañuelos RN) Hx of hyperlipidemia Hx of essential hypertension Eczema (Last Reviewed 11/11/24 @ 10:55 by Adriane Bañuelos RN) History of colonoscopy (~05/2024) History of left hip replacement History of total right knee replacement (TKR) Status post total replacement of right shoulder History of arthroscopy of right knee Hx of appendectomy Most Recent Vital Signs Temperature 37.7 C H 11/24/24 09:45 Pulse 95 H 11/24/24 09:45 Pulse Rhythm Regular 11/24/24 09:45 Respiratory Rate 20 11/24/24 09:45 Respiratory Effort Normal 11/24/24 09:45 Respiratory Depth Normal 11/24/24 09:45 Respiratory Pattern Normal 11/24/24 09:45 Blood Pressure 130/94 H 11/24/24 09:45 Pulse Oximetry 97 11/24/24 09:45 Oxygen Delivery Method Room Air 11/24/24 09:45 Oxygen Flow Rate 0 11/24/24 09:45 Pain Level 7 11/24/24 10:55 Allergies No Known Allergies Allergy (Verified 11/24/24 08:08) IV IV Catheter Gauge [Left 20 Antecubital] Diet Orders Category Date Time Status Regular/Normal [DIET] Nutrition 11/24/24 Lunch Active Diagnostics 11/24/24 Range/Units 09:55 WBC 22.40 H (4.4-10.8) 10^3/uL RBC 3.51 L (4.36-5.78) 10^6/uL Hgb 11.4 L (13.5-17.5) g/dL Hct 34.2 L (40.0-50.0) % MCV 97 H (80-95) fL MCH 32.5 (27.0-33.0) pg MCHC 33.3 (32.0-36.0) % RDW 14.8 H (11.8-14.1) % Plt Count 321 (130-400) 10^3/uL MPV 9.3 (8.0-11.0) fL Sodium 137 (136-145) mmol/L Potassium 3.8 (3.5-5.1) mmol/L Chloride 101 (98-107) mmol/L Carbon Dioxide 26.6 (21.0-32.0) mmol/L Anion Gap 9.4 (3-11) mmol/L BUN 26 H (7-18) mg/dL Creatinine 1.1 (0.70-1.30) mg/dL Est GFR (CKD-EPI 2020) 74.50 (mL/min/1.73m2) Glucose 120 H (74-106) mg/dL Calcium 9.6 (8.5-10.1) mg/dL Total Bilirubin 0.8 (0.2-1.0) mg/dL AST 14 L (15-37) U/L ALT 31 (16-63) U/L Alkaline Phosphatase 72 (46-116) U/L C-Reactive Protein > 25.00 H (<or=0.5) mg/dL Total Protein 7.6 (6.4-8.2) g/dL Albumin 3.5 (3.4-5.0) g/dL 11/24/24 10:08 Blood Culture - Pending Blood 11/24/24 09:55 Blood Culture - Pending Blood Intake and Output - 24 Hour Total 11/24/24 09:05 thru 11/24/24 10:50 Intake Total 10 Balance 10 Weight 66.9 kg Intake: IV 10 Other: Urine Appearance Clear Falls Risk Assessment History of Falls No History 11/24/24 09:45 Contributing Factors No Factors 11/24/24 09:45 Ambulatory Aids Independent 11/24/24 09:45 Tubes/Lines None 11/24/24 09:45 Gait Evaluation No gait disturbance 11/24/24 09:45 Cognition No cognitive impairment 11/24/24 09:45 Fall Total Score 0 11/24/24 09:45 Level of Risk Standard/Low Risk 11/24/24 09:45 v v v v v v v v v Sending and/or Receiving Nurses: Please use comment section below to note any information pertinent to the patient hand-off not included above. Information / Comments: Pt sent here from Dr Erickson's office after f/u appointment for R TKA revieled possible infection of the incision site. Pt admitted directly to floor for IV antibiotic treatment. Pt walked to floor unassisted. Spouse is at bedside. Pt is a/o x 4 and independent with adl's. Pt had all questions answered. IV inserted by nurse and IV antibiotics have been started. Lung sounds clear to auscultation and pt has active bowel soudns. Pain level at a 7/10. Last pain meds taken at 0630 today. No pain meds ordered for pt as of now. Will reach out to provider. Report received from:
[2024-11-24] MEDS: VANCOMYCIN/WATER (PEG) 2 GM/400 ML BAG IVPB (11:13)
--- NOTE | 2024-11-24 11:53 | W.PREOPHP ---
Assessment and Plan Assessment and plan (1) History of revision of total replacement of right knee joint: Status: Acute (2) Infection of prosthetic right knee joint: Status: Acute Assessment and plan: Nawaf is an active 64-year-old male who unfortunately has an infection about the right knee after femoral component revision. This is quite unusual. Infection is not that common and usually seen mostly in patients with other significant risk factors. He did have a longer procedure with the revision although without significant concerning features of the case. He did have some drainage but this was treated appropriate with dressings although this could have been a point of contamination. Additionally, the overt outward signs in the actually does not look that bad and he does have a very aggressive infectious process going on based on his labs. Initial Gram stain is gram-positive cocci in chains which would be suggestive of strep. Given that we already have an aspiration of the knee and he was clinically not feeling well I did recommend admission to the hospital for pain control as well as IV antibiotics. I will need to obtain the correct polyethylene for his knee replacement before proceeding the operating room which we will do tomorrow. He will be n.p.o. after midnight with surgery tomorrow afternoon. I will start him on vancomycin and cefazolin. I will ask the hospitalist team to be involved to to assist with this complex case. History of Present Illness History of Present Illness Chief Complaint: Right knee infection Narrative: Nawaf is a 64-year-old male who underwent revision of his right knee replacement for mid flexion instability on November 11, 2024. He did well from the surgery as he was discharged home on same day. His recovery was proceeding up accordingly with some swelling about the leg. He presented to the office on postop day #9 for some sanguinous drainage from the wound. At that time he had minimal pain. He was walking. He had flexion of about 90 degrees. Dressing was applied to the knee and he was scheduled for regular follow-up on November 24, postop day 13. Over the weekend I received a phone call that he had a fever on Sunday associate with some dizziness. He also had increasing pain about the knee with more difficulty with range of motion. I advised him to keep the leg elevated and treat the pain until his visit on Sunday, the following day. He presented today to the office with notable pain and restriction of motion. An aspiration was performed which showed purulent material within the knee joint and thus he was admitted to the hospital for antibiotics and surgical treatment of his infected right knee prosthesis. He has had the single episode of fever. He does report some chills. He denies chest pain or shortness of breath. He denies other recent illness. Review of Systems All systems reviewed & are unremarkable except as noted in HPI and below PFSH All Active Problems (Updated 11/24/24 @ 17:33 by Juanjose Ericskon MD) Infection of prosthetic right knee joint (Acute) History of revision of total replacement of right knee joint (Acute 11/11/24) Femoral component Femoroacetabular impingement of right hip (Acute) Encounter for screening colonoscopy (Acute) Surgical wound breakdown (Acute) History of total left hip arthroplasty (Acute ~11/20/23) History of total right knee replacement (Acute 01/16/23) Arthritis of left knee (Acute) Steroid injection: 01/16/2023; 07/02/23 Carotid bruit (Acute) Hyperlipidemia (Acute) Hypertension (Chronic) Medical History Hx of hyperlipidemia Hx of essential hypertension Eczema Surgical History History of colonoscopy (~05/2024) History of left hip replacement 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 Meds Allergies and Home Medications Allergies Allergy/AdvReac Type Severity Reaction Status Date / Time No Known Allergies Allergy Verified 11/24/24 08:08 Home Medications ?Medication ?Instructions ?Recorded ?Confirmed ?Type atorvastatin 10 mg tablet 10 mg PO DAILY 10/10/22 11/24/24 History lisinopril 40 mg tablet 40 mg PO DAILY 03/27/24 04/14/25 History acetaminophen 500 mg tablet 1,000 mg (2 x 500 mg) PO Q8H PRN 11/11/24 11/24/24 Rx pain #90 tabs aspirin 81 mg tablet,delayed 81 mg PO BID 30 days #60 tabs 11/11/24 11/24/24 Rx release celecoxib 200 mg capsule (Celebrex) 200 mg PO BID PRN #60 caps 11/11/24 11/24/24 Rx docusate sodium 100 mg capsule 100 mg PO BID #30 caps 11/11/24 11/24/24 Rx (Colace) gabapentin 300 mg capsule 300 mg PO QHS #14 caps 11/11/24 11/24/24 Rx oxycodone 5 mg tablet 5 mg PO Q4H PRN #18 tabs 11/11/24 11/24/24 Rx pantoprazole 40 mg tablet,delayed 40 mg PO DAILY #14 tabs 11/11/24 11/24/24 Rx release Exam Const General: cooperative, healthy appearing, uncomfortable and no acute distress Extrem Other: 1 cm area of dehiscence at the distal one third of the wound with active seropurulent drainage. Tolerates minimal passive knee range of motion. No significant surrounding erythema. Resolving ecchymosis about the leg. Sensation intact to light touch over the deep and superficial peroneal nerve and tibial nerve. Palpable DP and PT pulse. Results Labs 11/24/24 09:55 11/24/24 09:55 Labs: Laboratory Results - last 24 hr 11/24/24 09:55 WBC 22.40 H RBC 3.51 L Hgb 11.4 L Hct 34.2 L MCV 97 H MCH 32.5 MCHC 33.3 RDW 14.8 H Plt Count 321 MPV 9.3 Sodium 137 Potassium 3.8 Chloride 101 Carbon Dioxide 26.6 Anion Gap 9.4 BUN 26 H Creatinine 1.1 Est GFR (CKD-EPI 2020) 74.50 Glucose 120 H Calcium 9.6 Total Bilirubin 0.8 AST 14 L ALT 31 Alkaline Phosphatase 72 C-Reactive Protein > 25.00 H Total Protein 7.6 Albumin 3.5 Last Vital Signs Temp 37.7 C H 11/24/24 09:45 Pulse 95 H 11/24/24 09:45 Resp 20 11/24/24 09:45 BP 130/94 H 11/24/24 09:45 Pulse Ox 97 11/24/24 09:45
[2024-11-24] MEDS: Acetaminophen 325 MG TAB 650 MG PO ×3 (12:09→20:19)
--- NOTE | 2024-11-24 13:07 | PHA.REVIEW2 ---
Pharmacy Admission Review Admission Clinical Review Admission Pharmacy Review: No Known Allergies Allergy (Verified 11/24/24 08:08) Resuscitation Status Full Code Height 5 ft 7 in Weight 66.9 kg Comments Comments/Follow Ups: Follow up with provider regarding missing home meds Pharmacy Admission Review Renal Dosing Renal Dosing: BUN 26 mg/dL (7-18) H 11/24/24 09:55 Creatinine 1.1 mg/dL (0.70-1.30) 11/24/24 09:55 Medications needing adjustments: Reviewed (CrCl 63 mL/min) List of meds needing interventions: Current medications are okay Anticoagulation Anticoagulation: Hgb 11.4 g/dL (13.5-17.5) L 11/24/24 09:55 Hct 34.2 % (40.0-50.0) L 11/24/24 09:55 Plt Count 321 10^3/uL (130-400) 11/24/24 09:55 Creatinine 1.1 mg/dL (0.70-1.30) 11/24/24 09:55 DVT Prophylaxis: Reviewed Medications: Enoxaparin (40mg daily) Opiate Usage Evaluate Pain Scale/Pains Meds: Reviewed (hydromorphone 0.5mg IVP q2h PRN - no doses given, oxycodone 5mg q4h PRN - no doses given) Scheduled Bowel Reg ordered if on Opiates?: Yes (docusate) Relevant Labs Relevant Labs: Sodium 137 mmol/L (136-145) 11/24/24 09:55 Potassium 3.8 mmol/L (3.5-5.1) 11/24/24 09:55 Chloride 101 mmol/L (98-107) 11/24/24 09:55 C-Reactive Protein > 25.00 mg/dL (<or=0.5) H 11/24/24 09:55 Electrolytes, C-Reactive P, ESR: Reviewed Cardiac Review BP, HR, EF%: Reviewed (BP 130/94 and HR 95) QTc Review QTc: Reviewed (No EKG on file) IV to PO Switch IV Medications: Reviewed (cefazolin, hydromorphone, ketorolac and vancomycin) Home Meds Home Med List reviewed: Reviewed Relevent Home Meds Not ordered & why?: aspirin, atorvastatin, celecoxib (has order for PRN ketorolac), gabapentin and lisinopril Orders not put in yet for home meds. Will reach out to provider if they are not ordered. Current Meds Current Medication Order Review: Reviewed Pharmacy Antibiotic Review Relevant Labs: Relevant Labs 11/24/24 09:55 C-Reactive Protein > 25.00 H WBC 22.40 10^3/uL (4.4-10.8) H 11/24/24 09:55 Temperature 37.7 C 0945 Pharmacy Antibiotic Activity: C/S review and Reviewed, no change Comments: Patient is on cefazolin and vancomycin, day 1, for infected right TKA. Current vancomycin dose is 1500mg q24h with predicted AUC of 554 and trough of 15.6. Ordered level for tomorrow with morning labs. Will adjust dose as needed based on results. Blood / synovial fluid cultures pending. Comments Comments/Follow Ups: Follow up with provider regarding missing home meds
[2024-11-24 15:47] VITALS: BP 121/72; PULSE 95; RESP 24; TEMP 37.5; O2SAT 96
[2024-11-24 19:16] VITALS: BP 143/79; PULSE 86; RESP 20; TEMP 37.6; O2SAT 96
[2024-11-24] MEDS: Docusate Sodium 100 MG CAP PO (20:20)
[2024-11-24] MEDS: Normal Saline Flush 10 ML SYR IVP ×2 (20:20→22:24)
[2024-11-24] MEDS: Enoxaparin 40 MG/0.4 ML SYR SC (20:20)
[2024-11-24] MEDS: VANCOMYCIN/WATER (PEG) 1.5 GM/300 ML BAG IVPB (22:24)
[2024-11-25] VITALS (22 sets, daily range): BP systolic 119–152; BP diastolic 54–91; PULSE 61–90; RESP 14–25; TEMP 35.6–37.2; O2SAT 74–97; BMI 23.1
[2024-11-25] MEDS: ceFAZolin 1 GM/50 ML BAG IVPB ×3 (03:00→19:15)
[2024-11-25] MEDS: Normal Saline Flush 10 ML SYR IVP ×3 (03:01→19:50)
[2024-11-25] MEDS: Lactated Ringers 1,000 ML 60 ML IV (06:45)
[2024-11-25 07:01] LABS: Vancomycin, Random 17.6 ug/mL
--- NOTE | 2024-11-25 07:28 | W.PM.PROGNOT ---
Date of Service Date of service: 11/25/24 Time of Service: 09:44 Assessment and Plan Assessment and plan (1) History of revision of total replacement of right knee joint: Status: Acute Assessment and plan: NPO this AM as per orthopedist Dr. Erickson Please, read notes pre-op EKG and labs ordered NPO LR as per ortho (2) Infection of prosthetic right knee joint: Status: Acute Assessment and plan: Infection about the right knee after femoral component revision. R knee site fluid Cx growing Strep agalactiae (Gp B) and staph Aureus - further results pending Will continue vancomycin to cover above Consider discontinuity cefazolin s/p - ceftriaxone would have been a first line alternative Tx to cover Strep agalactiae (Gp B) Blood Cx pending Continue dressing as per ortho (3) Pain management: Status: Acute Assessment and plan: IV acetaminophen schedule until diet is resumed s/p Sx PRN IV ketorolac- No CARYL hydromorphone 0.5 mg IVP Q2H PRN Resume oral oxycodone PRN and PRN s/p Sx when able to tolerate Continue bowel management Rx (4) Hypotension: Status: Acute Assessment and plan: Lisinopril 40 mg daily on hold x4 days re: dizziness and reported down trend in BP's Orthostatic VS negative Most likely to resume s/p Sx stable VS and Cr level No CARYL- minimal increase in BUN (5) Hyperlipidemia: Status: Acute Assessment and plan: Continue home dose statin (6) On deep vein thrombosis (DVT) prophylaxis: Status: Acute Assessment and plan: Resume LMWH 24 hours s/p SX or as per ortho Discussed with Dr. Espinal Subjective Subjective Patient reports: no new complaints, voiding w/o difficulty, bowel movement (11/24) and afebrile; denies tolerating liquids well, tolerating a regular diet, diarrhea, nausea, vomiting or shortness of breath Interval history since last seen: Reports moderate pain to right knee Exam Narrative Exam Narrative: Constitutional 89 yo male patient looking yoiuger than stated age sitting in bed , w/o acute distress Neuro:alert and oriented X4 , non-focal Resp: Unlabored breathing, clear lung bilaterally Cardio: regular rate and rhythm, S1, S2, no murmur, positive pedal pulses GI: Abdomen is not distended, soft and non tender, bowel sounds are present : Negative Costovertebral angle tenderness, no bladder distension Back/spine/Pelvis: No back tenderness, normal alignment Integumentary: no rash seen on exposed skin, and as below Extremities:R knee dressing DCI Psych: RASS 0, congruent mood and normal affect. Objective Last Vital Signs Temp 37.6 C H 11/24/24 19:16 Pulse 86 11/24/24 19:16 Resp 20 11/24/24 19:16 BP 143/79 H 11/24/24 19:16 Pulse Ox 96 11/24/24 19:16 Laboratory Results - last 24 hr 11/24/24 11/25/24 09:55 06:27 WBC 22.40 H RBC 3.51 L Hgb 11.4 L Hct 34.2 L MCV 97 H MCH 32.5 MCHC 33.3 RDW 14.8 H Plt Count 321 MPV 9.3 Sodium 137 Potassium 3.8 Chloride 101 Carbon Dioxide 26.6 Anion Gap 9.4 BUN 26 H Creatinine 1.1 Est GFR (CKD-EPI 2020) 74.50 Glucose 120 H Calcium 9.6 Total Bilirubin 0.8 AST 14 L ALT 31 Alkaline Phosphatase 72 C-Reactive Protein > 25.00 H Total Protein 7.6 Albumin 3.5 Random Vancomycin 17.6 Time Spent with Patient Time Spent with Patient: >50 minutes Time was spent: preparing to see the patient(eg.review tests), obtaining and/or reviewing separately otained hiistory, ordering medications,tests, procedures, referring, communicating with other health residential care facility manager, indepentently interpreting results, counseling the patient and care coordination
[2024-11-25] MEDS: Pantoprazole 40 MG TABCR PO (07:30)
[2024-11-25] MEDS: Docusate Sodium 100 MG CAP PO ×2 (07:30→19:49)
[2024-11-25] MEDS: Acetaminophen 325 MG TAB 650 MG PO ×2 (07:30→20:48)
--- NOTE | 2024-11-25 07:35 | PGE_ITS ---
Date of Service Date of service: 11/25/24 Time of Service: 07:15 Assessment and Plan Assessment and plan (1) Infection of prosthetic right knee joint: Status: Acute Assessment and plan: Nawaf is a 64-year-old male with an infection of his right knee prosthesis. This is an acute infection. Initial Gram stain shows gram-positive cocci in chains, likely strep organism. He had significant findings and abnormalities with his labs yesterday indicating the severity of this infection although he is systemically seemingly to do okay. He was started on antibiotics yesterday and we will plan for the operating room today for aggressive debridement, irrigation, polyethylene exchange. I once again reviewed the surgery with him in detail. I discussed the risk to include continued infection, pain, stiffness, bleeding, need for repeat procedures. Despite these risk, he elects to proceed. We will continue to follow the culture results and narrow down antibiotic treatment once we have some speciation which seems to be Streptococcus. Blood cultures are still with no growth. Subjective Subjective Interval history since last seen: Nawaf is had continued pain about the right knee although manage the current regimen. He did have some issues with IV access earlier but this seems to be stable. He has been receiving fluids since 6 AM this morning. He has been able to receive his antibiotic dosings. No other acute issues. No significant febrile events. He has been voiding spontaneously although finds mobilization very challenging. Exam Narrative Exam Narrative: Sitting up in the bed. No acute distress. Alert and orient x 3. Right lower extremity dressing is intact. Objective Last Vital Signs Temp 37.6 C H 11/24/24 19:16 Pulse 86 11/24/24 19:16 Resp 20 11/24/24 19:16 BP 143/79 H 11/24/24 19:16 Pulse Ox 96 11/24/24 19:16 Laboratory Results - last 24 hr 11/24/24 11/25/24 09:55 06:27 WBC 22.40 H RBC 3.51 L Hgb 11.4 L Hct 34.2 L MCV 97 H MCH 32.5 MCHC 33.3 RDW 14.8 H Plt Count 321 MPV 9.3 Sodium 137 Potassium 3.8 Chloride 101 Carbon Dioxide 26.6 Anion Gap 9.4 BUN 26 H Creatinine 1.1 Est GFR (CKD-EPI 2020) 74.50 Glucose 120 H Calcium 9.6 Total Bilirubin 0.8 AST 14 L ALT 31 Alkaline Phosphatase 72 C-Reactive Protein > 25.00 H Total Protein 7.6 Albumin 3.5 Random Vancomycin 17.6 Time Spent with Patient Time Spent with Patient: <25 minutes Time was spent: preparing to see the patient(eg.review tests), indepentently i nterpreting results and counseling the patient
--- NOTE | 2024-11-25 08:30 | NUR.NOTE ---
Pt is a/o x 4 and able to make needs known. Pt reports a 7/10 pain level but refusing stronger pain meds and only wants the Tylenol dose. Tylenol administered. Pt's IV to left wrost is patent and LR is running at 60cc/hr without issues. Pt is scheduled for surgical clean out of R TKA infection. He is on clear fluids until 0800 and then NPO. Surgery scheduled for around 1330. Vanco trough this am was 17.6. Next dose scheduled for 1000. Lung sounds are clear and bowels sounds are present. Bandage to R knee incision is clean dry and intact. All patients questions were answered. Will continue with plan of care
--- NOTE | 2024-11-25 09:25 | ANES.PREOP_ITS ---
General Info Date of Service Date Performed: 11/25/24 Height: 5 ft 7 in Weight: 66.9 kg Body Mass Index (BMI): 23.1 Surgical Procedure: Operation Date: 11/25/24 15:10 Proposed Procedure Side Surgeon p Knee Polyethylene Exchange/Synovectomy Right Juanjose Erickson MD Meds Allergies and Home Medications Allergies Allergy/AdvReac Type Severity Reaction Status Date / Time No Known Allergies Allergy Verified 11/24/24 08:08 Home Medication ?Medication ?Instructions ?Recorded atorvastatin 10 mg tablet 10 mg PO DAILY 10/10/22 lisinopril 40 mg tablet 40 mg PO DAILY 11/07/23 acetaminophen 500 mg tablet 1,000 mg (2 x 500 mg) PO Q8H PRN 11/11/24 pain #90 tabs aspirin 81 mg tablet,delayed 81 mg PO BID 30 days #60 tabs 11/11/24 release celecoxib 200 mg capsule (Celebrex) 200 mg PO BID PRN #60 caps 11/11/24 docusate sodium 100 mg capsule 100 mg PO BID #30 caps 11/11/24 (Colace) gabapentin 300 mg capsule 300 mg PO QHS #14 caps 11/11/24 oxycodone 5 mg tablet 5 mg PO Q4H PRN #18 tabs 11/11/24 pantoprazole 40 mg tablet,delayed 40 mg PO DAILY #14 tabs 11/11/24 release Current Visit Medications: Current Medications Generic Name Dose Route Start Last Admin Trade Name Freq PRN Reason Stop Dose Admin Acetaminophen 650 mg 11/24/24 12:00 11/25/24 07:30 Acetaminophen 325 Mg Tab PO 650 mg QID ZANDRA Administration Docusate Sodium 100 mg 11/24/24 20:00 11/25/24 07:30 Docusate Sodium 100 Mg Cap PO 100 mg BID ZANDRA Administration Enoxaparin Sodium 40 mg 11/24/24 20:00 11/24/24 20:20 Enoxaparin 40 Mg/0.4 Ml Syr SC 40 mg QPM ZANDRA Administration Hydromorphone HCl 0.5 mg 11/24/24 11:30 Hydromorphone 2 Mg/Ml Syr IVP Q2H PRN PRN Cefazolin Sodium/Dextrose 1 gm in 50 mls @ 100 mls/hr 11/24/24 10:00 11/25/24 03:43 Ancef Duplex IVPB Infused Q8H ZANDRA Infusion Ringer's Solution 1,000 mls @ 60 mls/hr 11/25/24 06:00 11/25/24 06:45 IV 60 mls/hr INFUSION ZANDRA Administration Vancomycin HCl 1,250 mg/ 250 mls @ 166.667 mls/hr 11/25/24 10:00 Sodium Chloride IVPB Q24H [facility] IV Miscellaneous Supplies 1 each 11/24/24 09:15 Iv Access IV DIRECTED [facility] Ketorolac Tromethamine 15 mg 11/24/24 11:30 Ketorolac 15 Mg/Ml Vial IVP 11/29/24 11:29 Q6H PRN PRN Oxycodone HCl 5 mg 11/24/24 11:30 Oxycodone 5 Mg Tab PO Q4H PRN PRN Pantoprazole Sodium 40 mg 11/25/24 07:30 11/25/24 07:30 Pantoprazole 40 Mg Tabcr PO 40 mg DAILY@0730 ZANDRA Administration Sodium Chloride 0 ml 11/24/24 09:15 11/25/24 03:01 Normal Saline Flush 10 Ml Syr IVP 20 ml PRN PRN Administration Sodium Chloride 0 ml 11/24/24 20:00 11/25/24 07:32 Normal Saline Flush 10 Ml Syr IVP 10 ml BID ZANDRA Administration Sodium Chloride 0 ml 11/24/24 09:15 Normal Saline 10 Ml Vial IJ DIRECTED PRN PFSH Active Problems Active Problems: Problem Status Onset Code Infection of prosthetic right knee joint Acute T84.53XA History of revision of total replacement of right knee joint Acute 11/11/24 Z96.651 Femoroacetabular impingement of right hip Acute M25.851 Encounter for screening colonoscopy Acute Z12.11 Surgical wound breakdown Acute T81.31XA History of total left hip arthroplasty Acute ~11/20/23 Z96.642 Painful total knee replacement, right Resolved T84.84XA, Z96.651 History of total right knee replacement Acute 01/16/23 Z96.651 Arthritis of left knee Acute M17.12 Carotid bruit Acute R09.89 Hyperlipidemia Acute E78.5 Hypertension Chronic I10 Medical History Medical History Hx of hyperlipidemia Hx of essential hypertension Eczema Surgical History Surgical History History of colonoscopy (~05/2024) History of left hip replacement History of total right knee replacement (TKR) Status post total replacement of right shoulder History of arthroscopy of right knee Hx of appendectomy Tobacco Smoking/Tobacco Use Status: Never Alcohol Alcohol Intake: current Alcohol intake frequency: a few times a week Alcohol type: beer Substance Use Substance use: Never Substance use type: does not use Vital Signs and Lab Results Vital Signs Most Recent Vital Signs in EMR: Most Recent Vital Signs Temp Pulse Resp BP Pulse Ox 37.2 C 84 18 132/83 96 11/25/24 08:08 11/25/24 08:08 11/25/24 08:08 11/25/24 08:08 11/25/24 08:08 Lab Results 11/24/24 09:55 11/24/24 09:55 Blood Type / Crossmatch: 2 No Data to Display Complete Blood Count: 2 White Blood Count 22.40 10^3/uL (4.4-10.8) H 11/24/24 09:55 Red Blood Count 3.51 10^6/uL (4.36-5.78) L 11/24/24 09:55 Hemoglobin 11.4 g/dL (13.5-17.5) L 11/24/24 09:55 Hematocrit 34.2 % (40.0-50.0) L 11/24/24 09:55 Platelet Count 321 10^3/uL (130-400) 11/24/24 09:55 Complete Metabolic Panel: 2 Sodium 137 mmol/L (136-145) 11/24/24 09:55 Potassium 3.8 mmol/L (3.5-5.1) 11/24/24 09:55 Chloride 101 mmol/L (98-107) 11/24/24 09:55 Carbon Dioxide 26.6 mmol/L (21.0-32.0) 11/24/24 09:55 BUN 26 mg/dL (7-18) H 11/24/24 09:55 Creatinine 1.1 mg/dL (0.70-1.30) 11/24/24 09:55 Est GFR (CKD-EPI 2020) 74.50 (mL/min/1.73m2) 11/24/24 09:55 Calcium 9.6 mg/dL (8.5-10.1) 11/24/24 09:55 Albumin 3.5 g/dL (3.4-5.0) 11/24/24 09:55 Glucose 120 mg/dL (74-106) H 11/24/24 09:55 C-Reactive Protein > 25.00 mg/dL (<or=0.5) H 11/24/24 09:55 Liver Function Panel: 2 Alanine Aminotransferase (ALT/SGPT) 31 U/L (16-63) 11/24/24 09: 55 Aspartate Amino Transf (AST/SGOT) 14 U/L (15-37) L 11/24/24 09: 55 Coagulation Panel: 2 No Data to Display Cardiac Panel: 2 No Data to Display Arterial Blood Gas: 2 No Data to Display Venous Blood Gas: 2 No Data to Display Pancreas Panel: 2 No Data to Display Thyroid Panel: 2 No Data to Display Infectious Disease: 2 No Data to Display Blood Cultures: 2 No Data to Display Toxicology Panel: 2 No Data to Display Imaging and Studies Imaging and Studies Study information below may be from another EMR and interpreted by another provider. Please see original notes in EMR for more complete details. Carotid Artery Summary:: Patient Name: Venkatesh Lua #: [id number]: SILVER Ordering Provider: Juanjose Erickson M.D. : [facility] Primary Care Provider: Cy Valle M.D.Date of Exam: 01/11/23Sex: M Admission Date: 01/11/23 : 1960 Age: 62 Exam(s) US CAROTID CLINICAL HISTORY: preop R09.89 SYMPTOMS CIRCULATORY AND RESPIRATORY SYSTEMS, CAROTID BRUIT. On the left side there is noncalcified plaque in the distal left CCA-carotid bulb. No elevated velocities at level but estimated at 50 percent stenosis. Higher velocities are noted in the proximal left external carotid artery registering at 250cm/sec, of questionable clinical significance. Velocities in the mid and upper left internal carotid artery in the neck are within normal limits. On the right side there is some noncalcified plaque at the carotid bulb and proximal right ICA both out significantly elevated velocities.. Amount of stenosis approximately 30 percent. No significantly elevated velocities in the proximal external carotid artery on this side. \ Anesthesia Assessment and Plan Anesthesia History Personal History: No History of Anesthesia Complications Family History: No Family History of Anesthesia Complications Exercise Tolerance Exercise Tolerance: Metabolic Equivalents>4 Pertinent Negatives Pertinent Negatives: No Symptoms of GERD Cardiac & Pulmonary Exam Cardiac Exam: Normal S1/S2 Heart Sounds Pulmonary Exam: Clear Bilateral Breath Sounds Implantable Cardiac Device Does patient have a Pacemaker or an ICD?: No Airway Exam Known Difficult Airway: No Mallampati Class: 2 Mouth Opening: Normal (> 3cm) Thyromental Distance: Greater than 3 cm Neck Range of Motion: Full ROM Neck Circumference: Normal Teeth Condition: Normal Dentition ASA Classification ASA Score: ASA 2 Emergency Case?: No NPO Status NPO Status: NPO Clears >2 hours, Solids >8 hours Anesthesia Plan Resuscitation Status: Full Code Anesthesia Technique: Spinal Anesthesia Airway Planned: Natural Airway Pain Management: Surgeon and patient request nerve block Monitors Used: Standard Monitors
--- NOTE | 2024-11-25 09:25 | PDOC.CMIN ---
Date of service: 11/25/24 Time of Service: 09:25 Care Management Initial Assmt Initial Assessment Reason for Hospitalization: Infected TKR Functional Status/Living Situation Patient Presentation: Nawaf was sitting up in bed visiting with his when CM met with him. He was pleasant in interaction and agreeable to conversation. Nawaf lives in a single family home in [place]. His has a home in [place] and they are in the process of combining households.He has 2 children who live in [place], [place]. 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 He does not receive any community services however he does use a walker at this time. Nawaf had a total knee revision 2 weeks ago and it became infected. It is growing Group B Strep and S. Aureus per provider. Nawaf has been told that it is possible he may need IV antibiotics for as long as 6 weeks. CM reviewed the various options for prolonged IV AB therapy including swing bed, home infusion and [facility]. Nawaf and Vale indicated a preference for home infusion if possible.. Nawaf does not have advanced directives and expressed interest in completing them during this hospital stay. CM provided both Nawaf and Vale with a blank copy and will facilitate their completion. Town of Residence: [place] Resides with: Spouse ( Anel) Significant Other/Family: Local Employment Status: Employed ([employer]- Administration) Instrumental Activities of Daily Living (ADLs): Independent Medications Medication Management: No Issues/Barriers identified Physical Functioning/Mobility Assistive Device: walker Advance Directives Advance Directives: Do you have an Advance Directive: N 08/20/23 12:32 AD On File at [facility]: N 08/20/23 12:32 Date Asked 11/24/24 11/24/24 09:24 AD Date Reviewed COLST On File at [facility] COLST Date Scanned Code Status Resuscitation Status Full Code Insurance Coverage/Financial Issues Insurance: CBA Care Team Visit Care Team Role Provider Type Deepika Reynaga Primary Care Provider NON-[facility] STAFF PHYSICIAN Juanjose Erickson MD Admit Provider [facility] STAFF PHYSICIAN Attending Provider Discharge Potential Discharge Needs: Surgical F/U Appt Anticipated Barriers to Discharge: None Identified Patient/Family Education Needs: Review discharge instructions, discuss Ask Me Three Transportation: Private vehicle Plan: Anticipate Nawaf will be discharged home when medically cleared. He will follow up with his community providers and plan of care as prescribed and transport with family. CM will follow and continue to assess for discharge concerns. Social Determinants of Health Screening Social Determinants of health last assessed in clinic: 11/25/24 Will the Patient Participate in the Screening?: Yes Do you worry about having a steady place to live?: no Problems where you live: no known problems In the past 12 months, have you had to go without electric, gas, oil or water in your home?: no 1. Within the past 12 months, we worried whether our food would run out before we got money to buy more.: Never true 2. Within the past 12 months, the food we bought just didn't last and we didn't have money to get more.: Never true Has lack of transportation kept you from medical appointments or from doing things needed for daily living?: no Has anyone in your life made you feel unsafe or unsupported?: no How hard is it for you to pay for the very basics like food, housing, medical care, and heating? Would you say it is:: Not hard at all Do you want help finding or keeping work or a job?: I do not need or want help If for any reason you need help with day-to-day activities such as bathing, preparing meals, shopping, managing finances, etc., do you get the help you need?: I don?t need any help How often do you feel lonely or isolated from those around you?: Never Do you speak a language other than [place] at home?: No Does the patient want assistance with any of the above?: No PFSH All Active Problems (Updated 11/25/24 @ 11:18 by Genevieve Shetty APRN) Pain management (Acute) On deep vein thrombosis (DVT) prophylaxis (Acute) Hypotension (Acute) Infection of prosthetic right knee joint (Acute) History of revision of total replacement of right knee joint (Acute 11/11/24) Femoral component Femoroacetabular impingement of right hip (Acute) Encounter for screening colonoscopy (Acute) Surgical wound breakdown (Acute) History of total left hip arthroplasty (Acute ~11/20/23) History of total right knee replacement (Acute 01/16/23) Arthritis of left knee (Acute) Steroid injection: 01/16/2023; 07/02/23 Carotid bruit (Acute) Hyperlipidemia (Acute) Hypertension (Chronic) Medical History Hx of hyperlipidemia Hx of essential hypertension Eczema Surgical History History of colonoscopy (~05/2024) History of left hip replacement 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
[2024-11-25] MEDS: VANCOMYCIN 1,250 MG in Normal Saline 250 ML 166.667 MG IVPB (10:11)
--- NOTE | 2024-11-25 11:00 | RT.EKG_ITS ---
APPROVED REPORT Exam: Resting ECG Reason for Exam: pre-op Patient Location: I HR:87 bpm ECG Measurements Heart Rate 87 AXIS MD 170 P -8 QRSd 68 QRS 23 QT 343 T 6 QTc 413 Conclusion Sinus rhythm...normal P axis, V-rate 50- 99 Multiple ventricular premature complexes...V complexes w/ short R-R intervls Otherwise normal ECG
[2024-11-25 11:40] LABS: Lactate 0.8 mmol/L (<or=2.0)
[2024-11-25 11:53] LABS: PTT Activated 30.8 sec (20.6-30.2); Prothrombin Time 9.7 sec (9.1-11.1)
[2024-11-25] MEDS: Lactated Ringers 1,000 ML 30 ML IV (13:30)
[2024-11-25] MEDS: TRANEXAMIC ACID/SOD. CHL. 1,000 MG/100 ML BAG 600 MG (13:50)
[2024-11-25] MEDS: Hydrogen Peroxide 3% 480 ML BTL (14:12)
--- NOTE | 2024-11-25 14:12 | W.ANESNERVE ---
Nerve Block Single Injection Procedure Date and Time Date Performed: 11/25/24 Procedure Start: 13:16 Location Where Procedure Performed Procedure Location: PACU Reason Performed: Postoperative Analgesia Requesting Provider: Juanjose Erickson Timeout Performed Timeout Performed: Yes Monitoring Used ECG, Blood Pressure and SpO2 Sterility Sterility: Hand Hygiene, Surgical Cap, Surgical Mask, Sterile Gloves and Chlorhexidine Sedation Given During Procedure Sedation Given (Indicate Dose Given): No Sedation given Patient Mental Status Patient Mental Status: Awake Nerve Block 1st Nerve Block: Laterality: Right Block Type: Adductor Canal Ultrasound Image Saved?: Yes Needle / Catheter Used: 100mm SonoPlex II Local Anesthetic Bolus (Indicate Dose Given): Lidocaine used for local infiltration of skin, Injected in 3-5ml increments after negative blood aspiration, Bupivacaine 0.25% Dose:: 10ml and Exparel Dose:: 10ml Additives (Indicate Dose Given): None Ultrasound: Sterile probe cover and gel used Nerve Stimulator: Not Used Paresthesia: None Procedure Tolerated: No Complications and Patient tolerated well Procedure Outcome: Successful Procedure Comment: Straight forward block, no discomfort. Performed By: Oscar Cotter
--- NOTE | 2024-11-25 14:46 | MCONE_ITS ---
<Statement entered by Enoc Espinal - 11/25/24 18:18> Discussed with Genevieve Shetty and Dr. Erickson. Continue cefazolin with vancomycin until sensitivities back as better coverage in setting of infected prosthetic joint. If MSSA as expected, transition to ceftriaxone only to cover GBS and MSSA. Date of service: 11/25/24 Time of Service: 09:44 Assessment and Plan Assessment and plan (1) Sepsis: Status: Acute Assessment and plan: Sepsis criteria met with WBC 12.5 , tachycardia HR 95 and tachypnea RR 25 with source: As per point 3 (2) History of revision of total replacement of right knee joint: Status: Acute Assessment and plan: NPO this AM as per orthopedist Dr. Erickson Please, read notes pre-op EKG and labs ordered NPO LR as per ortho (3) Infection of prosthetic right knee joint: Status: Acute Assessment and plan: Infection about the right knee after femoral component revision. R knee site fluid Cx growing Strep agalactiae (Gp B) and staph Aureus - further results pending Will continue vancomycin to cover above Consider discontinuity cefazolin s/p surgery and culture results - ceftriaxone would have been a first line alternative Tx to cover Strep agalactiae (Gp B) Blood Cx pending Continue dressing as per ortho (4) Pain management: Status: Acute Assessment and plan: IV acetaminophen schedule until diet is resumed s/p Sx PRN IV ketorolac- No CARYL hydromorphone 0.5 mg IVP Q2H PRN Resume oral oxycodone PRN and PRN s/p Sx when able to tolerate Continue bowel management Rx (5) Hypotension: Status: Acute Assessment and plan: Lisinopril 40 mg daily on hold x4 days re: dizziness and reported down trend in BP's Orthostatic VS negative Most likely to resume s/p Sx stable VS and Cr level No CARYL- minimal increase in BUN (6) Hyperlipidemia: Status: Acute Assessment and plan: Continue home dose statin (7) On deep vein thrombosis (DVT) prophylaxis: Status: Acute Assessment and plan: Resume LMWH 24 hours s/p SX or as per ortho Discussed with Dr. Espinal History of Present Illness History of Present Illness Chief Complaint: Infection s/p to the right knee after femoral component revision Narrative: This 64 years old male patient with a PMHx of hyperlipidemia, hypertension presented to the ED for evaluation of right knee infection s/p recent femoral component revision after been seen by orthopedic services outpatient with initial Gram stain of fluid from R knee aspiration grew gram-positive cocci in chains.The patient was admitted to the medical surgical floor for IV antibiotics and R knee replacement on 11/25/2024. Medical consultation requested by orthopedic services. the patient presented with normotension, tachycardia HR 95 and tachypnea RR 25. Blood work showed WBC 12.5, CRp > 25 K, lactic was negative w/o other actionable findings. Imaging was negative for fracture, lessening of hardware or osteomyelitis. PFSH All Active Problems (Updated 11/25/24 @ 16:40 by Genevieve Shetty APRN) Sepsis (Acute) Pain management (Acute) On deep vein thrombosis (DVT) prophylaxis (Acute) Hypotension (Acute) Infection of prosthetic right knee joint (Acute) History of revision of total replacement of right knee joint (Acute 11/11/24) Femoral component Femoroacetabular impingement of right hip (Acute) Encounter for screening colonoscopy (Acute) Surgical wound breakdown (Acute) History of total left hip arthroplasty (Acute ~11/20/23) History of total right knee replacement (Acute 01/16/23) Arthritis of left knee (Acute) Steroid injection: 01/16/2023; 07/02/23 Carotid bruit (Acute) Hyperlipidemia (Acute) Hypertension (Chronic) Medical History Hx of hyperlipidemia Hx of essential hypertension Eczema Surgical History History of colonoscopy (~05/2024) History of left hip replacement 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 Results Last Vital Signs Temp 37.2 C 11/25/24 08:08 Pulse 79 11/25/24 10:17 Resp 18 11/25/24 08:08 BP 144/84 H 11/25/24 10:17 Pulse Ox 96 11/25/24 08:08 Labs 11/24/24 09:55 11/24/24 09:55 Labs: Laboratory Results - last 24 hr 11/25/24 11/25/24 06:27 11:30 PT 9.7 INR 1.0 APTT 30.8 H VBG Lactate 0.8 Random Vancomycin 17.6
--- NOTE | 2024-11-25 15:42 | ROE_ITS ---
Operative Note Operative Note PRE-OP DIAGNOSIS: Right Prosthetic Knee Infection POST-OP DIAGNOSIS: same PROCEDURE: Irrigation and debridement with polyethylene exchange of the right knee. Blessing dressing application?right knee SURGEON: Juanjose Erickson NATIONAL COVERAGE SPECIALIST: Peri Paniagua ANESTHESIA TYPE: Spinal Refer to Anesthesia Record ESTIMATED BLOOD LOSS: 200 PATHOLOGY: other (Aerobic and Anaerobic cultures sent) TOURNIQUET TIME: 0 COMPLICATIONS: None Patient was transported to: PACU Patient's condition: stable Implants: Depuy CRS/PS 8x10mm poly Indications: Nawaf is a 64-year-old who underwent revision arthroplasty of his femoral component approximate 2 weeks ago. He started having some drainage on postop day #7 which then developed unfortunately into a fulminant infection about the right knee, confirmed with laboratory findings and aspiration. Therefore, I recommended proceeding urgently to the operating room for irrigation debridement of the right knee with component retention. I reviewed this with him in the office as well as in the hospital. I discussed the risk to include bleeding, pain, stiffness, continued infection, weakness, damage to muscles and tendons, need for repeat procedures, blood clot. Despite these risk, he elects to proceed. Findings: There was gross purulence seen throughout the knee above the joint capsule and below it. There was purulent material leaking through the arthrotomy repair at the level of the mid patella through the distal aspect of the quadriceps. Procedure Description: Nawaf was greeted in the preoperative holding area where the correct side was identified and marked. The consent was reviewed with the patient and signed. An adductor canal block was then administered by the anesthesia team in the PACU. Nawaf was taken back to the operating room. A spinal anesthestic was administered. The patient was placed into the supine position on the operating room table. Posts were placed for positioning during the procedure. All bony prominences were well padded. Prophylactic antibiotics in the form of Cefazolin were administered. 1 g of tranexamic acid was also given. The right leg was then prepped with Chloraprep and draped in a standard fashion with impervious stockinette. A second prep with Chloraprep was performed prior to application of Iodine impregnated skin protection. A timeout to confirm correct identity, side and site, procedure, allergies, anesthesia, and medical concerns was performed. With the knee in some flexion, a midline incision was made overlying the knee utilizing the previous incision. I excised the skin edges over the distal two thirds where there was some opening in various locations. Immediately upon cutting into the skin there is a jaimes of purulent material. This was drained. Full-thickness skin flaps were then elevated with blunt dissection primarily. There there is significant formation seen throughout the soft tissues. The incision was opened fully and extended approximately 1 to 2 cm in both proximal and distal directions. Prior to entering into the joint capsule I then performed a debridement utilizing rongeur and curette. I removed any grossly necrotic material with a rongeur. I then used a curette to scrape all the surfaces of the knee to remove any film or tissue. There was seen a small defect through which purulent material was coming from the joint around the superior pole of the patella. After the completion of the debridement I then irrigated this compartment of the knee with a liter of normal saline with pulse lavage, once again utilizing a rongeur remove any loose or necrotic pair material. Sutures from the deep dermal and skin were also removed. Attention was then turned to the deeper portion of the knee. The arthrotomy was easily opened through the previous site. FiberWire suture as well as the STRATAFIX suture was removed and the arthrotomy easily opened. This was extended slightly proximal for better exposure. There was gross purulence within the knee. A culture from deep within the notch of aerobic and anaerobic was then sent to the lab. Given the duration, only 2 weeks, from the initial surgery there was actually very little separate synovial layer. Therefore I was unable to excise this is typically done in a more chronic situation. However, utilized once again a curette and rongeur to remove any necrotic or appearing tissue. I used a rongeur to remove any loose or necrotic tissue and the curette to debride the undersurface of the retinaculum arthrotomy as well as all the periosteal tissues. This was aggressively done throughout the entirety of the knee. A single smooth pin was placed into the tibial tubercle to prevent any release of the patellar ligament. The medial subperiosteal peel dissected itself and there was notable lack of attachment of these medial soft tissues against the proximal?medial tibia. The knee was then brought up into flexion and using a curved osteotome I was able to remove the polyethylene. With the polyethylene removed and then continued to debriding the medial lateral gutters as well as the posterior capsular tissues utilizing a curette and rongeur. Once this debridement seem to be completed I then used 3 L normal saline to irrigate the entire knee with pulse lavage. After this lavage was completed repeat debridement was performed. The knee was fully inspected for any areas of necrosis. The arthrotomy edges were debrided with a curette. All the soft tissues in and around the knee were debrided and inspected once again until felt confident there was no other necrotic tissue remaining. A brief irrigation with normal saline was once again performed remove any remaining debris from this most recent debridement. I then irrigated the wound with 3% hydroperoxide. This was mixed with surgery for Betadine solution. This allowed to sit in the knee for approximately 3 minutes. This was then suctioned and rinsed with normal saline. Once all sign of the Betadine and hydroperoxide was removed I then repeated the irrigation with Betadine solution for another 3 minutes. This was then irrigated out with normal saline. At this point gloves were changed and clean instruments were utilized which had been prepared and ready on the back table. A new drape was placed around the knee. From this point forward only clean, unused, instruments were utilized. The knee was inspected and it showed no signs of necrotic or diseased tissue. Saline was rinsed of the knee once again to make sure there is no remnant Betadine solution left behind. The knee was then brought up into flexion and the DePuy CRS posterior stabilized 8 x 10 mm polyethylene was then inserted without significant difficulty. It was confirmed to be appropriately positioned onto the tibial tray. With the knee in some flexion, the arthrotomy and quadriceps split was repaired utilizing an antimicrobial #1 PDS. This was done in interrupted fashion using [id number] and simple sutures. Before placing all the sutures, 1 g of vancomycin powder was placed into the soft tissues within the knee capsule. The tissue around the patella was thickened, woody, and difficult to work with and the quadriceps took a significantly lateral based position. I was able to close this with the #1 PDS and without any significant gapping of the arthrotomy site tested up to about 90 degrees of flexion. The arthrotomy was closed completely. Deep tissues were then reapproximated with 0 PDS and 2-0 PDS. The skin was closed with a running 3-0 Monocryl in a subcuticular fashion. A blessing negative pressure wound dressing was then applied to assist with wound healing and fluid management. A foot to thigh Mehran wrap was placed. A CryoCuff was applied. Nawaf was transferred to the hospital bed without difficulty and suffering no apparent complication. Nawaf has a gaurded prognosis. We will continue with broad-spectrum antibiotics of cefazolin and vancomycin and to continue to follow the cultures. Enoxaparin 40 mg subcutaneous will be utilized for blood clot prevention prior to discharge. Date of Procedure: 11/25/24
[2024-11-25 17:28] LABS: Absolute Basophil Count 0.03 10^3/uL (0.0-0.2); Absolute Eosinophil Count 0.02 10^3/uL (0.0-0.7); Absolute Lymphocyte Count 0.25 10^3/uL (1.2-3.4); Absolute Monocyte Count 0.47 10^3/uL (0.1-0.8); Absolute Neutrophil Count 14.66 10^3/uL (1.2-6.7); Basophils % 0.2 %; Eosinophils % 0.1 %; HGB 10.6 g/dL (13.5-17.5); Immature Grans % 1.3 %; Lymphocytes % 1.6 %; MCHC 32.1 % (32.0-36.0); MCV 100 fL (80-95); MPV 9.6 fL (8.0-11.0); Neutrophils % 93.8 %; Platelet Count 295 10^3/uL (130-400); RBC 3.31 10^6/uL (4.36-5.78); RDW 14.6 % (11.8-14.1); RDW-SD 53.6 fL; WBC 15.63 10^3/uL (4.4-10.8)
[2024-11-25 17:41] LABS: Magnesium 2.1 mg/dL (1.8-2.4)
--- NOTE | 2024-11-25 17:57 | W.ANESPOSTOP ---
Postoperative Evaluation Date, Time and Location Date Performed: 11/25/24 Time Performed: 17:05 Patient Location: PACU Vital Signs Most Recent Imported Vital Signs: Most Recent Vital Signs Temp Pulse Resp BP Pulse Ox 36.7 C 76 14 136/91 H 97 11/25/24 17:21 11/25/24 17:21 11/25/24 17:21 11/25/24 17:21 11/25/24 17:21 Pain Score Most Recent Pain Score: Most Recent Pain Score Pain Level [Right Knee] 7 11/25/24 08:13 Pain Level 0 11/25/24 16:36 Assessment Mental Status: Awake (Alert & Oriented to Patient Baseline) Airway and Respiratory Function: Patent airway with normal (patient baseline) respiratory exam Cardiovascular Function: Hemodynamically Stable Hydration Status: Adequately Hydrated Nausea & Vomiting: No Nausea or Vomiting Pain: Pt. Denies Any Pain Peripheral Nerve Block: Regional nerve block not resolved at time of post operative discharge
[2024-11-26] MEDS: ceFAZolin 1 GM/50 ML BAG IVPB ×3 (02:32→20:57)
[2024-11-26] MEDS: Normal Saline Flush 10 ML SYR IVP ×3 (02:33→20:57)
[2024-11-26 06:40] LABS: HCT 30.9 % (40.0-50.0); MCH 32.4 pg (27.0-33.0); MCHC 32.4 % (32.0-36.0); MCV 100 fL (80-95); MPV 9.7 fL (8.0-11.0); Platelet Count 322 10^3/uL (130-400); RBC 3.09 10^6/uL (4.36-5.78); RDW 14.1 % (11.8-14.1); RDW-SD 52.2 fL; WBC 14.59 10^3/uL (4.4-10.8)
[2024-11-26 06:51] LABS: Anion Gap 8.4 mmol/L (3-11); BUN 23 mg/dL (7-18); CO2 26.6 mmol/L (21.0-32.0); CREATININE 0.9 mg/dL (0.70-1.30); Calcium 9.2 mg/dL (8.5-10.1); Chloride 108 mmol/L (98-107); Estimated GFR 94.78 (mL/min/1.73m2); Glucose 152 mg/dL (74-106); Potassium 4.2 mmol/L (3.5-5.1); Sodium 143 mmol/L (136-145)
--- NOTE | 2024-11-26 07:11 | W.PM.PROGNOT ---
Date of Service Date of service: 11/26/24 Time of Service: 07:30 Assessment and Plan Assessment and plan (1) Infection of prosthetic right knee joint: Status: Acute Assessment and plan: Nawaf is postop day #1 status post irrigation and debridement and polyethylene exchange for infected right knee replacement. He feels much better. His vitals been stable. He currently has Staph aureus and group B strep growing in his cultures. Will continue vancomycin and cefazolin for now but likely transition to ceftriaxone assuming he does not have MRSA, initial screen being negative. I have also started him on rifampin to help with biofilm degradation in the setting of Staph aureus and retained components. I did advise him that this can make body fluid excretions, urine and tears, turn orange. I appreciate hospitalist involvement and he will resume his lisinopril. Continue to follow the cultures and likely narrowed down to ceftriaxone tomorrow with hopeful discharge to home with home health services and IV antibiotics. Plan for PICC line placement later today. Subjective Subjective Interval history since last seen: Overall Nawaf feels pretty good. He was able to mobilize last night and this morning with much less pain than he had prior to this surgery. He denies any fevers or chills. Denies any chest pain shortness of breath. No issues with his IV. Cultures are growing Staph aureus as well as group B strep. Hemoglobin did drop down to 10 but currently without symptoms. Exam Narrative Exam Narrative: Sitting up in the chair. No acute distress. Alert and orient x 3. Right lower extremity dressing is clean dry and intact. He is able to actively demonstrate straight leg raise as well as ankle dorsiflexion and plantarflexion, great toe extension and flexion. Sensation intact to light touch over the deep and superficial peroneal nerve and tibial nerve. Objective Last Vital Signs Temp 36.5 C 11/25/24 23:43 Pulse 61 11/25/24 23:43 Resp 17 11/25/24 23:43 BP 119/79 11/25/24 23:43 Pulse Ox 97 11/25/24 23:43 Laboratory Results - last 24 hr 11/25/24 11/25/24 11/26/24 11:30 17:15 06:10 WBC 15.63 H 14.59 H RBC 3.31 L 3.09 L Hgb 10.6 L 10.0 L Hct 33.0 L 30.9 L MCV 100 H 100 H MCH 32.0 32.4 MCHC 32.1 32.4 RDW 14.6 H 14.1 Plt Count 295 322 MPV 9.6 9.7 Immature Gran % 1.3 Neutrophils % 93.8 Lymphocytes % 1.6 Monocytes % 3.0 Eosinophils % 0.1 Basophils % 0.2 Nucleated RBC % 0.0 Absolute Neutrophils 14.66 H Absolute Lymphocytes 0.25 L Absolute Monocytes 0.47 Absolute Eosinophils 0.02 Absolute Basophils 0.03 PT 9.7 INR 1.0 APTT 30.8 H VBG Lactate 0.8 Sodium 143 Potassium 4.2 Chloride 108 H Carbon Dioxide 26.6 Anion Gap 8.4 BUN 23 H Creatinine 0.9 Est GFR (CKD-EPI 2020) 94.78 Glucose 152 H Calcium 9.2 Magnesium 2.1 Objective Narrative Objective Narrative: Laboratory Results - last 24 hr 11/25/24 11/26/24 17:15 06:10 WBC 15.63 H 14.59 H RBC 3.31 L 3.09 L Hgb 10.6 L 10.0 L Hct 33.0 L 30.9 L MCV 100 H 100 H MCH 32.0 32.4 MCHC 32.1 32.4 RDW 14.6 H 14.1 Plt Count 295 322 MPV 9.6 9.7 Immature Gran % 1.3 Neutrophils % 93.8 Lymphocytes % 1.6 Monocytes % 3.0 Eosinophils % 0.1 Basophils % 0.2 Nucleated RBC % 0.0 Absolute Neutrophils 14.66 H Absolute Lymphocytes 0.25 L Absolute Monocytes 0.47 Absolute Eosinophils 0.02 Absolute Basophils 0.03 Sodium 143 Potassium 4.2 Chloride 108 H Carbon Dioxide 26.6 Anion Gap 8.4 BUN 23 H Creatinine 0.9 Est GFR (CKD-EPI 2020) 94.78 Glucose 152 H Hemoglobin A1c 5.5 Calcium 9.2 Magnesium 2.1 Time Spent with Patient Time Spent with Patient: 25-34 minutes Time was spent: preparing to see the patient(eg.review tests), ordering medications,tests, procedures, counseling the patient and care coordination
[2024-11-26 07:38] VITALS: BP 130/85; PULSE 78; RESP 13; O2SAT 98
[2024-11-26] MEDS: Acetaminophen 325 MG TAB 650 MG PO ×4 (08:03→20:56)
[2024-11-26] MEDS: Docusate Sodium 100 MG CAP PO ×2 (08:06→20:57)
[2024-11-26] MEDS: Enoxaparin 40 MG/0.4 ML SYR SC (08:12)
[2024-11-26] MEDS: Famotidine 20 MG TAB PO (08:19)
--- NOTE | 2024-11-26 08:51 | CMPROGNOTE_ITS ---
Date of service: 11/26/24 Time of Service: 08:51 Care Management Progress Note Progress Note Text Progress Note Text: Nawaf was sitting up in bed visiting with his Anel when CM met with him. He stated that he is feeling pretty good, better than yesterday. When asked, Nawaf explained that stated he would likely need 6 weeks of IV antibiotics, although depending on progress, it may be shorter. The final antibiotic regimen has not been determined as the report for the susceptibilities for the bacteria in the wound is not yet available. Referrals were sent to both [facility] and [facility] for quotes. The report of the PICC insertion will be sent when available. The procedure is scheduled for around 4pm today. CM offered to complete the Advanced Directives with Nawaf and Vale today but they reported they had not had a chance to review the documents. These will be addressed on Sunday. Discharge Potential Discharge Needs: Surgical F/U Appt Anticipated Barriers to Discharge: Medical Status Patient/Family Education Needs: Review discharge instructions, discuss Ask Me Three Transportation: Private vehicle Plan: Anticipate Nawaf will be discharged home when medically cleared. He will have home IV antibiotic infusions, likely with Rocephin. Orders have been sent to both [facility] and [facility] and CM is awaiting quotes from both. Nawaf will follow up with his community providers and plan of care as prescribed and transport with family. CM will follow and continue to assess for discharge concerns. Social Determinants of Health Screening Social Determinants of health last assessed in clinic: 11/26/24 Will the Patient Participate in the Screening?: Yes Do you worry about having a steady place to live?: no Problems where you live: no known problems In the past 12 months, have you had to go without electric, gas, oil or water in your home?: no 1. Within the past 12 months, we worried whether our food would run out before we got money to buy more.: Never true 2. Within the past 12 months, the food we bought just didn't last and we didn't have money to get more.: Never true Has lack of transportation kept you from medical appointments or from doing things needed for daily living?: no Has anyone in your life made you feel unsafe or unsupported?: no How hard is it for you to pay for the very basics like food, housing, medical care, and heating? Would you say it is:: Not hard at all Do you want help finding or keeping work or a job?: I do not need or want help If for any reason you need help with day-to-day activities such as bathing, preparing meals, shopping, managing finances, etc., do you get the help you need?: I don?t need any help How often do you feel lonely or isolated from those around you?: Never Do you speak a language other than Spanish at home?: No Does the patient want assistance with any of the above?: No
--- NOTE | 2024-11-26 09:25 | PGE_ITS ---
Date of Service Date of service: 11/26/24 Time of Service: 09:25 Assessment and Plan Assessment and plan (1) Sepsis: Status: Acute Assessment and plan: Sepsis criteria met with WBC 12.5 , tachycardia HR 95 and tachypnea RR 25 with source: As per point 3 (2) Infection of prosthetic right knee joint: Status: Acute Assessment and plan: Presented with an infection of the right knee after femoral component revision. R knee site fluid Cx growing Strep agalactiae (Gp B) and staph Aureus - further results pending Will continue vancomycin to cover above Consider discontinuing cefazolin s/p sensitivity results - and plan for ceftriaxone on discharge for Strep agalactiae (Gp B) and MSSA staph Aureus upon confirmation of non-MRSA Blood Cx showed no growth at 24 hours Ongoing dressing as per ortho Improving leukocytosis w WBC at 14 from 22 (3) History of revision of total replacement of right knee joint: Status: Acute Assessment and plan: Completed on 11/25/24- Please read Dr. Erickson's notes Regualr diet PT consult resume A81 mg PO BID and continue at d/c (4) Pain management: Status: Acute Assessment and plan: IV acetaminophen schedule until diet is resumed s/p Sx PRN IV ketorolac- No CARYL hydromorphone 0.5 mg IVP Q2H PRN Resume oral oxycodone PRN and PRN s/p Sx when able to tolerate Continue bowel management Rx (5) Hypotension: Status: Acute Assessment and plan: Lisinopril 40 mg daily on hold x4 days re: dizziness and reported down trend in BP's Orthostatic VS negative Resume home dose Lisinopril in AM - Cr stable No CARYL- minimal increase in BUN- encourage oral fluid intake BMP in AM (6) Hyperlipidemia: Status: Acute Assessment and plan: Continue home dose statin Adjustment of dosing as per PCP for LDL goal Lipid pannel pending (7) Anemia: Status: Chronic Assessment and plan: Mild on presentation remains stable w H&H at 10& 30 w/o thrombocytopenia CBC in AM (8) On deep vein thrombosis (DVT) prophylaxis: Status: Acute Assessment and plan: On LMWH SC Discussed with Dr. Espinal Subjective Subjective Patient reports: no new complaints, feels better, pain is less, tolerating liquids well, tolerating a regular diet, voiding w/o difficulty, flatus and other (night sweats); denies bowel movement, diarrhea, nausea, vomiting, shortness of breath or fever Exam Narrative Exam Narrative: Constitutional patient sitting in chair w/o acute distress Neuro:alert and oriented X4 Resp: clear lung bilaterally Cardio: regular rate and rhythm, S1, S2, no murmur, positive pedal pulses GI: Abdomen is not distended, soft and non tender, bowel sounds are present Integumentary: no rash seen on exposed skin, and as below Extremities:R knee dressing DCI- adequate CMST's to RLE Psych: RASS 0, congruent mood and normal affect. Objective Last Vital Signs Temp 36.5 C 11/25/24 23:43 Pulse 78 11/26/24 07:38 Resp 13 11/26/24 07:38 BP 130/85 11/26/24 07:38 Pulse Ox 98 11/26/24 07:38 Laboratory Results - last 24 hr 11/25/24 11/25/24 11/26/24 11:30 17:15 06:10 WBC 15.63 H 14.59 H RBC 3.31 L 3.09 L Hgb 10.6 L 10.0 L Hct 33.0 L 30.9 L MCV 100 H 100 H MCH 32.0 32.4 MCHC 32.1 32.4 RDW 14.6 H 14.1 Plt Count 295 322 MPV 9.6 9.7 Immature Gran % 1.3 Neutrophils % 93.8 Lymphocytes % 1.6 Monocytes % 3.0 Eosinophils % 0.1 Basophils % 0.2 Nucleated RBC % 0.0 Absolute Neutrophils 14.66 H Absolute Lymphocytes 0.25 L Absolute Monocytes 0.47 Absolute Eosinophils 0.02 Absolute Basophils 0.03 PT 9.7 INR 1.0 APTT 30.8 H VBG Lactate 0.8 Sodium 143 Potassium 4.2 Chloride 108 H Carbon Dioxide 26.6 Anion Gap 8.4 BUN 23 H Creatinine 0.9 Est GFR (CKD-EPI 2020) 94.78 Glucose 152 H Calcium 9.2 Magnesium 2.1 Time Spent with Patient Time Spent with Patient: >50 minutes Time was spent: preparing to see the patient(eg.review tests), obtaining and/or reviewing separately otained hiistory, ordering medications,tests, procedures, referring, communicating with other health hospice spiritual care coordinator, indepentently interpreting results, counseling the patient and care coordination
[2024-11-26] MEDS: rifAMPin 300 MG CAP PO ×2 (10:05→20:56)
[2024-11-26 10:11] LABS: Hemoglobin A1C 5.5 % (<5.7)
--- NOTE | 2024-11-26 10:31 | IN_ITS ---
PT Notes Visit Reasons: infected right TKA Physical Therapy Inpatient Initial Evaluation Date: 11/26/2024 Referring Doctor: Genevieve Shetty NP PT Orders: PT CONSULT: S/P Ortho Surgery Precautions: WBAT on the R LE with AD. Patient Profile/Admitting Diagnosis: Venkatesh is a 64-year-old male with R periprosthetic knee infection S/P open debridement and polyethylene exchange (ODPE) on postoperative day 1. He s S/P R TKA on 01/16/2025. PMHX: All Active Problems Infection of prosthetic right knee joint (Acute) History of revision of total replacement of right knee joint (Acute 11/11/24) Femoral componentFemoroacetabular impingement of right hip (Acute) Encounter for screening colonoscopy (Acute) Surgical wound breakdown (Acute) History of total left hip arthroplasty (Acute ~11/20/23) History of total right knee replacement (Acute 01/16/23) Arthritis of left knee (Acute) Steroid injection: 01/16/2023; 07/02/23Carotid bruit (Acute) Hyperlipidemia (Acute) Hypertension (Chronic) Medical History Hx of hyperlipidemia Hx of essential hypertension Eczema Surgical History History of colonoscopy (~05/2024) History of left hip replacement History of total right knee replacement (TKR) Status post total replacement of right shoulder History of arthroscopy of right knee Hx of appendectomy Social History/Home Situation: Lives with in a private2-story home with 3 steps to enter with a rail on one side. Has a flight of steps to the basement and to the second floor of the house but will be mainly on the main floor as he recovers. using the main floor as he recovers. He hs been indpendent with all aspects of ADLs prior to admission although mobility performance has gotten difficult to perform due to worsening pain and soreness in R knee in the past weeks. Equipment Owned/DME: [facility] Subjective: Pain in the R knee at 3/10 with weight bearing. Denied lightheadedness, chest pain, and headache throughout session. Objective: General Observation: ANGELES wraps to R LE. Wound vaccuum to R knee in place. Mental Status: A and O x 4 Pain: As above ROM: Right Lower Extremity: Hip flexion WFL. Hip abduction WFL. Knee flexion about 10 degrees to 90 degrees. Ankle dorsiflexion WFL. Ankle plantarflexion WFL. Left Lower Extremity: Hip flexion WFL. Hip abduction WFL. Knee flexion WFL. Ankle dorsiflexion WFL. Ankle plantarflexion WFL. Strength: Right Lower Extremity: Hip flexors 5/5. Hip abductors 5/5. Knee flexors 5/5. Knee extensors 5/5. Ankle dorsiflexors 5/5. Ankle plantarflexors 5/5. Left Lower Extremity:Hip flexors 5/5. Hip abductors 5/5. Knee flexors 3-/5. Knee extensors 3-/5. Ankle dorsiflexors 5/5. Ankle plantarflexors 5/5. Sensation: Intact as to pain and light pressure in BLE Bed Mobility/Transfers: Minimal cueing provided for use of B hands as needed for support, movement sequence, AD management, and posture to reduce fall risk and minimize pain report Supine to sit independent Sit to stand stand by assist Stand to sit stand by assist Bed to chair stand by assist Gait: Facilitated safe and correct performance of level surface ambulation covering a distance of 100 feet + 100 feet using no assistive device with standby assist and minimal cues provided for posture, movement sequence, and walker management to reduce fall risk and minimize pain report. Patient did not report increased pain level in the R knee. Denied headache, chest pain, and lightheadedness throughout session. Stairs: Guided patient with safe and correct negotiation of 6 x 4 inch steps and and 4 x 6 inch steps while holding onto a rail and using no assistive device with step to gait pattern and minimal verbal cueing for correct movement sequence, posture, and AD management to minimize fall and reduce pain report. Obeserved stifness in the R knee with decreased knee flexion during each ascent compared to the other side. Balance: Static Sitting: Normal Dynamic Sitting: Normal Static Standing: Fair Dynamic Standing: Fair Special Tests: Mobility Limitations Standardized Measure [facility] AM-PAC 6 clicks Basic Mobility Inpatient Short Form: Raw Score: 24 CMS Score: 0% deficit Informed Consent/Education: Patient instructed in purpose of PT consult. Packet containing TKA exercise protocol will be given to patient. Education and training on initial set of exercises that can be done at home have been completed with patient. Trained patient with correct performance of exercises below to maximize motor control, joint flexibility, soft tissue extensibility of the R knee musculature to facilitate return to independent functional mobility performance. Access Code: [email or web address] URL: [email or web address] Date: 11/26/2024 Prepared by: Bell Gonzalez Exercises - Supine Quad Set - 1 x daily - 7 x weekly - 1 sets - 10 reps - 5 hold - Supine Heel Slide - 1 x daily - 7 x weekly - 1 sets - 10 reps - 5 hold - Supine Ankle Pumps - 1 x daily - 7 x weekly - 1 sets - 10 reps - 5 hold - Small Range Straight Leg Raise - 1 x daily - 7 x weekly - 1 sets - 10 reps - 5 hold - Seated March - 1 x daily - 7 x weekly - 1 sets - 10 reps - 5 hold Assessment: Patient tolerated transfers and ambulation without an assistive device. Patient presents with clinical signs and symptoms consistent with current/admitting diagnoses that have resulted to mobility limitations, gait instability, generalized weakness, and impairment of motor control as demonstrated by the following impairment level findings: 1. Decreased strength to R knee major muscle groups 2. Impaired standing balance Impairments are contributing to the following functional limitations: 1. Inability to safely ambulate without assistive device 2. Increase completion time for mobility ADL performance 3. Increased fall risk Patient is assessed as a 14734 moderate complexity based on the following: History: 64-year-old male with impairment level findings, functional limitations, and past medical history as indicated above Examination: Demonstrable impairment in strength, balance, and mobility level with underlying impairments and functional limitations as documented above Presentation: Evolving Decision Makin moderate complexity Goals: Goals X1 week 1. Sit-Stand independent 2. Stand-Sit independent 3. Bed-Chair independent 4. Chair-Bed independent 5. Independent gait on level surface with use of least restrictive device for at least 300 feet without report of pain nor dyspnea 6. Independent stair negotiation while holding onto bilateral rails for at least 10 steps without report of pain nor dyspnea 7. Independent with home exercise program 8. Good static and dynamic standing balance/tolerance Plan of Care/Treatment Plan: Patient will highly benefit from skilled physical therapy services including functional mobility training, bed mobility/transfer training, gait and balance training, therapeutic exercises, therapeutic activity, caregiver/staff/family education and training 1x/day, 7 days/week x 1 week. Plan of care has been reviewed with the MUD TEMPERER providing the service under Physical Therapy direction. Initiate Physical Therapy intervention for strengthening, bed mobility, transfers, gait, stairs, balance training, use of assistive device. DISCHARGE RECOMMENDATIONS: Home when medically cleared by orthopedic surgeon. Recommend outpatient PT services in order to optimize functional mobility outcomes and facilitate return to independent community ambulation without an assistive device. TREATMENT CODE/TIME: 51136 x 20 minutes for 1 unit, 9753 0 x 10 minutes for 1 unit (10:31?11:01). Thank you for the opportunity to participate in the care of this patient. Bell Gonzalez PT, DPT, CLT [facility] [place], [place]
[2024-11-26] MEDS: VANCOMYCIN 1,250 MG in Normal Saline 250 ML 166.667 MG IVPB (11:06)
[2024-11-26 16:01] VITALS: BP 133/72; PULSE 69; RESP 24; TEMP 36.8; O2SAT 98
--- NOTE | 2024-11-26 19:00 | DI.RAD_ITS ---
Exam(s) XR PORTABLE CHEST AP POST LINE EXAM: XR PORTABLE CHEST AP POST LINE CLINICAL HISTORY: PICC line insertion confirmation. TECHNIQUE: 2D digital imaging was performed. COMPARISON: No exams were available for comparison FINDINGS: Single AP portable view. Heart size is upper normal. The mediastinum is not widened. Lungs are clear. No infiltrates nor obvious pleural effusions. Distal tip of the newly placed right PICC line is in the upper right atrium. Abnormal lucency around the components of the right shoulder prosthesis is noted. IMPRESSION: No acute pulmonary findings on this single AP portable view of the chest. Distal tip of the newly placed right PICC line is in the upper right atrium. Abnormal lucency around the right shoulder prosthesis. DATA REPOSITORY: RADIATION DOSE DELIVERED:
--- NOTE | 2024-11-26 19:50 | DI.VRAD_ITS ---
PROCEDURE INFORMATION: Exam: XR Chest Exam date and time: 11/26/2024 19:26 Age: 64 years old Clinical indication: Device placement; Picc TECHNIQUE: Imaging protocol: Radiologic exam of the chest. Views: 1 view. COMPARISON: CR XR CHEST 2V PA LATERAL 08/01/2019 10:41 FINDINGS: Tubes, catheters and devices: Right arm PICC tip satisfactory at the upper cavoatrial junction. Lungs: Very low lung volumes with suspected mild multifocal subsegmental atelectasis and/or scarring. Pleural spaces: No pleural effusion. No pneumothorax. Heart/Mediastinum: The cardiac silhouette is upper limits of normal. Bones/joints: Right glenohumeral arthroplasty is partially assessed; there is chronic appearing lucency along the glenoid and proximal humerus not optimally assessed on these films and is likely progressive; status of hardware not optimally assessed. Loosening suspected, infection less likely, likely chronic. Dedicated shoulder films would help to assess this if clinically indicated. IMPRESSION: 1. Right arm PICC tip satisfactory at the upper cavoatrial junction. 2. Very low lung volumes with suspected mild multifocal subsegmental atelectasis and/or scarring. 3. Right glenohumeral arthroplasty poorly assessed as above. Dictated and Authenticated by: Fannie Jefferson MD. Orderin Dre Sow MD
[2024-11-26] MEDS: Aspirin E.C. 81 MG TABEC PO (20:57)
[2024-11-26 23:20] VITALS: BP 134/83; PULSE 75; RESP 15; TEMP 36.3; O2SAT 97
[2024-11-27] VITALS (10 sets, daily range): BP systolic 136–152; BP diastolic 80–89; PULSE 75–86; RESP 16–24; TEMP 36.2–38.5; O2SAT 95–99
[2024-11-27] MEDS: ceFAZolin 1 GM/50 ML BAG IVPB (04:58)
[2024-11-27] MEDS: Ketorolac 15 MG/ML VIAL IVP (04:58)
[2024-11-27 06:38] LABS: Abs Immature Grans 0.08 10^3/uL (0.0-0.06); Absolute Basophil Count 0.04 10^3/uL (0.0-0.2); Absolute Eosinophil Count 0.21 10^3/uL (0.0-0.7); Absolute Lymphocyte Count 1.04 10^3/uL (1.2-3.4); Absolute Monocyte Count 1.37 10^3/uL (0.1-0.8); Absolute Neutrophil Count 7.48 10^3/uL (1.2-6.7); Basophils % 0.4 %; Eosinophils % 2.1 %; HCT 29.5 % (40.0-50.0); HGB 9.6 g/dL (13.5-17.5); Immature Grans % 0.8 %; Lymphocytes % 10.2 %; MCH 31.9 pg (27.0-33.0); MCHC 32.5 % (32.0-36.0); MCV 98 fL (80-95); MPV 9.6 fL (8.0-11.0); Monocytes % 13.4 %; Neutrophils % 73.1 %; Platelet Count 357 10^3/uL (130-400); RBC 3.01 10^6/uL (4.36-5.78); RDW 14.3 % (11.8-14.1); RDW-SD 51.4 fL; WBC 10.22 10^3/uL (4.4-10.8)
[2024-11-27 06:59] LABS: Anion Gap 8.6 mmol/L (3-11); BUN 24 mg/dL (7-18); CO2 26.4 mmol/L (21.0-32.0); CREATININE 0.9 mg/dL (0.70-1.30); Calcium 8.7 mg/dL (8.5-10.1); Calculated LDL 66 mg/dL (<100); Chloride 107 mmol/L (98-107); Cholesterol 128 mg/dL (<200); Estimated GFR 94.78 (mL/min/1.73m2); Glucose 108 mg/dL (74-106); HDL Cholesterol 38 mg/dL (>or=40); Potassium 3.8 mmol/L (3.5-5.1); Sodium 142 mmol/L (136-145); Triglyceride 124 mg/dL (<150)
[2024-11-27] MEDS: Acetaminophen 325 MG TAB 650 MG PO ×4 (07:45→20:55)
[2024-11-27] MEDS: Enoxaparin 40 MG/0.4 ML SYR SC (07:45)
[2024-11-27] MEDS: Famotidine 20 MG TAB PO (07:45)
[2024-11-27] MEDS: Aspirin E.C. 81 MG TABEC PO ×2 (07:45→20:55)
[2024-11-27] MEDS: Atorvastatin 10 MG TAB PO (07:46)
[2024-11-27] MEDS: Lisinopril 20 MG TAB 40 MG PO (07:46)
[2024-11-27] MEDS: Docusate Sodium 100 MG CAP PO ×2 (07:46→20:56)
[2024-11-27] MEDS: rifAMPin 300 MG CAP PO ×2 (07:46→20:55)
[2024-11-27] MEDS: Normal Saline Flush 10 ML SYR IVP ×4 (07:47→20:58)
[2024-11-27 07:49] LABS: Lab Add On Test DONE
[2024-11-27 08:05] LABS: C-Reactive Protein 9.66 mg/dL (<or=0.5)
[2024-11-27 08:45] LABS: Vancomycin, Random 8.2 ug/mL
[2024-11-27] MEDS: VANCOMYCIN/WATER (PEG) 750 MG/150 ML BAG 150 MG IVPB (09:51)
[2024-11-27] MEDS: cefTRIAXone 2 GM/50 ML BAG IVPB (11:06)
--- NOTE | 2024-11-27 13:57 | W.PM.PROGNOT ---
Date of Service Date of service: 11/27/24 Time of Service: 13:58 Assessment and Plan Assessment and plan (1) Sepsis: Status: Acute Assessment and plan: On admission: Sepsis criteria met with WBC 12.5 , tachycardia HR 95 and tachypnea RR 25 with source: As per point 3 (2) Infection of prosthetic right knee joint: Status: Acute Assessment and plan: Presented with an infection of the right knee after femoral component revision. R knee site fluid Cx growing Strep agalactiae (Gp B) and MSSA - sensitivity resulted in no resistance Will continue Ceftriaxone and rifampin X 6 weeks Blood Cx showed no growth at 48 hours Ongoing dressing as per ortho Resolved leukocytosis (3) History of revision of total replacement of right knee joint: Status: Acute Assessment and plan: Completed on 11/25/24- Please read Dr. Erickson's notes resume A81 mg PO BID and continue at d/c and as above (4) Pain management: Status: Acute Assessment and plan: oral scheduled acetaminophen PRN IV ketorolac Oxycodone PRN - did not use at home hydromorphone 0.5 mg IVP Q2H PRN Continue bowel management Rx (5) Hypotension: Status: Acute Assessment and plan: On home dose Lisinopril 40 mg daily o (6) Hyperlipidemia: Status: Acute Assessment and plan: Continue home dose statin Adjustment of dosing as per PCP for LDL goal Lipid pannel pending (7) Anemia: Status: Chronic Assessment and plan: Mild on presentation remains stable CBC in AM (8) On deep vein thrombosis (DVT) prophylaxis: Status: Acute Assessment and plan: On LMWH SC (9) Discharge planning issues: Status: Acute Assessment and plan: Medical consultation completed- please reach out to the hospitalist team if further services are needed Discussed with Dr. Casey Subjective Subjective Patient reports: no new complaints, feels better, pain is less, tolerating liquids well, tolerating a regular diet, voiding w/o difficulty, flatus and bowel movement; denies diarrhea, nausea, vomiting, shortness of breath or fever Exam Narrative Exam Narrative: Constitutional patient sitting in bed w/o acute distress, pain on ambulation 5/10 to right knee otherwise minimal discomfort Neuro:alert and oriented X4 Resp: clear lung bilaterally Cardio: regular rate and rhythm, S1, S2, no murmur, positive pedal pulses GI: Abdomen is not distended, soft and non tender, bowel sounds are present Integumentary: no rash seen on exposed skin, and as below Extremities:R knee dressing DCI with LILLY pump- adequate CMST's to RLE Psych: RASS 0, congruent mood and normal affect. Objective Last Vital Signs Temp 37.4 C 11/27/24 11:08 Pulse 75 11/27/24 11:08 Resp 16 11/27/24 11:08 BP 150/89 H 11/27/24 11:08 Pulse Ox 98 11/27/24 11:08 Laboratory Results - last 24 hr 11/27/24 11/27/24 11/27/24 06:05 07:48 08:03 WBC 10.22 RBC 3.01 L Hgb 9.6 L Hct 29.5 L MCV 98 H MCH 31.9 MCHC 32.5 RDW 14.3 H Plt Count 357 MPV 9.6 Immature Gran % 0.8 Neutrophils % 73.1 Lymphocytes % 10.2 Monocytes % 13.4 Eosinophils % 2.1 Basophils % 0.4 Nucleated RBC % 0.0 Absolute Neutrophils 7.48 H Absolute Lymphocytes 1.04 L Absolute Monocytes 1.37 H Absolute Eosinophils 0.21 Absolute Basophils 0.04 Sodium 142 Potassium 3.8 Chloride 107 Carbon Dioxide 26.4 Anion Gap 8.6 BUN 24 H Creatinine 0.9 Est GFR (CKD-EPI 2020) 94.78 Glucose 108 H Calcium 8.7 C-Reactive Protein 9.66 H Triglycerides 124 Total Cholesterol 128 LDL Cholesterol, Calc 66 HDL Cholesterol 38 Random Vancomycin 8.2 Add-On Test Request DONE Time Spent with Patient Time Spent with Patient: >50 minutes Time was spent: preparing to see the patient(eg.review tests), obtaining and/or reviewing separately otained hiistory, ordering medications,tests, procedures, referring, communicating with other health district manager primary care sales, indepentently interpreting results, counseling the patient and care coordination
--- NOTE | 2024-11-27 14:29 | PTTR_ITS ---
PT Notes Visit Reasons: infected right TKA Physical Therapy Inpatient Treatment Note Date: 11/27/2024 Precautions: WBAT on the R LE. Subjective: Pain in the R knee at 4/10 at rest and with weight bearing. Denied lightheadedness, chest pain, and headache throughout session. Did not sleep well last night due to pain. Objective: General Observation: Wound vacuum to R knee in place. Mental Status: A and O x 4 Pain: As above Bed Mobility/Transfers: Minimal cueing provided for use of B hands as needed for support, movement sequence, AD management, and posture to reduce fall risk and minimize pain report Supine to sit independent Sit to stand independent Stand to sit independent Bed to chair independent Gait: Supervised safe and correct performance of level surface ambulation covering a distance of 250 feet + 250 feet using no assistive device with standby assist and minimal cues Patient did not report increased pain level in the R knee. Decreased flexion observed during swing phase of gait. Stairs: Guided patient with safe and correct negotiation of 6 x 4 inch steps and and 4 x 6 inch steps while holding onto a rail and using no assistive device with step to gait pattern and minimal verbal cueing for correct movement sequence, posture, and AD management to minimize fall and reduce pain report. Observed stifness in the R knee with decreased knee flexion during each ascent compared to the other side. THERA ACT: Reviewed TKA exercise protocol will be given to patient. Education and training on initial set of exercises that can be done at home have been completed with patient. Trained patient with correct performance of exercises below to maximize motor control, joint flexibility, soft tissue extensibility of the R knee musculature to facilitate return to independent functional mobility performance. Access Code: [email or web address] URL: [email or web address] Date: 11/26/2024 Prepared by: Bell Gonzalez Exercises - Supine Quad Set - 1 x daily - 7 x weekly - 1 sets - 10 reps - 5 hold - Supine Heel Slide - 1 x daily - 7 x weekly - 1 sets - 10 reps - 5 hold - Supine Ankle Pumps - 1 x daily - 7 x weekly - 1 sets - 10 reps - 5 hold - Small Range Straight Leg Raise - 1 x daily - 7 x weekly - 1 sets - 10 reps - 5 hold - Seated March - 1 x daily - 7 x weekly - 1 sets - 10 reps - 5 hold Assessment: Advised patient to slowly walk in hallway 9or at e) every 2-3 hours to optimize R knee flexibility while infectious process is being managed to ensure that R quadriceps is gradually activated early on. Worked on activity of walking on level surface and stairs today to continue to rehab R quadriceps in functional perforrmance. Patient did not require an assistive device throughut this session with no increase in pain reported. Plan of Care/Treatment Plan: 1x/day daily for 2weeks. Patient will highly benefit from skilled physical therapy services including functional mobility training, bed mobility/transfer training, gait and balance training, therapeutic exercises, therapeutic activity, caregiver/staff/family education and training 1x/day, 7 days/week x 1 week. Plan of care has been reviewed with the WORKFORCE CONSULTANT providing the service under Physical Therapy direction. Initiate Physical Therapy intervention for strengthening, bed mobility, transfers, gait, stairs, balance training, use of assistive device. DISCHARGE RECOMMENDATIONS: Home when medically cleared by orthopedic surgeon. Recommend outpatient PT services in order to optimize functional mobility outcomes and facilitate return to independent community ambulation without an assistive device. TREATMENT CODE/TIME: 83368 x 17 minutes for 1 unit (13:55?14:12).
--- NOTE | 2024-11-27 15:39 | CMPROGNOTE_ITS ---
Date of service: 11/27/24 Time of Service: 15:39 Care Management Progress Note Progress Note Text Progress Note Text: Venkatesh was sitting up in his bed when CM met with him; his was in the room visiting. They were both pleasant and engaged well in conversation. CM discussed the information received earlier this morning regarding home IV antibiotics. Per NE, Venkatesh has not yet met his $1500 deductible, which will need to be paid up front if he chooses to continue with this plan of care. CM discussed the alternative option for him to go to the infusion room at [facility] daily. After discussing the options with his and MD he decided to go to the infusion room, at least to start his care. He may decide to transition to home IV antibiotics, which he will reach out to Ortho to discuss. Per MD, he may not need the full 6 weeks of treatment. Venkatesh will remain overnight, and will have his next antibiotic dose tomorrow prior to discharge. His start of care with the infusion room will be Sunday at 12:30, which will be his daily infusion time. CM will continue to follow. Discharge Potential Discharge Needs: Surgical F/U Appt Anticipated Barriers to Discharge: None Identified Patient/Family Education Needs: Review discharge instructions, discuss Ask Me Three Transportation: Private vehicle Plan: Venkatesh will return home once medically cleared, likely tomorrow. He will have his dose of antibiotics prior to discharge, and start his outpatient antibiotics at the infusion center at [facility] on Sunday. His will transport him home via private vehicle. He will follow up with Ortho and his discharge plan of care. CM will continue to follow. Social Determinants of Health Screening Social Determinants of health last assessed in clinic: 11/27/24 Will the Patient Participate in the Screening?: Yes Do you worry about having a steady place to live?: no Problems where you live: no known problems In the past 12 months, have you had to go without electric, gas, oil or water in your home?: no 1. Within the past 12 months, we worried whether our food would run out before we got money to buy more.: Don't know/refused 2. Within the past 12 months, the food we bought just didn't last and we didn't have money to get more.: Don't know/refused Has lack of transportation kept you from medical appointments or from doing things needed for daily living?: no Has anyone in your life made you feel unsafe or unsupported?: no How hard is it for you to pay for the very basics like food, housing, medical care, and heating? Would you say it is:: Not hard at all Do you want help finding or keeping work or a job?: I do not need or want help If for any reason you need help with day-to-day activities such as bathing, preparing meals, shopping, managing finances, etc., do you get the help you need?: I don?t need any help How often do you feel lonely or isolated from those around you?: Never Do you speak a language other than Bulgarian at home?: No Does the patient want assistance with any of the above?: No
--- NOTE | 2024-11-27 17:07 | W.PM.PROGNOT ---
Date of Service Date of service: 11/27/24 Time of Service: 12:40 Assessment and Plan Assessment and plan (1) Infection of prosthetic right knee joint: Status: Acute Assessment and plan: Nawaf is a 64-year-old male who is postop day #2 status post irrigation debridement with polyethylene exchange of the right knee for prosthetic knee infection. Overall, I still think he is doing well. He did have subjective fever and increase in pain. This is usually related to an inflammatory response after the irrigation debridement typically is normal within the first 48 to 72 hours. His white blood cell count is reducing to normal. His CRP has gone down from greater than 25 to 9. He does have some postoperative anemia which may be making him fatigued and feeling not quite himself. I think this is to be expected given the severity of his infection and the treatment. I do not see any significant concerns that we have any failure as it is way too early to know, particular with the improvement the labs. He does have MSSA and group B strep which can be treated with ceftriaxone. Therefore, we will transition to 2 g of ceftriaxone daily. I will be working on a discharge plan with likely home tomorrow and receiving the antibiotic in the infusion room. He will likely need 6 weeks of total antibiotics intravenously but we may be out of transition to orals much sooner if he shows clinical and laboratory response. We will continue with rifampin for at least 6 weeks, if not up to 3 months, to assist with biofilm breakdown on the components. Subjective Subjective Interval history since last seen: Nawaf reports he did not sleep well last night. He woke up with some pain to his more than he has had recently. He has been able to still mobilize without any significant increase in pain. He overall feels quite tired and not himself. Cultures have speciated to MSSA along with group B strep. Rifampin was added yesterday. Labs show significant proved with his white blood cell count as well as CRP. Blood cultures are negative. PICC line was placed yesterday without difficulty. Exam Narrative Exam Narrative: Dressing is clean dry and intact. There is notable swelling around the knee. There is no palpable defect of the quadriceps. He is able to straight leg raise with minimal lag. Flexion to about 70 degrees and then he has some pain and tightness. The knee is stable to varus and valgus stress. Objective Last Vital Signs Temp 38 C H 11/27/24 15:54 Pulse 78 11/27/24 15:10 Resp 24 11/27/24 15:10 BP 136/80 11/27/24 15:10 Pulse Ox 99 11/27/24 15:10 Laboratory Results - last 24 hr 11/27/24 11/27/24 11/27/24 06:05 07:48 08:03 WBC 10.22 RBC 3.01 L Hgb 9.6 L Hct 29.5 L MCV 98 H MCH 31.9 MCHC 32.5 RDW 14.3 H Plt Count 357 MPV 9.6 Immature Gran % 0.8 Neutrophils % 73.1 Lymphocytes % 10.2 Monocytes % 13.4 Eosinophils % 2.1 Basophils % 0.4 Nucleated RBC % 0.0 Absolute Neutrophils 7.48 H Absolute Lymphocytes 1.04 L Absolute Monocytes 1.37 H Absolute Eosinophils 0.21 Absolute Basophils 0.04 Sodium 142 Potassium 3.8 Chloride 107 Carbon Dioxide 26.4 Anion Gap 8.6 BUN 24 H Creatinine 0.9 Est GFR (CKD-EPI 2020) 94.78 Glucose 108 H Calcium 8.7 C-Reactive Protein 9.66 H Triglycerides 124 Total Cholesterol 128 LDL Cholesterol, Calc 66 HDL Cholesterol 38 Random Vancomycin 8.2 Add-On Test Request DONE Time Spent with Patient Time Spent with Patient: 35-49 minutes Time was spent: preparing to see the patient(eg.review tests), obtaining and/or reviewing separately otained hiistory, referring, communicating with other health primary care sales representative, indepentently interpreting results, counseling the patient and care coordination
[2024-11-28 07:13] VITALS: BP 130/89; PULSE 89; RESP 16; TEMP 36.2; O2SAT 100
--- NOTE | 2024-11-28 07:24 | DSE_ITS ---
Date of service: 11/28/24 Time of Service: 13:00 DS: Diagnosis Discharge Diagnosis (1) Infection of prosthetic right knee joint: Status: Acute Discharge Plan Disposition Patient Disposition: Home Condition: Improving Discharge Details Reason For Visit: infected right TKA Admit Date/Time: 11/24/24 09:20 Admit Provider: Juanjose Erickson Attending Provider: Juanjose Erickson Primary Care Provider: Deepika Reynaga Hospital Course Hospital Course: This 64 years old male patient with a PMHx of hyperlipidemia, hypertension presented to the ED for evaluation of right knee infection s/p recent femoral component revision after been seen by orthopedic services outpatient with initial Gram stain of fluid from R knee aspiration grew gram-positive cocci in chains. The patient was admitted to the medical surgical floor for sepsis management, IV ceftriaxone and vancomycin and R knee replacement with [facility] requested by orthopedic services. Urgent right knee surgery with irrigation and debridment completed on 11/27/2023. 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 Blood cultures remained negative at 48 hours. Protonix change to famotidine, aspirin 81 mg BID resumed. Home Meds and New Rx's Prescriptions: New Bio-K plus 50 billion cell capsule,delayed release(DR/EC) 1 cap PO DAILY Qty: 30 0RF Rx Instructions: Take 3 hours apart form oral antibiotics famotidine 20 mg Tablet 20 mg PO DAILY Qty: 30 0RF ceftriaxone in dextrose,iso-os 2 gram/50 mL Piggyback 2 g IVPB Q24H Qty: 42 0RF Rx Instructions: Outpatient infusion X 6 weeks rifampin 300 mg capsule 300 mg PO BID Qty: 84 0RF Continued atorvastatin 10 mg tablet 10 mg PO DAILY lisinopril 40 mg tablet 40 mg PO DAILY celecoxib [Celebrex] 200 mg capsule 200 mg PO BID PRNQty: 60 0RF Rx Instructions: Take one tablet twice daily for pain and inflammation aspirin 81 mg tablet,delayed release (DR/EC) 81 mg PO BID 30 Days Qty: 60 0RF docusate sodium [Colace] 100 mg capsule 100 mg PO BID Qty: 30 0RF gabapentin 300 mg capsule 300 mg PO QHS Qty: 14 0RF Rx Instructions: Take one tablet at bedtime oxycodone 5 mg tablet 5 mg PO Q4H PRNQty: 18 0RF Rx Instructions: Take one tablet up to every 4 hours as needed for severe postoperative pain Changed acetaminophen 500 mg tablet 1,000 mg PO Q8H Qty: 30 0RF Rx Instructions: Take two tablets up to every 8 hours for 5 days then continue every 8 hours as needed Held pantoprazole 40 mg tablet,delayed release (DR/EC) 40 mg PO DAILY Qty: 14 0RF Hold Instructions: Resume on 12/18/24. discussed resumption with provider Discharge Instructions Additional Instructions: Total Knee Discharge Instructions Activity: The most important activity is to walk and to work on gentle motion (both flexion and extension). You should try to take short walks a few times a day. It is important that when resting you work on keeping the knee straight. Avoid putting a pillow behind the knee as this will encourage flexion. Work on range of motion exercises as provided by Physical Therapy. For the next 2-4 weeks, there will be a slightly less aggresive approach to the knee. It is recommended to avoid working on aggressive flexion for the next few weeks. Continue with quadriceps activation and strengthening. Dressing: The wound and dressing may get wet after 3 days but avoid soaking the dressing or otherwise it will need to be changed. Many people prefer covering the dressing with cling wrap (saran wrap) to minimize it from getting soaked. If it gets wet, just pat dry. If it starts to peel off then it will need to be changed. The LILLY dressing will likely stop working after 1 week. At this time, you may change the LILLY dressing to a new Mepilex dressing which was provided to you. Medications: - You should take Tylenol and anti-inflammatory Celebrex as your primary pain control medications. If the Celebrex is too expensive or not covered, please call the office for another alternative (Advil/Ibuprofen or Naproxen/Aleve) - You have previously been prescribed a stronger pain medication Oxycodone for breakthrough pain, take as needed as prescribed. - You have been prescribed Gabapentin to take at night for restlessness and nerve pain. - You will be taking Aspirin 81mg twice a day for DVT prevention unless instructed otherwise. - If you have constipation you should take Colace or Miralax (both spiy-oxs-viepnby). It takes most people 3-4 days to have a bowel movement. ----ANTIBIOTICS: - You will have daily infusion of Ceftriaxone 2 gram in the infusion room. This should be around 12:30 although the time may be adjusted. - You will take Rifampin 300mg BID. This should be taken 1 hour before or 2 hours after eating. You may also take this as a single dose if desired. - It would be recommended to take probiotics to assist with normal gastrointestinal teresita regrowth with the current antibiotic regimen. Follow-up: [address] Erickson's office. You will have labs drawn every week in the infusion suite. If you have any acute concerns or questions, please do not hesitate to contact the office at [phone]. You may contact Dr. Erickson with any questions after hours through the hospital at [phone] or on his cell phone at [phone]. Stand Alone Forms: Nursing Discharge Form Referrals: Deepika Reynaga [Primary Care Provider] - (follow-up within 7 days of discharge. They will call you by the end of the day today 11/28 to schedule a follow-up.) Juanjose Erickson MD [ [facility] STAFF PHYSICIAN] - (Follow-up in 2 weeks please. Called and left a message, if no call back by 12/01 please call to schedule a follow-up appointment. ) Activity:: Activity as Tolerated Equipment/Supplies:: No Equipment Needed Diet:: heart healthy Discharge Orders Discharge Orders: Discharge Order (Routine); Ordered 11/28/24 Ordered By: Severiano Knight DS: Summary Time Spent with Patient providing and/or coordinating discharge services: Less than 30 minutes Status at Discharge Functional status at discharge: uses cane/walker Overall status at discharge: patient is progressing back to baseline Mental Status: mental status grossly normal Speech and Movement: speech and movement normal Mood: congruent mood Affect: normal affect Quality:SDOH Health Related Social Needs: No Data to Display Exam Narrative Exam Narrative: Constitutional patient sitting in bed w/o acute distress, pain on ambulation 5/10 to right knee otherwise minimal discomfort Neuro:alert and oriented X4 Resp: clear lung bilaterally Cardio: regular rate and rhythm, S1, S2, no murmur, positive pedal pulses GI: Abdomen is not distended, soft and non tender, bowel sounds are present Integumentary: no rash seen on exposed skin, and as below Extremities:R knee dressing DCI with LILLY pump- adequate CMST's to RLE Psych: RASS 0, congruent mood and normal affect. Psych Mental Status: mental status grossly normal Speech and Movement: speech and movement normal Mood: congruent mood Affect: normal affect DS: Data Vitals/I&O Vitals and I&O: Vital Signs Temperature 37.4 C 11/27/24 11:08 Temperature Source Temporal Artery Scan 11/27/24 11:08 Pulse 75 11/27/24 11:08 Pulse Rhythm Regular 11/24/24 09:45 Pulse 65 11/25/24 16:36 Respiratory Rate 16 11/27/24 11:08 Respiratory Effort Normal 11/24/24 09:45 Respiratory Depth Normal 11/24/24 09:45 Respiratory Pattern Normal 11/24/24 09:45 Blood Pressure 150/89 H 11/27/24 11:08 Blood Pressure Mean 97 11/25/24 16:35 Pulse Oximetry 98 11/27/24 11:08 Respiratory End-tidal CO2 28 11/25/24 16:36 Oxygen Delivery Method Room Air 11/27/24 11:08 Oxygen Flow Rate 0 11/27/24 11:08 Pain Level 4 11/27/24 11:06 Comment RN notified 11/24/24 15:47 Comment PT ARRIVED IN PACU. 11/25/24 16:09 Intake & Output 11/26/24 11/26/24 11/27/24 11:59 23:59 11:59 Intake Total 60 / 410 350 / 410 250 / 250 Balance 60 / 410 350 / 410 250 / 250 Intake: IV 60 / 410 350 / 410 250 / 250 Other: Comment pt has been voiding independently in room, no issues stated from pt pt voids independently, no issues reported patient voids independently. Stool Size Small Data Completed and Pending Labs on day of discharge: Labs from last 24 hours 11/27/24 11/27/24 11/27/24 08:03 07:48 06:05 WBC 10.22 RBC 3.01 L Hgb 9.6 L Hct 29.5 L MCV 98 H MCH 31.9 MCHC 32.5 RDW 14.3 H Plt Count 357 MPV 9.6 Immature Gran % 0.8 Neutrophils % 73.1 Lymphocytes % 10.2 Monocytes % 13.4 Eosinophils % 2.1 Basophils % 0.4 Nucleated RBC % 0.0 Absolute Neutrophils 7.48 H Absolute Lymphocytes 1.04 L Absolute Monocytes 1.37 H Absolute Eosinophils 0.21 Absolute Basophils 0.04 Sodium 142 Potassium 3.8 Chloride 107 Carbon Dioxide 26.4 Anion Gap 8.6 BUN 24 H Creatinine 0.9 Est GFR (CKD-EPI 2020) 94.78 Glucose 108 H Calcium 8.7 C-Reactive Protein 9.66 H Triglycerides 124 Total Cholesterol 128 LDL Cholesterol, Calc 66 HDL Cholesterol 38 Random Vancomycin 8.2 Add-On Test Request DONE 11/25/24 14:08 Knee - Right Joint Surgical Culture - Pending 11/25/24 14:08 Knee - Right Joint Anaerobic Culture - Pending Preliminary micro results at discharge 11/24/24 10:08 Blood Culture - Preliminary Blood NO GROWTH 48 HOURS 11/24/24 09:55 Blood Culture - Preliminary Blood NO GROWTH 48 HOURS 11/25/24 14:08 Surgical Culture - Pending Knee - Right Joint 11/25/24 14:08 Anaerobic Culture - Pending Knee - Right Joint PFSH All Active Problems Discharge planning issues (Acute) Anemia (Chronic) Sepsis (Acute) Pain management (Acute) On deep vein thrombosis (DVT) prophylaxis (Acute) Hypotension (Acute) Infection of prosthetic right knee joint (Acute) History of revision of total replacement of right knee joint (Acute 11/11/24) Femoral component Femoroacetabular impingement of right hip (Acute) Encounter for screening colonoscopy (Acute) Surgical wound breakdown (Acute) History of total left hip arthroplasty (Acute ~11/20/23) History of total right knee replacement (Acute 01/16/23) Arthritis of left knee (Acute) Steroid injection: 01/16/2023; 07/02/23 Carotid bruit (Acute) Hyperlipidemia (Acute) Hypertension (Chronic) Medical History Hx of hyperlipidemia Hx of essential hypertension Eczema Surgical History History of colonoscopy (~05/2024) History of left hip replacement 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 Time Spent with Patient Time Spent with Patient: <45 minutes Time was spent: preparing to see the patient(eg.review tests) and counseling the patient
[2024-11-28] MEDS: rifAMPin 300 MG CAP PO (07:51)
[2024-11-28 07:57] LABS: HCT 30.6 % (40.0-50.0); HGB 9.9 g/dL (13.5-17.5); MCH 32.1 pg (27.0-33.0); MCHC 32.4 % (32.0-36.0); MCV 99 fL (80-95); MPV 9.3 fL (8.0-11.0); Platelet Count 438 10^3/uL (130-400); RBC 3.08 10^6/uL (4.36-5.78); RDW 14.2 % (11.8-14.1); RDW-SD 52.5 fL; WBC 11.93 10^3/uL (4.4-10.8)
[2024-11-28 08:11] LABS: Anion Gap 9.7 mmol/L (3-11); BUN 18 mg/dL (7-18); C-Reactive Protein 12.21 mg/dL (<or=0.5); CO2 27.3 mmol/L (21.0-32.0); CREATININE 0.9 mg/dL (0.70-1.30); Calcium 8.8 mg/dL (8.5-10.1); Chloride 103 mmol/L (98-107); Estimated GFR 94.78 (mL/min/1.73m2); Glucose 138 mg/dL (74-106); Potassium 3.6 mmol/L (3.5-5.1); Sodium 140 mmol/L (136-145)
[2024-11-28] MEDS: Aspirin E.C. 81 MG TABEC PO (09:08)
[2024-11-28] MEDS: Lisinopril 20 MG TAB 40 MG PO (09:10)
[2024-11-28] MEDS: Famotidine 20 MG TAB PO (09:11)
[2024-11-28] MEDS: Acetaminophen 325 MG TAB 650 MG PO ×2 (09:11→12:39)
[2024-11-28] MEDS: Atorvastatin 10 MG TAB PO (09:13)
[2024-11-28] MEDS: Enoxaparin 40 MG/0.4 ML SYR SC (09:15)
[2024-11-28] MEDS: Normal Saline Flush 10 ML SYR IVP ×2 (09:17→10:21)
--- NOTE | 2024-11-28 09:28 | PDOC.CMDIS ---
Date of service: 11/28/24 Time of Service: 09:28 LACE Index Scoring Tool Questions: Length of Stay (in days): 4 - 6 Was the patient admitted via the E.D.?: No E.D. Visits: 0 Answers: Total Score: 4 Risk of Readmission: Low Risk Care Management Discharge Plan Reason for Hospitalization: Infected TKR Discharge Plan: Nawaf will be discharged home and will return daily to the Infusion Center to receive his IV antibiotics. He will need to complete a 6 week course with the last dose being on 01/08/25. He will follow up with Dr. Erickson and his PCP and will transport with his . Patient/Family Education Needs: Review of discharge instructions, follow up plan, limitations, discuss Ask Me Three. Services Needed at Discharge: Infusion Therapy (6 weeks of daily IV Rocephon. Last dose 01/08/25.) [facility] Health Related Social Needs: No Data to Display
[2024-11-28] MEDS: cefTRIAXone 2 GM/50 ML BAG IVPB (10:21)
--- NOTE | 2024-11-28 13:58 | NUR.NOTE ---
Nursing Note: Documentation by Edinson Mancilla, student REGULATORY ADMINISTRATOR reviewed.
== END 2024-11-28 13:49 | disposition home or self-care (01) | DRG 485 ==
PROVIDERS: Nurse Practitioner Acute Care; Admitting Provider Student in an Organized Health Care Education/Training Program; PCP Family Medicine; Visit Provider Student in an Organized Health Care Education/Training Program
PROC: 0SPC09Z Removal of Liner from Right Knee Joint, Open Approach (ICD-10-PCS; CPT 27486; principal; 2024-11-25 15:00)
DX: T84.53XA Infection and inflammatory reaction due to internal right knee prosthesis, initial encounter (principal); A41.9 Sepsis, unspecified organism; I95.9 Hypotension, unspecified; E78.5 Hyperlipidemia, unspecified; Z79.899 Other long term (current) drug therapy; Z96.651 Presence of right artificial knee joint; D64.9 Anemia, unspecified; M25.851 Other specified joint disorders, right hip; Z96.642 Presence of left artificial hip joint; I10 Essential (primary) hypertension; L30.9 Dermatitis, unspecified; M25.561 Pain in right knee; G89.18 Other acute postprocedural pain; M17.12 Unilateral primary osteoarthritis, left knee; Z96.611 Presence of right artificial shoulder joint; B95.1 Streptococcus, group B, as the cause of diseases classified elsewhere; B95.61 Methicillin susceptible Staphylococcus aureus infection as the cause of diseases classified elsewhere
CPT/HCPCS: 27486; 00123; 36415; 36573; 64447; 71045; 80048; 80053; 80061; 85027; 87040; 97162; 97530; J1650; 80202; 83036; 83605; 83735; 85025; 85610; 85730; 86140; 87070; 87075; 87205; 93005; 93010; 99223; 99233; C1776; J0131; J0665; J0666; J0690; J0696; J1100; J1885; J2250; J2401; J2405; J2704; J3370; J3372

== ENCOUNTER 2024-11-24 14:47 | Outpatient (CLI) | payer OTHER, SELFPAY ==
--- NOTE | 2024-11-24 08:45 | DI.RAD_ITS ---
Exam(s) XR KNEE RT 2V AP,LAT EXAM: XR KNEE RT 2V AP,LAT CLINICAL HISTORY: RIGHT KNEE PAIN. TECHNIQUE: 2D digital imaging was performed. COMPARISON: CR XR KNEE RT 3V AP,LAT,GERALDINE from 07/31/[address] LOWER EXTREMITY RT WO from 08/08/2024 FINDINGS: Two views. There is a revision prosthesis now evident. No evidence of fracture or obvious loosening and no radiographic evidence of osteomyelitis. There is , however, some gas in the soft tissues anterior to the superior aspect of the patella and anterior a spect of the lower thigh. Also some soft tissue swelling at this level. No radiographic evidence of osteomyelitis. There is no radiopaque foreign body. IMPRESSION: Revision prosthesis appears satisfactory. There is soft tissue gas in the anterior aspect of the visualize mid-lower thigh either within or ant erior to the quadriceps. DATA REPOSITORY: RADIATION DOSE DELIVERED:
== END 2024-11-24 14:48 | disposition home or self-care (01) ==
LOC: DIORS 14:48
PROVIDERS: PCP Family Medicine; Visit Provider Student in an Organized Health Care Education/Training Program
DX: Z96.651 Presence of right artificial knee joint (principal); Z47.1 Aftercare following joint replacement surgery
CPT/HCPCS: 73560

== ENCOUNTER 2024-11-24 16:41 | Outpatient (REF) | payer OTHER, SELFPAY ==
[2024-11-24 09:59] LABS: Clarity Purulent; Nucleated Cells 241000 uL (0)
[2024-11-24 10:05] LABS: Mononuclear Cells 20 %; Polynuclear Cells 80 %
== END 2024-11-24 16:42 | disposition home or self-care (01) ==
LOC: LBN 16:41
PROVIDERS: PCP Family Medicine; Visit Provider Student in an Organized Health Care Education/Training Program
DX: Z96.651 Presence of right artificial knee joint (principal)
CPT/HCPCS: 87077; 87070; 87186; 87205; 89051

== ENCOUNTER 2024-12-10 01:23 | Outpatient (RCR) | payer OTHER, SELFPAY ==
[2024-11-29] MEDS: cefTRIAXone 2 GM/50 ML BAG IVPB (13:19)
[2024-11-29] MEDS: Normal Saline Flush 10 ML SYR IVP ×2 (13:21→14:01)
[2024-11-30] MEDS: cefTRIAXone 2 GM/50 ML BAG IVPB (12:38)
[2024-11-30] MEDS: Normal Saline Flush 10 ML SYR IVP (12:39)
[2024-12-01] MEDS: cefTRIAXone 2 GM/50 ML BAG IVPB ×2 (12:32→12:44)
[2024-12-01] MEDS: Normal Saline Flush 10 ML SYR IVP (13:19)
[2024-12-02] MEDS: cefTRIAXone 2 GM/50 ML BAG IVPB (12:36)
[2024-12-02] MEDS: Normal Saline Flush 10 ML SYR IVP ×2 (12:43→13:17)
[2024-12-03] MEDS: cefTRIAXone 2 GM/50 ML BAG IVPB (12:39)
[2024-12-03] MEDS: Normal Saline Flush 10 ML SYR IVP (12:39)
[2024-12-04] MEDS: cefTRIAXone 2 GM/50 ML BAG IVPB (12:25)
[2024-12-04] MEDS: Normal Saline Flush 10 ML SYR IVP (12:30)
[2024-12-05] MEDS: cefTRIAXone 2 GM/50 ML BAG IVPB (12:30)
[2024-12-05] MEDS: Normal Saline Flush 10 ML SYR IVP (12:32)
[2024-12-05 12:41] LABS: HGB 9.2 g/dL (13.5-17.5); MCH 31.6 pg (27.0-33.0); MCHC 31.7 % (32.0-36.0); MCV 100 fL (80-95); MPV 8.6 fL (8.0-11.0); RBC 2.91 10^6/uL (4.36-5.78); RDW 13.3 % (11.8-14.1); RDW-SD 48.3 fL; WBC 11.87 10^3/uL (4.4-10.8)
[2024-12-05 12:59] LABS: ALT 31 U/L (16-63); AST 18 U/L (15-37); Alkaline Phosphatase 93 U/L (46-116); Anion Gap 8.5 mmol/L (3-11); BUN 24 mg/dL (7-18); Bilirubin, Total 0.2 mg/dL (0.2-1.0); C-Reactive Protein 6.77 mg/dL (<or=0.5); CO2 25.5 mmol/L (21.0-32.0); CREATININE 0.9 mg/dL (0.70-1.30); Calcium 8.7 mg/dL (8.5-10.1); Chloride 104 mmol/L (98-107); Estimated GFR 94.78 (mL/min/1.73m2); Glucose 119 mg/dL (74-106); Potassium 4.1 mmol/L (3.5-5.1); Sodium 138 mmol/L (136-145); Total Protein 7.4 g/dL (6.4-8.2)
[2024-12-05 13:07] LABS: Platelet Count 665 10^3/uL (130-400)
[2024-12-06 12:32] VITALS: BP 113/58; PULSE 88; RESP 16; TEMP 36.6; O2SAT 98
[2024-12-06] MEDS: cefTRIAXone 2 GM/50 ML BAG IVPB (12:37)
[2024-12-06] MEDS: Normal Saline Flush 10 ML SYR IVP (12:38)
[2024-12-07] MEDS: cefTRIAXone 2 GM/50 ML BAG IVPB (12:41)
[2024-12-08] MEDS: Normal Saline Flush 10 ML SYR IVP (12:31)
[2024-12-08] MEDS: cefTRIAXone 2 GM/50 ML BAG IVPB (12:31)
[2024-12-09] MEDS: cefTRIAXone 2 GM/50 ML BAG IVPB (12:31)
[2024-12-09] MEDS: Normal Saline Flush 10 ML SYR IVP (12:31)
[2024-12-10] MEDS: cefTRIAXone 2 GM/50 ML BAG IVPB (12:09)
[2024-12-10] MEDS: Normal Saline Flush 10 ML SYR IVP (12:09)
== END 2024-12-10 23:59 | disposition home or self-care (01) ==
LOC: INF 01:23
PROVIDERS: PCP Family Medicine; Visit Provider Student in an Organized Health Care Education/Training Program
DX: T84.53XA Infection and inflammatory reaction due to internal right knee prosthesis, initial encounter (principal)
CPT/HCPCS: 36592; 80053; 85027; 96365; 96523; 86140; J0696

== ENCOUNTER 2024-12-18 19:03 | Outpatient (REF) | payer OTHER, SELFPAY ==
[2024-12-18 19:57] LABS: TSH (W/Ref FT4) 2.17 uIU/mL (0.36-3.74)
[2024-12-19 20:45] LABS: PSA, Screening 2.8 ng/mL (<=4.5)
[2024-12-22 11:37] LABS: HIV-1/2 Ag & Ab Screen Negative (Negative)
[2024-12-22 15:37] LABS: Albumin 53.7 % (55.8-66.1); Albumin g/dL 3.9 g/dL (3.6-5.2); Comment (See Note); Total Protein 7.3 g/dL (6.3-8.2)
[2024-12-23 08:28] LABS: Immunotyping, Serum (See Note)
== END 2024-12-18 19:04 | disposition home or self-care (01) ==
LOC: NCHCN 19:03
PROVIDERS: PCP Family Medicine; Visit Provider Family Medicine
DX: R63.4 Abnormal weight loss (principal)
CPT/HCPCS: 84153; 87389; 84165; 84443; 86320

== ENCOUNTER 2024-12-22 16:02 | Outpatient (REF) | payer OTHER, SELFPAY ==
[2024-12-22 14:12] LABS: Clarity Cloudy; Mononuclear Cells 5 %; Polynuclear Cells 95 %
== END 2024-12-22 16:03 | disposition home or self-care (01) ==
LOC: LBN 16:02
PROVIDERS: PCP Family Medicine; Visit Provider Student in an Organized Health Care Education/Training Program
DX: T84.53XA Infection and inflammatory reaction due to internal right knee prosthesis, initial encounter (principal)
CPT/HCPCS: 87070; 87205; 89051

== ENCOUNTER 2025-01-10 00:48 | Outpatient (RCR) | payer OTHER, SELFPAY ==
[2024-12-11] MEDS: cefTRIAXone 2 GM/50 ML BAG IVPB (09:21)
[2024-12-11] MEDS: Normal Saline Flush 10 ML SYR IVP (09:22)
[2024-12-12] MEDS: cefTRIAXone 2 GM/50 ML BAG IVPB (12:35)
[2024-12-12 12:45] LABS: HCT 32.3 % (40.0-50.0); MCH 31.5 pg (27.0-33.0); MCHC 31.9 % (32.0-36.0); MCV 99 fL (80-95); MPV 8.6 fL (8.0-11.0); RBC 3.27 10^6/uL (4.36-5.78); RDW 13.5 % (11.8-14.1); RDW-SD 49.5 fL; WBC 8.69 10^3/uL (4.4-10.8)
[2024-12-12] MEDS: Normal Saline Flush 10 ML SYR IVP (12:49)
[2024-12-12 13:00] LABS: ALT 23 U/L (16-63); AST 20 U/L (15-37); Albumin 3.5 g/dL (3.4-5.0); Alkaline Phosphatase 107 U/L (46-116); Anion Gap 8.4 mmol/L (3-11); BUN 21 mg/dL (7-18); Bilirubin, Total 0.2 mg/dL (0.2-1.0); C-Reactive Protein 3.35 mg/dL (<or=0.5); CO2 27.6 mmol/L (21.0-32.0); Calcium 9.1 mg/dL (8.5-10.1); Chloride 105 mmol/L (98-107); Estimated GFR 83.52 (mL/min/1.73m2); Glucose 92 mg/dL (74-106); Potassium 4.4 mmol/L (3.5-5.1); Sodium 141 mmol/L (136-145); Total Protein 8.1 g/dL (6.4-8.2)
[2024-12-12 13:26] LABS: HGB 10.3 g/dL (13.5-17.5); Platelet Count 666 10^3/uL (130-400)
[2024-12-13] MEDS: Normal Saline Flush 10 ML SYR IVP (12:40)
[2024-12-13] MEDS: cefTRIAXone 2 GM/50 ML BAG IVPB (12:41)
[2024-12-13 14:24] VITALS: BP 130/79; PULSE 77; RESP 16; TEMP 36.6
[2024-12-14] MEDS: cefTRIAXone 2 GM/50 ML BAG IVPB (12:35)
[2024-12-14] MEDS: Normal Saline Flush 10 ML SYR IVP (12:35)
[2024-12-14 12:42] VITALS: BP 144/87; PULSE 67; RESP 14; TEMP 37.2; O2SAT 98
[2024-12-15] MEDS: cefTRIAXone 2 GM/50 ML BAG IVPB (10:37)
[2024-12-15] MEDS: Normal Saline Flush 10 ML SYR IVP (10:38)
[2024-12-16] MEDS: cefTRIAXone 2 GM/50 ML BAG IVPB (12:26)
[2024-12-16] MEDS: Normal Saline Flush 10 ML SYR IVP (12:26)
[2024-12-17] MEDS: cefTRIAXone 2 GM/50 ML BAG IVPB (12:28)
[2024-12-17] MEDS: Normal Saline Flush 10 ML SYR IVP (12:29)
[2024-12-18] MEDS: cefTRIAXone 2 GM/50 ML BAG IVPB (12:28)
[2024-12-18] MEDS: Normal Saline Flush 10 ML SYR IVP (12:29)
[2024-12-19] MEDS: cefTRIAXone 2 GM/50 ML BAG IVPB (12:34)
[2024-12-19] MEDS: Normal Saline Flush 10 ML SYR IVP (12:34)
[2024-12-19 12:48] LABS: HCT 32.7 % (40.0-50.0); HGB 10.6 g/dL (13.5-17.5); MCH 31.4 pg (27.0-33.0); MCHC 32.4 % (32.0-36.0); MCV 97 fL (80-95); Platelet Count 387 10^3/uL (130-400); RBC 3.38 10^6/uL (4.36-5.78); RDW 14.2 % (11.8-14.1); WBC 10.48 10^3/uL (4.4-10.8)
[2024-12-19 13:04] LABS: ALT 15 U/L (16-63); AST 17 U/L (15-37); Albumin 3.5 g/dL (3.4-5.0); Alkaline Phosphatase 107 U/L (46-116); Anion Gap 7.1 mmol/L (3-11); BUN 18 mg/dL (7-18); Bilirubin, Total 0.3 mg/dL (0.2-1.0); C-Reactive Protein 3.84 mg/dL (<or=0.5); CO2 28.9 mmol/L (21.0-32.0); CREATININE 0.8 mg/dL (0.70-1.30); Calcium 9.1 mg/dL (8.5-10.1); Chloride 106 mmol/L (98-107); Estimated GFR 98.21 (mL/min/1.73m2); Glucose 81 mg/dL (74-106); Potassium 4.3 mmol/L (3.5-5.1); Sodium 142 mmol/L (136-145); Total Protein 7.8 g/dL (6.4-8.2)
[2024-12-20 12:30] VITALS: BP 144/77; PULSE 76; RESP 16; TEMP 36.7; O2SAT 100
[2024-12-20] MEDS: cefTRIAXone 2 GM/50 ML BAG IVPB (12:35)
[2024-12-20] MEDS: Normal Saline Flush 10 ML SYR IVP (12:36)
[2024-12-21 12:33] VITALS: BP 151/89; PULSE 62; RESP 16; TEMP 36.9; O2SAT 100
[2024-12-21] MEDS: Normal Saline Flush 10 ML SYR IVP (12:41)
[2024-12-21] MEDS: cefTRIAXone 2 GM/50 ML BAG IVPB (12:41)
[2024-12-22] MEDS: cefTRIAXone 2 GM/50 ML BAG IVPB (12:40)
[2024-12-22] MEDS: Normal Saline Flush 10 ML SYR IVP (12:41)
[2024-12-23] MEDS: Normal Saline Flush 10 ML SYR IVP (12:40)
[2024-12-23] MEDS: cefTRIAXone 2 GM/50 ML BAG IVPB (12:40)
[2024-12-24] MEDS: cefTRIAXone 2 GM/50 ML BAG IVPB (12:33)
[2024-12-24] MEDS: Normal Saline Flush 10 ML SYR IVP (12:39)
[2024-12-25] MEDS: cefTRIAXone 2 GM/50 ML BAG IVPB (12:24)
[2024-12-25] MEDS: Normal Saline Flush 10 ML SYR IVP (12:26)
[2024-12-26] MEDS: cefTRIAXone 2 GM/50 ML BAG IVPB (12:33)
[2024-12-26] MEDS: Normal Saline Flush 10 ML SYR IVP (12:37)
[2024-12-26 12:52] LABS: HCT 30.6 % (40.0-50.0); HGB 10.1 g/dL (13.5-17.5); MCH 31.9 pg (27.0-33.0); MCV 97 fL (80-95); MPV 9.1 fL (8.0-11.0); Platelet Count 303 10^3/uL (130-400); RBC 3.17 10^6/uL (4.36-5.78); RDW 13.6 % (11.8-14.1); RDW-SD 48.8 fL; WBC 7.33 10^3/uL (4.4-10.8)
[2024-12-26 13:08] LABS: ALT 13 U/L (16-63); AST 19 U/L (15-37); Albumin 3.4 g/dL (3.4-5.0); Alkaline Phosphatase 88 U/L (46-116); Anion Gap 6.4 mmol/L (3-11); BUN 18 mg/dL (7-18); Bilirubin, Total 0.2 mg/dL (0.2-1.0); C-Reactive Protein 2.94 mg/dL (<or=0.5); CO2 27.6 mmol/L (21.0-32.0); CREATININE 0.8 mg/dL (0.70-1.30); Chloride 106 mmol/L (98-107); Estimated GFR 98.21 (mL/min/1.73m2); Glucose 100 mg/dL (74-106); Potassium 4.4 mmol/L (3.5-5.1); Sodium 140 mmol/L (136-145); Total Protein 7.7 g/dL (6.4-8.2)
[2024-12-27 12:30] VITALS: BP 159/93; PULSE 62; RESP 16; TEMP 36.5; O2SAT 99
[2024-12-27] MEDS: cefTRIAXone 2 GM/50 ML BAG IVPB (12:41)
[2024-12-27] MEDS: Normal Saline Flush 10 ML SYR IVP (12:41)
[2024-12-28 12:47] VITALS: BP 144/76; PULSE 82; RESP 16; TEMP 36.9; O2SAT 98
[2024-12-28] MEDS: cefTRIAXone 2 GM/50 ML BAG IVPB (12:50)
[2024-12-28] MEDS: Normal Saline Flush 10 ML SYR IVP (12:51)
[2024-12-29] MEDS: cefTRIAXone 2 GM/50 ML BAG IVPB (12:29)
[2024-12-29] MEDS: Normal Saline Flush 10 ML SYR IVP (12:32)
[2025-01-03] MEDS: cefTRIAXone 2 GM/50 ML BAG IVPB (12:30)
[2025-01-04] MEDS: cefTRIAXone 2 GM/50 ML BAG IVPB (12:34)
[2025-01-04] MEDS: Normal Saline Flush 10 ML SYR IVP (12:46)
[2025-01-05] MEDS: cefTRIAXone 2 GM/50 ML BAG IVPB (12:45)
[2025-01-06] MEDS: cefTRIAXone 2 GM/50 ML BAG IVPB (12:35)
[2025-01-06] MEDS: Normal Saline Flush 10 ML SYR IVP (14:07)
[2025-01-07] MEDS: Normal Saline Flush 10 ML SYR IVP (12:35)
[2025-01-07] MEDS: cefTRIAXone 2 GM/50 ML BAG IVPB (12:35)
[2025-01-08] MEDS: cefTRIAXone 2 GM/50 ML BAG IVPB (12:33)
[2025-01-08] MEDS: Normal Saline Flush 10 ML SYR IVP (12:33)
[2025-01-08 12:54] VITALS: BP 126/65; PULSE 72; RESP 20; TEMP 36.9; O2SAT 99
[2025-01-09] MEDS: cefTRIAXone 2 GM/50 ML BAG IVPB (12:32)
[2025-01-09] MEDS: Normal Saline Flush 10 ML SYR IVP (12:37)
[2025-01-09 12:52] LABS: Abs Immature Grans 0.04 10^3/uL (0.0-0.06); Absolute Basophil Count 0.08 10^3/uL (0.0-0.2); Absolute Eosinophil Count 0.32 10^3/uL (0.0-0.7); Absolute Lymphocyte Count 1.49 10^3/uL (1.2-3.4); Absolute Monocyte Count 0.84 10^3/uL (0.1-0.8); Absolute Neutrophil Count 4.52 10^3/uL (1.2-6.7); Basophils % 1.1 %; Eosinophils % 4.4 %; HCT 29.7 % (40.0-50.0); HGB 9.3 g/dL (13.5-17.5); Immature Grans % 0.5 %; Lymphocytes % 20.4 %; MCH 30.4 pg (27.0-33.0); MCHC 31.3 % (32.0-36.0); MCV 97 fL (80-95); MPV 8.5 fL (8.0-11.0); Monocytes % 11.5 %; Neutrophils % 62.1 %; RBC 3.06 10^6/uL (4.36-5.78); RDW 13.5 % (11.8-14.1); RDW-SD 48.5 fL; WBC 7.29 10^3/uL (4.4-10.8)
[2025-01-09 13:09] LABS: Diff Comment PLT Morph Reviewed; Platelet Count 675 10^3/uL (130-400); RBC Morphology Normal
[2025-01-09 13:16] LABS: ALT 19 U/L (16-63); AST 24 U/L (15-37); Albumin 3.4 g/dL (3.4-5.0); Alkaline Phosphatase 105 U/L (46-116); Anion Gap 10.2 mmol/L (3-11); BUN 21 mg/dL (7-18); Bilirubin, Total 0.5 mg/dL (0.2-1.0); C-Reactive Protein 4.58 mg/dL (<or=0.5); CO2 27.8 mmol/L (21.0-32.0); Calcium 9.2 mg/dL (8.5-10.1); Chloride 104 mmol/L (98-107); Creatine Kinase 135 U/L (39-308); Estimated GFR 83.52 (mL/min/1.73m2); Glucose 122 mg/dL (74-106); Potassium 4.1 mmol/L (3.5-5.1); Sodium 142 mmol/L (136-145); Total Protein 7.8 g/dL (6.4-8.2)
[2025-01-10] MEDS: Normal Saline Flush 10 ML SYR IVP (12:38)
[2025-01-10] MEDS: cefTRIAXone 2 GM/50 ML BAG IVPB (12:41)
== END 2025-01-10 23:59 | disposition home or self-care (01) ==
LOC: INF 00:48
PROVIDERS: PCP Family Medicine; Visit Provider Student in an Organized Health Care Education/Training Program
DX: T84.53XA Infection and inflammatory reaction due to internal right knee prosthesis, initial encounter (principal); Z86.14 Personal history of Methicillin resistant Staphylococcus aureus infection
CPT/HCPCS: 36592; 80053; 82550; 85027; 96365; 85025; 86140; J0696; J0878

== ENCOUNTER 2025-01-15 09:10 | Outpatient (CLI) | payer OTHER, SELFPAY ==
--- NOTE | 2025-01-15 08:30 | DI.RAD_ITS ---
Exam(s) XR KNEE RT 2V AP,LAT EXAM: XR KNEE RT 2V AP,LAT CLINICAL HISTORY: revision right total knee. TECHNIQUE: 2D digital imaging was performed of the right knee. Six views obtained. AP, lateral and PA tunnel views were obtained. COMPARISON: CR XR KNEE RT 2V AP,LAT from 11/24/2024 FINDINGS: BONES: No acute fracture is present. No bony destructive lesion is seen. JOINTS: Since the prior examination there has been revision of the right total knee arthroplasty. Th e orthopedic hardware appears in good position. No suspicious lucencies are seen in or around the or thopedic hardware. No joint effusion is seen. SOFT TISSUE: There is marked soft tissue swelling anterior to the knee. Vascular calcifications are present. IMPRESSION: 1. Interval right total knee revision. 2. Marked soft tissue swelling anterior to the knee. 3. No acute fracture. DATA REPOSITORY: RADIATION DOSE DELIVERED:
== END 2025-01-15 09:11 | disposition home or self-care (01) ==
LOC: DIORS 09:11
PROVIDERS: PCP Family Medicine; Referring Provider Family Medicine; Visit Provider Physician Assistant
DX: Z96.651 Presence of right artificial knee joint (principal); T84.53XA Infection and inflammatory reaction due to internal right knee prosthesis, initial encounter
CPT/HCPCS: 73560

== ENCOUNTER 2025-02-09 01:51 | Outpatient (RCR) | payer OTHER, SELFPAY ==
[2025-01-11] MEDS: cefTRIAXone 2 GM/50 ML BAG IVPB (12:36)
[2025-01-12] MEDS: cefTRIAXone 2 GM/50 ML BAG IVPB (12:07)
[2025-01-12] MEDS: Normal Saline Flush 10 ML SYR IVP (12:07)
[2025-01-13] MEDS: cefTRIAXone 2 GM/50 ML BAG IVPB (12:22)
[2025-01-13] MEDS: Normal Saline Flush 10 ML SYR IVP (12:25)
[2025-01-14] MEDS: cefTRIAXone 2 GM/50 ML BAG IVPB (12:23)
[2025-01-14] MEDS: Normal Saline Flush 10 ML SYR IVP (12:25)
[2025-01-15] MEDS: cefTRIAXone 2 GM/50 ML BAG IVPB (09:30)
[2025-01-15] MEDS: Normal Saline Flush 10 ML SYR IVP (10:40)
[2025-01-16 12:49] LABS: Abs Immature Grans 0.03 10^3/uL (0.0-0.06); Absolute Basophil Count 0.08 10^3/uL (0.0-0.2); Absolute Eosinophil Count 0.32 10^3/uL (0.0-0.7); Absolute Lymphocyte Count 1.39 10^3/uL (1.2-3.4); Absolute Monocyte Count 0.77 10^3/uL (0.1-0.8); Absolute Neutrophil Count 5.02 10^3/uL (1.2-6.7); Basophils % 1.1 %; Eosinophils % 4.2 %; HCT 31.5 % (40.0-50.0); HGB 9.9 g/dL (13.5-17.5); Immature Grans % 0.4 %; Lymphocytes % 18.3 %; MCH 30.6 pg (27.0-33.0); MCHC 31.4 % (32.0-36.0); MCV 97 fL (80-95); MPV 8.7 fL (8.0-11.0); Monocytes % 10.1 %; Neutrophils % 65.9 %; Platelet Count 527 10^3/uL (130-400); RBC 3.24 10^6/uL (4.36-5.78); RDW 13.5 % (11.8-14.1); RDW-SD 48.5 fL; WBC 7.61 10^3/uL (4.4-10.8)
[2025-01-16 13:19] LABS: ALT 25 U/L (16-63); AST 55 U/L (15-37); Albumin 3.6 g/dL (3.4-5.0); Alkaline Phosphatase 106 U/L (46-116); Anion Gap 9.4 mmol/L (3-11); BUN 28 mg/dL (7-18); Bilirubin, Total 0.4 mg/dL (0.2-1.0); C-Reactive Protein 2.21 mg/dL (<or=0.5); CO2 26.6 mmol/L (21.0-32.0); CREATININE 0.9 mg/dL (0.70-1.30); Chloride 105 mmol/L (98-107); Estimated GFR 94.78 (mL/min/1.73m2); Glucose 94 mg/dL (74-106); Potassium 4.6 mmol/L (3.5-5.1); Sodium 141 mmol/L (136-145); Total Protein 7.8 g/dL (6.4-8.2)
[2025-01-16 13:26] LABS: Creatine Kinase 1792 U/L (39-308)
[2025-01-16] MEDS: Normal Saline Flush 10 ML SYR IVP (13:28)
[2025-01-17] MEDS: Normal Saline Flush 10 ML SYR IVP (12:58)
[2025-01-18] MEDS: Normal Saline Flush 10 ML SYR IVP (12:39)
[2025-01-19] MEDS: Normal Saline Flush 10 ML SYR IVP (13:16)
[2025-01-20] MEDS: Normal Saline Flush 10 ML SYR IVP (12:56)
[2025-01-21] MEDS: Normal Saline Flush 10 ML SYR IVP (12:52)
[2025-01-22] MEDS: Normal Saline Flush 10 ML SYR IVP (13:20)
[2025-01-23] MEDS: Normal Saline Flush 10 ML SYR IVP (12:50)
[2025-01-23 12:52] LABS: Abs Immature Grans 0.03 10^3/uL (0.0-0.06); Absolute Basophil Count 0.06 10^3/uL (0.0-0.2); Absolute Eosinophil Count 0.24 10^3/uL (0.0-0.7); Absolute Lymphocyte Count 1.41 10^3/uL (1.2-3.4); Absolute Monocyte Count 0.79 10^3/uL (0.1-0.8); Absolute Neutrophil Count 4.02 10^3/uL (1.2-6.7); Basophils % 0.9 %; Eosinophils % 3.7 %; HCT 32.2 % (40.0-50.0); HGB 10.1 g/dL (13.5-17.5); Immature Grans % 0.5 %; Lymphocytes % 21.5 %; MCH 30.5 pg (27.0-33.0); MCHC 31.4 % (32.0-36.0); MCV 97 fL (80-95); MPV 9.3 fL (8.0-11.0); Monocytes % 12.1 %; Neutrophils % 61.3 %; Platelet Count 397 10^3/uL (130-400); RBC 3.31 10^6/uL (4.36-5.78); RDW 13.2 % (11.8-14.1); RDW-SD 46.7 fL; WBC 6.55 10^3/uL (4.4-10.8)
[2025-01-23 13:18] LABS: ALT 32 U/L (16-63); AST 48 U/L (15-37); Albumin 3.9 g/dL (3.4-5.0); Alkaline Phosphatase 101 U/L (46-116); Anion Gap 10.7 mmol/L (3-11); BUN 43 mg/dL (7-18); Bilirubin, Total 0.3 mg/dL (0.2-1.0); C-Reactive Protein 1.66 mg/dL (<or=0.5); CO2 24.3 mmol/L (21.0-32.0); CREATININE 1.3 mg/dL (0.70-1.30); Calcium 8.6 mg/dL (8.5-10.1); Chloride 105 mmol/L (98-107); Estimated GFR 60.96 (mL/min/1.73m2); Glucose 107 mg/dL (74-106); Potassium 4.7 mmol/L (3.5-5.1); Sodium 140 mmol/L (136-145)
[2025-01-23 13:43] LABS: Creatine Kinase 1376 U/L (39-308)
[2025-01-24 12:30] VITALS: BP 132/82; PULSE 72; RESP 16; TEMP 36.5; O2SAT 98
[2025-01-24] MEDS: Normal Saline Flush 10 ML SYR IVP (12:37)
[2025-01-25] MEDS: Normal Saline Flush 10 ML SYR IVP (12:38)
[2025-01-25 13:08] VITALS: BP 128/79; PULSE 72; RESP 15; TEMP 36.3; O2SAT 98
[2025-01-26] MEDS: Normal Saline Flush 10 ML SYR IVP (12:03)
[2025-01-26 12:09] VITALS: BP 128/79; PULSE 72; RESP 15; TEMP 36.3; O2SAT 98
[2025-01-27] MEDS: cefTRIAXone 2 GM/50 ML BAG IVPB (13:00)
[2025-01-27] MEDS: Normal Saline Flush 10 ML SYR IVP (13:06)
[2025-01-28] MEDS: Normal Saline Flush 10 ML SYR IVP (12:46)
[2025-01-28] MEDS: cefTRIAXone 2 GM/50 ML BAG IVPB (12:46)
[2025-01-29] MEDS: Normal Saline Flush 10 ML SYR IVP (12:34)
[2025-01-29] MEDS: cefTRIAXone 2 GM/50 ML BAG IVPB (12:34)
[2025-01-30] MEDS: Normal Saline Flush 10 ML SYR IVP (12:32)
[2025-01-30] MEDS: cefTRIAXone 2 GM/50 ML BAG IVPB (12:32)
[2025-01-30 12:51] LABS: Abs Immature Grans 0.02 10^3/uL (0.0-0.06); Absolute Basophil Count 0.06 10^3/uL (0.0-0.2); Absolute Eosinophil Count 0.19 10^3/uL (0.0-0.7); Absolute Lymphocyte Count 1.25 10^3/uL (1.2-3.4); Absolute Monocyte Count 0.82 10^3/uL (0.1-0.8); Eosinophils % 3.1 %; HGB 10.3 g/dL (13.5-17.5); Immature Grans % 0.3 %; Lymphocytes % 20.7 %; MCH 30.8 pg (27.0-33.0); MCHC 32.2 % (32.0-36.0); MCV 96 fL (80-95); MPV 9.8 fL (8.0-11.0); Monocytes % 13.6 %; Neutrophils % 61.3 %; Platelet Count 289 10^3/uL (130-400); RBC 3.34 10^6/uL (4.36-5.78); WBC 6.04 10^3/uL (4.4-10.8)
[2025-01-30 13:04] LABS: ALT 29 U/L (16-63); AST 21 U/L (15-37); Albumin 3.9 g/dL (3.4-5.0); Alkaline Phosphatase 97 U/L (46-116); Anion Gap 7.7 mmol/L (3-11); BUN 25 mg/dL (7-18); Bilirubin, Total 0.2 mg/dL (0.2-1.0); C-Reactive Protein 1.85 mg/dL (<or=0.5); CO2 24.3 mmol/L (21.0-32.0); CREATININE 1.1 mg/dL (0.70-1.30); Calcium 8.7 mg/dL (8.5-10.1); Chloride 106 mmol/L (98-107); Creatine Kinase 225 U/L (39-308); Glucose 89 mg/dL (74-106); Potassium 4.3 mmol/L (3.5-5.1); Sodium 138 mmol/L (136-145); Total Protein 7.6 g/dL (6.4-8.2)
[2025-01-31] MEDS: cefTRIAXone 2 GM/50 ML BAG IVPB (12:23)
[2025-01-31] MEDS: Normal Saline Flush 10 ML SYR IVP (12:24)
[2025-01-31 13:04] VITALS: BP 128/79; PULSE 72; RESP 15; TEMP 36.3; O2SAT 98
[2025-02-01] MEDS: cefTRIAXone 2 GM/50 ML BAG IVPB (12:27)
[2025-02-01] MEDS: Normal Saline Flush 10 ML SYR IVP (12:30)
[2025-02-02] MEDS: cefTRIAXone 2 GM/50 ML BAG IVPB (12:40)
[2025-02-02] MEDS: Normal Saline Flush 10 ML SYR IVP (12:49)
[2025-02-03] MEDS: cefTRIAXone 2 GM/50 ML BAG IVPB (12:29)
[2025-02-03] MEDS: Normal Saline Flush 10 ML SYR IVP (12:30)
[2025-02-04] MEDS: Normal Saline Flush 10 ML SYR IVP (12:21)
[2025-02-04] MEDS: cefTRIAXone 2 GM/50 ML BAG IVPB (12:21)
[2025-02-05] MEDS: cefTRIAXone 2 GM/50 ML BAG IVPB (10:24)
[2025-02-05] MEDS: Normal Saline Flush 10 ML SYR IVP (10:58)
[2025-02-06] MEDS: Normal Saline Flush 10 ML SYR IVP (12:19)
[2025-02-06] MEDS: cefTRIAXone 2 GM/50 ML BAG IVPB (12:20)
[2025-02-06 12:34] LABS: Abs Immature Grans 0.02 10^3/uL (0.0-0.06); Absolute Basophil Count 0.04 10^3/uL (0.0-0.2); Absolute Eosinophil Count 0.18 10^3/uL (0.0-0.7); Absolute Lymphocyte Count 1.47 10^3/uL (1.2-3.4); Absolute Monocyte Count 0.72 10^3/uL (0.1-0.8); Absolute Neutrophil Count 4.43 10^3/uL (1.2-6.7); Basophils % 0.6 %; Eosinophils % 2.6 %; Immature Grans % 0.3 %; Lymphocytes % 21.4 %; MCH 29.9 pg (27.0-33.0); MCHC 31.3 % (32.0-36.0); MCV 96 fL (80-95); MPV 9.6 fL (8.0-11.0); Monocytes % 10.5 %; Neutrophils % 64.6 %; Platelet Count 317 10^3/uL (130-400); RBC 3.34 10^6/uL (4.36-5.78); RDW 12.9 % (11.8-14.1); RDW-SD 45.7 fL; WBC 6.86 10^3/uL (4.4-10.8)
[2025-02-06 12:57] LABS: ALT 18 U/L (16-63); AST 13 U/L (15-37); Albumin 3.8 g/dL (3.4-5.0); Alkaline Phosphatase 92 U/L (46-116); BUN 30 mg/dL (7-18); Bilirubin, Total 0.2 mg/dL (0.2-1.0); C-Reactive Protein 1.19 mg/dL (<or=0.5); CREATININE 0.9 mg/dL (0.70-1.30); Calcium 8.5 mg/dL (8.5-10.1); Chloride 107 mmol/L (98-107); Creatine Kinase 81 U/L (39-308); Estimated GFR 94.78 (mL/min/1.73m2); Glucose 90 mg/dL (74-106); Potassium 4.6 mmol/L (3.5-5.1); Sodium 141 mmol/L (136-145); Total Protein 7.3 g/dL (6.4-8.2)
[2025-02-07] MEDS: cefTRIAXone 2 GM/50 ML BAG IVPB (12:27)
[2025-02-07] MEDS: Normal Saline Flush 10 ML SYR IVP (12:28)
[2025-02-07 12:29] VITALS: BP 126/78; PULSE 79; RESP 15; TEMP 36.3; O2SAT 98
[2025-02-08] MEDS: cefTRIAXone 2 GM/50 ML BAG IVPB (12:31)
[2025-02-08] MEDS: Normal Saline Flush 10 ML SYR IVP (12:37)
[2025-02-08 12:38] VITALS: BP 122/76; PULSE 82; RESP 15; TEMP 36.7; O2SAT 98
[2025-02-09] MEDS: Normal Saline Flush 10 ML SYR IVP (12:24)
[2025-02-09] MEDS: cefTRIAXone 2 GM/50 ML BAG IVPB (12:24)
== END 2025-02-09 23:59 | disposition home or self-care (01) ==
LOC: INF 01:51
PROVIDERS: Internal Medicine; PCP Family Medicine; Visit Provider Student in an Organized Health Care Education/Training Program
DX: T84.53XA Infection and inflammatory reaction due to internal right knee prosthesis, initial encounter (principal)
CPT/HCPCS: 36415; 36592; 80053; 82550; 96365; 85025; 86140; J0696; J0878

== ENCOUNTER 2025-02-10 03:36 | Outpatient (RCR) | payer OTHER, SELFPAY ==
[2025-02-10] MEDS: cefTRIAXone 2 GM/50 ML BAG IVPB (12:30)
[2025-02-10] MEDS: Bacitracin 1 PACKET (13:23)
[2025-02-10] MEDS: Normal Saline Flush 10 ML SYR IVP (13:23)
== END 2025-03-12 23:59 | disposition home or self-care (01) ==
LOC: INF 03:36
PROVIDERS: PCP Family Medicine; Visit Provider Student in an Organized Health Care Education/Training Program
DX: T84.53XA Infection and inflammatory reaction due to internal right knee prosthesis, initial encounter (principal)
CPT/HCPCS: 96365; J0696